=== PATIENT | female | born 1960 | race Caucasian/White ===

== ENCOUNTER 2021-01-04 08:39 | Outpatient (REF) | payer OTHER, SELFPAY ==
--- NOTE | ~2021-01-04 | US_ITS ---
EXAMINATION: US ABDOMEN COMPLETE CLINICAL INFORMATION: Right upper quadrant pain. COMPARISON: 06/20/2014 ultrasound. TECHNIQUE: Real-time imaging of the abdominal viscera. FINDINGS: PANCREAS: The visualized head and body of the pancreas appears unremarkable. Remainder of the pancreas is obscured by bowel gas. ABDOMINAL AORTA: The proximal, mid, and distal segments are normal in caliber. INFERIOR VENA CAVA: Visualized portions are normal. LIVER: Normal. The liver is normal in size. The liver contour is normal. Parenchymal echogenicity is normal. No focal hepatic lesion. There is no intrahepatic biliary duct dilatation seen. GALLBLADDER: Normal. The gallbladder is physiologically distended without evidence of stones, sludge, polyps, wall thickening or pericholecystic fluid. COMMON BILE DUCT: Normal in caliber measuring 0.6 cm in diameter. RIGHT KIDNEY: Normal. No hydronephrosis. No renal calculi or focal parenchymal lesions. The kidney measures 11.3 cm in maximum dimension. LEFT KIDNEY: Normal. No hydronephrosis. No renal calculi or focal parenchymal lesions. The kidney measures 11.2 cm in maximum dimension. SPLEEN: Normal. The spleen measures 9.5 cm in maximum dimension. FREE FLUID: None. US/US abdomen complete IMPRESSION: 1. Unremarkable abdominal ultrasound. 2. No acute findings seen.
== END 2021-01-04 08:40 | disposition home or self-care (01) ==
LOC: HO.HMGCX 08:39
PROVIDERS: Visit Provider Internal Medicine
DX: R10.11 Right upper quadrant pain (principal)
CPT/HCPCS: 76700

== ENCOUNTER 2021-02-02 11:57 | Outpatient (REF) | payer OTHER, SELFPAY | END 2021-02-02 11:58 | disposition home or self-care (01) | LOC: HO.LNP 11:57 | PROVIDERS: Visit Provider Hospitalist | DX: R30.0 Dysuria (principal) | CPT/HCPCS: 87086; 87088; 87186 ==

== ENCOUNTER 2021-03-27 07:44 | Outpatient (REF) | payer OTHER, SELFPAY ==
[2021-03-27 14:10] LABS: MANUAL DIFF FLAG NO
[2021-03-27 14:14] LABS: Basophils Absolute Auto 0.1 X10*3/uL (0.0-0.2); Basophils Percent Auto 1.1 % (0-2); Eosinophils Absolute Auto 0.3 X10*3/uL (0.0-0.4); Eosinophils Percent Auto 4.9 % (0-4); Hematocrit 37.8 % (37-47); Hemoglobin 12.4 g/dl (12.0-16.0); Mean Corpuscular HGB Conc 32.8 g/dl (31.0-35.0); Mean Corpuscular Hemoglobin 30.7 pg (27.0-33.0); Mean Corpuscular Volume 93.6 fL (80-98); Monocytes Absolute Auto 0.5 X10*3/uL (0.1-1.2); Monocytes Percent Auto 8.9 % (2-11); Neutrophils Absolute Auto 2.6 X10*3/uL (2.0-8.3); Neutrophils Percent Auto 48.1 % (45-73); Platelet Count 263 X10*3/uL (160-400); Red Blood Count 4.04 X10*6/uL (4.20-5.50); Red Cell Distribution Width 13.3 % (11.0-16.0); White Blood Count 5.5 X10*3/uL (4.8-10.8)
[2021-03-27 14:24] LABS: Alanine Aminotransferase 16 U/L (0-31); Anion Gap 13 (12-20); Aspartate Amino Transferase 26 U/L (5-31); Blood Urea Nitrogen 28 mg/dL (9-16); Calcium 9.6 mg/dL (8.4-10.2); Carbon Dioxide 25 mmol/L (22-29); Chloride 106 mmol/L (96-108); Cholesterol 221 mg/dL; Estimated Glomerular Filt Rate > 60; Glucose Fasting 86 mg/dL (60-99); HDL Cholesterol 73 mg/dL; LDL Cholesterol Calculated 126 mg/dl; Potassium 4.2 mmol/L (3.3-5.1); Sodium 140 mmol/L (135-145); Triglycerides 111 mg/dL
== END 2021-03-27 07:45 | disposition home or self-care (01) ==
LOC: HO.HMGCLDS 07:44
PROVIDERS: PCP Internal Medicine; Visit Provider Internal Medicine
DX: Z00.01 Encounter for general adult medical examination with abnormal findings (principal); I10 Essential (primary) hypertension; Z78.0 Asymptomatic menopausal state; Z86.000 Personal history of in-situ neoplasm of breast
CPT/HCPCS: 36415; 80048; 80061; 82306; 84450; 84460; 85025

== ENCOUNTER 2021-04-06 11:46 | Outpatient (REF) | payer OTHER, SELFPAY | END 2021-04-06 11:47 | disposition home or self-care (01) | LOC: HO.LAB 11:46 | PROVIDERS: Visit Provider Nurse Practitioner Family | DX: N34.2 Other urethritis (principal) | CPT/HCPCS: 87086; 87088; 87186 ==

== ENCOUNTER 2021-05-20 09:32 | Outpatient (REF) | payer OTHER, SELFPAY ==
[2021-05-21 03:01] LABS: CT PCR NOT DETECTED (Not Detect.); NG PCR NOT DETECTED (Not Detect.)
[2021-05-24 16:37] LABS: HPV mRNA E6/E7 rflx Not Detected (Not Detected)
== END 2021-05-20 09:33 | disposition home or self-care (01) ==
LOC: HO.LAB 09:32
PROVIDERS: PCP Internal Medicine; Visit Provider Advanced Practice Midwife
DX: Z01.419 Encounter for gynecological examination (general) (routine) without abnormal findings (principal); Z11.51 Encounter for screening for human papillomavirus (HPV); Z11.3 Encounter for screening for infections with a predominantly sexual mode of transmission; Z20.2 Contact with and (suspected) exposure to infections with a predominantly sexual mode of transmission
CPT/HCPCS: 87491; 87591; 87624; 88142

== ENCOUNTER 2022-07-11 14:18 | Outpatient (REF) | payer OTHER, SELFPAY ==
[2022-07-11 15:08] LABS: Binax Internal Control QC Valid; Binax Now Covid-19 Ag Positive (Negative)
== END 2022-07-11 14:19 | disposition home or self-care (01) ==
LOC: HO.HMGCLDS 14:18
PROVIDERS: PCP Internal Medicine; Visit Provider Physician Assistant
DX: Z20.822 Contact with and (suspected) exposure to COVID-19 (principal); J98.8 Other specified respiratory disorders; B97.89 Other viral agents as the cause of diseases classified elsewhere
CPT/HCPCS: 87811; C9803

== ENCOUNTER 2022-10-18 07:07 | Day surgery (SDC) | payer OTHER, SELFPAY ==
[2022-10-12 09:54] VITALS: BMI 22.7
--- NOTE | 2022-10-14 12:31 | HO.ANESPROP2 ---
Documented by User: Nevaeh Topete NP 10/14/22 12:32 HPI - Anesthesia Eval Consult details Narrative: 62yo F for Colonoscopy s/p Right mastectomy PMFSH Active Problems Active Problems: All Active Problems (Updated 10/12/22 @ 09:40 by Argelia Lee, JESSIE) Osteopenia of left femoral neck (Acute) History of ductal carcinoma in situ (DCIS) of breast (Acute) Spondylosis of lumbar region without myelopathy or radiculopathy (Acute) Past Medical History Medical History Cigarette smoker motivated to quit Hepatitis C History of COVID-19 History of ductal carcinoma in situ (DCIS) of breast History of varicose veins On Chantix therapy Osteopenia of left femoral neck Spondylosis of lumbar region without myelopathy or radiculopathy Family History Family History Father CAD (coronary artery disease) Mother Medical history non-contributory Brother No problems noted. Sister No problems noted. Daughter No problems noted. Surgical History Surgical History H/O colonoscopy History of endometrial ablation History of right mastectomy History of tubal ligation Social History Social History Housing: House Are you a primary long term care phlebotomist to a significant other at home: No Do you presently have visiting nurse or other home services: No Alcohol intake: current Alcohol intake frequency: holidays/special occasions only Patient Tobacco Use Status: Current everyday Tobacco user Tobacco use type: Cigarette Cigarette Packs Per Day: 0 Cigarettes Per Day: 5 Years Smoked: 30+ e-Cigarette/Vaping Use: Never Used Use of substances other than those prescribed or required for medical reasons: No Have you been hit, kicked, punched, or otherwise hurt by someone within the past year? If so, by whom?: No Are you DNR?: No Advance Directives: No Advance Directives Information Provided: Yes (brochure mailed) Advance Directives on File: No Recently lost weight without trying: No Eating poorly because of decreased appetite: No Nutrition Risks: No Nutritional Risk Poor oral hygiene: No (upper & lower full dentures) service: No Current occupational status: employed Sexual orientation: Straight/Heterosexual Gender identity: Female Cognitive needs: No Hearing needs: No Vision needs: No Meds Allergies Allergy/AdvReac Type Severity Reaction Status Date / Time No Known Allergies Allergy Verified 07/20/22 13:40 [No Known Allergies*] Home Medications Medication Instructions Recorded Confirmed Last Taken Type ascorbate calcium (vitamin C) 500 500 mg PO DAILY 03/24/21 10/12/22 Unknown History mg tablet calcium carbonate 500 mg calcium 500 mg PO DAILY 03/24/21 10/12/22 Unknown History (1,250 mg) tablet (Calcium 500) cholecalciferol (vitamin D3) 25 25 mcg PO DAILY 03/24/21 10/12/22 Unknown History mcg (1,000 unit) capsule multivitamin 1 tab PO DAILY 03/24/21 10/12/22 Unknown History Exam Exam Date and Time: October 14, 2022 1231 Height,Weight and Vital Signs: Height 5 ft 7 in Weight 65.771 kg Assessment and Plan Assessment Anesthesia Assessment: Chart Reviewed Documented by User: Guillermo Lawrence MD 10/18/22 09:02 [facility] Past Medical History Medical History Cigarette smoker motivated to quit Hepatitis C History of COVID-19 History of ductal carcinoma in situ (DCIS) of breast History of varicose veins On Chantix therapy Osteopenia of left femoral neck Spondylosis of lumbar region without myelopathy or radiculopathy Family History Family History Father CAD (coronary artery disease) Mother Medical history non-contributory Brother No problems noted. Sister No problems noted. Daughter No problems noted. Family history of problems with anesthesia: No Surgical History Surgical History H/O colonoscopy History of endometrial ablation History of right mastectomy History of tubal ligation History of Problems with Anesthesia: No Social History Social History Housing: House Are you a primary long term care phlebotomist to a significant other at home: No Do you presently have visiting nurse or other home services: No Alcohol intake: current Alcohol intake frequency: holidays/special occasions only Patient Tobacco Use Status: Current everyday Tobacco user Tobacco use type: Cigarette Cigarette Packs Per Day: 0 Cigarettes Per Day: 5 Years Smoked: 30+ e-Cigarette/Vaping Use: Never Used Use of substances other than those prescribed or required for medical reasons: No Have you been hit, kicked, punched, or otherwise hurt by someone within the past year? If so, by whom?: No Are you DNR?: No Advance Directives: No Advance Directives Information Provided: Yes (brochure mailed) Advance Directives on File: No Recently lost weight without trying: No Eating poorly because of decreased appetite: No Nutrition Risks: No Nutritional Risk Poor oral hygiene: No (upper & lower full dentures) service: No Current occupational status: employed Sexual orientation: Straight/Heterosexual Gender identity: Female Cognitive needs: No Hearing needs: No Vision needs: No Meds Allergies Allergy/AdvReac Type Severity Reaction Status Date / Time No Known Allergies Allergy Verified 07/20/22 13:40 [No Known Allergies*] Home Medications Medication Instructions Recorded Confirmed Last Taken Type ascorbate calcium (vitamin C) 500 500 mg PO DAILY 03/24/21 10/12/22 Unknown History mg tablet calcium carbonate 500 mg calcium 500 mg PO DAILY 03/24/21 10/12/22 Unknown History (1,250 mg) tablet (Calcium 500) cholecalciferol (vitamin D3) 25 25 mcg PO DAILY 03/24/21 10/12/22 Unknown History mcg (1,000 unit) capsule multivitamin 1 tab PO DAILY 03/24/21 10/12/22 Unknown History Exam Airway Mallampati Class: II TM Dist: >3cm Denture: Upper and Lower Loose/Missing/Broken Teeth: No Heart: rrr Lungs: clear Assessment and Plan Final Anesthetic Review Family History of Problems with Anesthesia: No History of Problems with Anesthesia: No NPO: Yes ASA Class: II Final Preanesthetic Review: No Changes in Pt Med Stat, Meds/Allgs Chart Reviewed and Anes Risks/Benef Reviewed Patient Risk: Intermediate Procedure Risk: Low Anesthetic Plan Anesthetic Plan: MAC: Disposition: Standard PACU
[2022-10-18 07:24] VITALS: BP 134/87; PULSE 80; RESP 16; TEMP 36.4; O2SAT 99
[2022-10-18] MEDS: Lactated Ringers 1,000 ML 100 ML IVCONT (07:37)
--- NOTE | 2022-10-18 09:05 | MHC.SHP ---
Pre-Procedural Eval Section A Date of Service: 10/18/22 Section B Chief Complaint: screening Details of Present Illness: 62 y.o F here for screening colo. Last colonoscopy in June of 2012 that showed no polyps. pt also previously had complained of intermittent dysphagia that has now resolved. ? Relevant Social History: Tobacco Use Present Medications: see Short Stay Collaborative assessment Medical History: Significant History (Osteopenia, DCIS ) Allergies: Allergies Allergy/AdvReac Type Severity Reaction Status Date / Time No Known Allergies Allergy Verified 07/20/22 13:40 [No Known Allergies*] Review of Systems Review of Systems Comment: 10 point ROS negative except as noted above Exam Exam Comment: Gen appear: No acute distress, well nourished HEENT: no icterus Chest: No overt resp distress Abd: soft, nontender, nondistended Psych: Stable affect, answering questions appropriately Neuro: A/Ox3 noted to move all extremities spontaneously Ext: no peripheral edema Plan Diagnosis/Plan: Unchanged I have reviewed the history and physical and performed a pertinent physical examination on my patient. No changes have occurred unless specified. Time Spent With Patient Time: Total time managing care of this patient today ____ minutes.
--- NOTE | 2022-10-18 09:08 | P.OP_ITS ---
Operative Note Operative Note Date of Service: 10/18/22 Narrative: Procedure: Colonoscopy Indication: Screening Endoscopist: Aisha Zimmerman MD Anesthesia Provider: Dr Guillermo Lawrence Anesthesia type: MAC Instrument: Olympus [id number]-H190L Consent: Indication, risks vs benefits, and alternatives were discussed with the patient who gave written informed consent to proceed. EKG, pulse, pulse oximetry and blood pressure were monitored throughout the procedure. Please see anesthesia flowsheet. Procedure: The patient was brought to the procedure room and placed in the left lateral decubitus position. IV medications were administered by the anesthesia provider in attendance. A digital rectal exam was performed which was normal. The colonoscope was then inserted through the anus and advanced through the colon to the cecum at 75 cm,and terminal ileum. Ileocecal valve and appendiceal orifice were identified. Mucosa was carefully examined under high definition white light as the instrument was slowly withdrawn in a retrograde panoramic fashion. Retroflexion was performed in rectum. The procedure was somewhat difficult due to sharp angulation in sigmoid colon at 35 cm and patient was turned to supine position to advance and then turned back to left lateral decubitus. There were no immediate obvious complications. The quality of the prep was BBPS: 2+3+2 = adequate Withdrawal time 16 minutes. Limitations: No limitations. Findings: Mucosa: Normal to cecum and terminal ileum. Protruding lesions: * 2 sessile polyp of size 3-8 mm in cecum. Cold snare polypectomy was performed. The polyp was completely removed and retrieved. * 2 flat polyp of size 5-7 mm in ascending colon. Cold snare polypectomy was performed. The polyp was completely removed and retrieved. * 1 sessile polyp of size 5 mm in descending colon. Cold snare polypectomy was performed. The polyp was completely removed and retrieved. * 1 sessile polyp of size 7 mm in sigmoid colon. Cold snare polypectomy was performed. The polyp was completely removed and retrieved. * Medium internal hemorrhoids without stigmata of recent bleeding. Excavated lesions: * Small mouthed diverticula in left sided of the colon. Impression: 1. Normal colon and terminal ileum mucosa 2. Total of 6 polyps removed from cecum, ascending, descending, and sigmoid colon. 3. Left sided diverticulosis 4. Internal hemorrhoids Recommendations: - Follow path results. - Repeat colonoscopy in 3 years if polyps are adenomas or sessile serrated. - Optimize fiber intake.
[2022-10-18 10:02] VITALS: BP 122/82; PULSE 66; RESP 14; TEMP 36.1; O2SAT 99
[2022-10-18 10:16] VITALS: BP 131/88; PULSE 68; RESP 16; TEMP 36.1; O2SAT 98
== END 2022-10-18 10:41 ==
PROVIDERS: PCP Internal Medicine; Visit Provider Internal Medicine
PROC: 0DJD8ZZ Inspection of Lower Intestinal Tract, Via Natural or Artificial Opening Endoscopic (ICD-10-PCS; CPT 45378; principal; 2022-10-18 08:20)
DX: Z12.11 Encounter for screening for malignant neoplasm of colon (principal); R13.10 Dysphagia, unspecified; D12.0 Benign neoplasm of cecum; D12.2 Benign neoplasm of ascending colon; D12.4 Benign neoplasm of descending colon; K63.5 Polyp of colon; K57.30 Diverticulosis of large intestine without perforation or abscess without bleeding; K64.8 Other hemorrhoids; B19.20 Unspecified viral hepatitis C without hepatic coma; M85.88 Other specified disorders of bone density and structure, other site; Z85.3 Personal history of malignant neoplasm of breast; Z90.11 Acquired absence of right breast and nipple; Z79.899 Other long term (current) drug therapy; F17.210 Nicotine dependence, cigarettes, uncomplicated
CPT/HCPCS: 45385; 88305

== ENCOUNTER → 2022-11-01 11:55 | Outpatient (BNVA) | payer OTHER, SELFPAY | PROVIDERS: PCP Internal Medicine; Visit Provider Nurse Practitioner Family | DX: Z13.89 Encounter for screening for other disorder (principal) ==

== ENCOUNTER 2022-11-21 14:01 | Outpatient (REF) | payer OTHER, SELFPAY ==
--- NOTE | ~2022-11-21 | MM_ITS ---
EXAMINATION: MM SCREENING DIGITAL BREAST TOMOSYNTHESIS, LEFT CLINICAL INFORMATION: Screening. Asymptomatic. Status post right mastectomy. COMPARISON: Mammography: November 03, 2021 and studies dating back to June 01, 2016 TECHNIQUE: Digital breast tomosynthesis is performed in both the craniocaudal and mediolateral oblique views along with computer-aided detection (CAD). Synthesized 2D images are generated from the tomosynthesis. FINDINGS: The breasts are extremely dense, which lowers the sensitivity of mammography (ACR BI-RADS breast composition Category d). There are no significant masses, abnormal calcifications, or other abnormalities. MM/MM tomosynthesis screening LT IMPRESSION: No significant changes from prior exam. ASSESSMENT: BI-RADS 1: Negative RECOMMENDATION: Routine annual mammography screening. This patient's information was entered into a reminder system with a target due date for their next mammogram.
== END 2022-11-21 14:02 | disposition home or self-care (01) ==
LOC: HO.MAMMO 14:01
PROVIDERS: PCP Internal Medicine; Visit Provider Internal Medicine
DX: Z12.31 Encounter for screening mammogram for malignant neoplasm of breast (principal)
CPT/HCPCS: 77063; 77067

== ENCOUNTER → 2023-03-07 14:07 | Outpatient (BNVA) | payer OTHER, SELFPAY | PROVIDERS: PCP Internal Medicine; Visit Provider Advanced Practice Midwife ==

== ENCOUNTER 2023-08-18 15:11 | Outpatient (REF) | payer OTHER, SELFPAY | END 2023-08-18 15:12 | disposition home or self-care (01) | LOC: HO.HOSX 15:11 | PROVIDERS: Visit Provider Physician Assistant | DX: Z13.89 Encounter for screening for other disorder (principal) ==

== ENCOUNTER 2023-11-24 15:49 | Outpatient (REF) | payer OTHER, SELFPAY ==
--- NOTE | ~2023-11-24 | MM_ITS ---
EXAMINATION: MM SCREENING DIGITAL BREAST TOMOSYNTHESIS, BILATERAL CLINICAL INFORMATION: Screening. Asymptomatic. The patient is status post right mastectomy. COMPARISON: Mammography: This study is compared with prior exams dating back to 2018. TECHNIQUE: Digital breast tomosynthesis is performed in both the craniocaudal and mediolateral oblique views along with computer-aided detection (CAD). Synthesized 2D images are generated from the tomosynthesis. FINDINGS: The breasts are heterogeneously dense, which may obscure small masses (ACR BI-RADS breast composition Category c). There are no significant masses, abnormal calcifications, or other abnormalities. MM/MM tomosynthesis screening LT IMPRESSION: No mammographic evidence of malignancy. ASSESSMENT: BI-RADS BI-RADS 1 - Negative RECOMMENDATION: Routine annual mammography screening. 1 year F/U This examination should not preclude the clinical evaluation of a suspicious palpable abnormality. This patient's information was entered into a reminder system with a target due date for their next mammogram.
== END 2023-11-24 15:50 | disposition home or self-care (01) ==
LOC: HO.MAMMO 15:49
PROVIDERS: PCP Internal Medicine; Visit Provider Internal Medicine
DX: Z12.31 Encounter for screening mammogram for malignant neoplasm of breast (principal)
CPT/HCPCS: 77063; 77067

== ENCOUNTER → 2023-11-24 16:30 | Outpatient (BNV) | payer OTHER, SELFPAY | PROVIDERS: PCP Internal Medicine; Visit Provider Radiology Diagnostic Radiology | DX: Z12.31 Encounter for screening mammogram for malignant neoplasm of breast (principal) | CPT/HCPCS: 77063; 77067 ==

== ENCOUNTER 2024-02-07 14:01 | Outpatient (AMB) | payer OTHER, SELFPAY ==
--- NOTE | 2024-02-07 14:23 | AM.OFFWIN_ITS ---
Intake Vital Signs 02/07/24 14:24 Height 5 ft 7 in Weight 136 lb 4 oz BMI 21.3 BP 110/62 Blood Pressure Location Lt brachial Position Sitting Pulse 76 Pulse Source Pulse Oximeter Temp 98.7 F Temp Source Oral Pulse Oximetry (%) 98 Oxygen Delivery Method Room Air Intake Visit Reasons: EP RT arm pain (lobby) Intake Note: Patient is here with right arm pain for about a month, last week and half has been worse, waking her up in the middle of the night. Patient Tobacco Use Status: Current everyday Tobacco user Allergies No Known Allergies [No Known Allergies*] Allergy (Verified 02/07/24 14:26) Do you need a note to return to daycare/school/sports/work: No HPI HPI Comments History of Present Illness Details The patient presents to urgent care for evaluation of left arm pain. It has been going on for about a month. 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 She feels that this might be contributing to the discomfort she is experiencing over her biceps. There was no direct trauma. No swelling bruising. She is still able to work. Patient has been using Tylenol for pain. [facility] Medical History Cigarette smoker motivated to quit Hepatitis C History of COVID-19 History of ductal carcinoma in situ (DCIS) of breast History of varicose veins On Chantix therapy Osteopenia of left femoral neck Spondylosis of lumbar region without myelopathy or radiculopathy Tubular adenoma Surgical History H/O colonoscopy History of endometrial ablation History of esophagogastroduodenoscopy (EGD) History of right mastectomy History of tubal ligation Family History Father CAD (coronary artery disease) Mother Medical history non-contributory Brother No problems noted. Sister No problems noted. Daughter No problems noted. Social History (Updated 03/07/23 @ 14:25 by LAWRENCE Proctor) Housing: House Are you a primary health care facilities inspector to a significant other at home: No Do you presently have visiting nurse or other home services: No Alcohol intake: current Alcohol intake frequency: holidays/special occasions only Patient Tobacco Use Status: Current everyday Tobacco user Tobacco use type: Cigarette Cigarette Packs Per Day: 0 Cigarettes Per Day: 5 Years Smoked: 30+ e-Cigarette/Vaping Use: Never Used service: No Current occupational status: employed Sexual orientation: Straight/Heterosexual Gender identity: Female Cognitive needs: No Hearing needs: No Vision needs: No Physical Exam Vital Signs: Last Vital Signs Temp 98.7 F 02/07/24 14:24 Pulse 76 02/07/24 14:24 BP 110/62 02/07/24 14:24 Pulse Ox 98 02/07/24 14:24 Oxygen Delivery Method Room Air 02/07/24 14:24 BMI result Body Mass Index 21.3 Const General: healthy appearing and no acute distress Orientation/consciousness: patient oriented x3 Eyes Corneas: corneas normal Pupils: Equal, round and reactive pupils present Chest Chest palpation & inspection: no tenderness Resp Effort & Inspection: normal respiratory effort and able to speak in complete sentences Neuro General: patient oriented x3 Cranial nerves: Yes Equal, round and reactive pupils present Extrem Other: Right upper extremity: Unremarkable in appearance no soft tissue swelling no bony deformity no bruising no redness. Minimally tender to palpation over the deltoid. No significant bicipital tendonitis appreciated on exam Full range of motion of the right upper extremity full range of motion of the elbow wrist and hand. Psych Appearance: grossly normal Attitude: cooperative Assessment & Plan Assessment & Plan (1) Overuse syndrome: Code(s): X50.3XXA - Overexertion from repetitive movements, initial encounter Plan Right upper extremity pain secondary to overuse. Muscle strain likely. Tendon itis possibly though not exquisitely tender over the bicipital tendon insertion. Recommend ibuprofen and resting the right upper extremity. Coding Level of Care Code Est Pt Level 3 (65198) Diagnoses Overuse syndrome X50.3XXA
[2024-02-07 14:24] VITALS: BP 110/62; PULSE 76; TEMP 37.1; O2SAT 98; BMI 21.3
== END 2024-02-07 15:14 | disposition home or self-care (01) ==
PROVIDERS: PCP Internal Medicine; Visit Provider Emergency Medicine
DX: M79.601 Pain in right arm (principal); X50.3XXA Overexertion from repetitive movements, initial encounter; Z04.2 Encounter for examination and observation following work accident
CPT/HCPCS: 99213

== ENCOUNTER 2024-05-21 13:08 | Outpatient (AMB) | payer OTHER, SELFPAY ==
--- NOTE | 2024-05-21 13:12 | MHC.OFFVIS ---
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 She is doing well with no concerns. Attempting to eat a healthy diet with calcium and vitamin D and stays active with exercise. Currently not sexually active. Denies any vaginal dryness or irritation. STI testing offered; she declined. Last pap smear; 2020. Last mammogram; 2023. Colonoscopy is UTD. Denies any family history of breast, ovarian or colon cancer. She reports she has cut down on smoking. 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 Sister No problems noted. Daughter No problems noted. Social History Housing: House Are you a primary manager urgent care to a significant other at home: No Do you presently have visiting nurse or other home services: No Alcohol intake: current Alcohol intake frequency: holidays/special occasions only Patient Tobacco Use Status: Current everyday Tobacco user Tobacco use type: Cigarette Cigarette Packs Per Day: 0 Cigarettes Per Day: 5 Years Smoked: 30+ e-Cigarette/Vaping Use: Never Used service: No Current occupational status: employed Sexual orientation: Straight/Heterosexual Gender identity: Female Cognitive needs: No Hearing needs: No Vision needs: No Female Reproductive History Menstrual Total pregnancies: 1 Full term: 1 Number of Living Children: 1 Date of last pap smear: 05/20/21 (neg pap and hpv) Date of Mammogram: 11/24/23 (Birad 1) History of abnormal mammogram: Yes Review of Systems Const All systems reviewed & are unremarkable except as noted in HPI and below Reports as per HPI Eyes Reports no additional complaints ENT Reports no additional complaints Card Reports no additional complaints Resp Reports no additional complaints GI Reports as per HPI and Reports no additional complaints Reports as per HPI Musc Reports no additional complaints Skin/Breast Reports as per HPI Neuro Reports no additional complaints Psych Reports no additional complaints Endo Reports no additional complaints Trung/Lymph Reports no additional complaints Aller/Immun Reports no additional complaints Physical Exam Vital Signs: Last Vital Signs BP 120/80 05/21/24 13:14 BMI result Body Mass Index 20.0 Const General: cooperative, healthy appearing, no acute distress, well developed and alert Orientation/consciousness: patient oriented x3 HEENT Head: Yes normal to inspection Eyes General: appearance normal, both eyes and all related structures Neck Neck: Yes normal visual inspection Thyroid: Thyroid normal Chest Other: Right postsurgical scarring in implant Chest palpation & inspection: normal inspection of the chest and other (no puckering, dimpling, peau de orange, retraction, discharge, masses) Breast/axilla inspection: normal inspection of the breasts Breast/axilla palpation: normal palpation of the breasts Resp Effort & Inspection: normal respiratory effort GI Inspection: Yes normal to inspection Palpation (GI): Soft to palpation Rectal Exam - Female: deferred General: Yes bladder normal to palpation External Female Exam: normal external appearance and normal appearance of the urethra Speculum Exam - Vagina: normal appearance of the vagina, normal palpation, normal vaginal discharge and vagina atrophic Speculum Exam - Cervix: normal appearance of the cervix and normal palpation Bimanual exam- vagina & uterus: normal bimanual exam, normal palpation, uterine size normal, bladder normal to palpation, normal palpation and non-tender Bimanual Exam- Adnexa, other: no masses Skin General skin exam: no rashes or lesions noted Rashes: no rashes Neuro General: patient oriented x3 Cognition (Neuro): normal cognition Extrem General: Yes normal to inspection Psych Attitude: cooperative Thought process: Normal thought process present Assessment & Plan Assessment & Plan (1) Encounter for well woman exam with routine gynecological exam: Code(s): Z01.419 - Encounter for gynecological examination (general) (routine) without abnormal findings Category: Medical Plan Discussed: Current recommendations for pap smears per ASCCP guidelines. Breast awareness, periodic self breast exams and yearly mammogram. Maintain a healthy lifestyle, well balanced diet including Calcium 1,200 mg and Vitamin D 600 IU daily, and routine exercise. Contact the office with any postmenopausal bleeding. Patient verbalizes understanding and agrees to the plan of care. She was given opportunity to ask questions and all questions were answered to the best of my ability. 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 This note is constructed using voice recognition software. While every effort has been made to ensure accuracy, clay puddler errors may have been included. Coding Level of Care Code Est Pt Prev Care >65y(35942) Diagnoses Encounter for well woman exam with routine gynecological exam Z01.419
[2024-05-21 13:14] VITALS: BP 120/80
== END 2024-05-21 13:42 | disposition home or self-care (01) ==
PROVIDERS: PCP Internal Medicine; Visit Provider Advanced Practice Midwife
DX: Z01.419 Encounter for gynecological examination (general) (routine) without abnormal findings (principal)
CPT/HCPCS: 99397

== ENCOUNTER → 2024-05-21 13:08 | Outpatient (BNVA) | payer OTHER, SELFPAY | PROVIDERS: PCP Internal Medicine; Visit Provider Advanced Practice Midwife ==

== ENCOUNTER 2024-05-31 08:32 | Outpatient (AMB) | payer OTHER, SELFPAY ==
--- NOTE | 2024-05-31 08:42 | MHC.PC.OV ---
Intake Visit Reasons: depression Andriod [phone] Allergies No Known Allergies [No Known Allergies*] Allergy (Verified 05/31/24 17:05) Medication List - Last Reconciled 05/31/24 by Shoshana Hunter MD ascorbate calcium (vitamin C) 500 mg PO DAILY calcium carbonate (Calcium 500) 500 mg PO DAILY cholecalciferol (vitamin D3) 25 mcg PO DAILY diclofenac sodium 1% (Arthritis Pain (diclofenac)) 2 grams topical QID multivitamin 1 tab PO DAILY Tobacco use date assessed: 05/31/24 Fall risk assessment: No Falls in past year Last assessed Fall Risk: 05/31/24 Dental Screening Dental Screen Date: 05/31/24 Did you have a dental visit in the last 12 months?: No Did you have a dental problem in the last 6 months where you did not have access to dental care?: No Was dental information given to patient?: Patient declined HPI depression Andriod [phone] HPI Details Done as here complaining of feeling anxious all the time, patient states that she has been under lot of stress at home with her personal life. Complains of having no energy, has anhedonia , does not want to do anything. . 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 Sister No problems noted. Daughter No problems noted. Social History Housing: House Are you a primary direct care specialist to a significant other at home: No Do you presently have visiting nurse or other home services: No Alcohol intake: current Alcohol intake frequency: holidays/special occasions only Patient Tobacco Use Status: Current everyday Tobacco user Tobacco use type: Cigarette Cigarette Packs Per Day: 0 Cigarettes Per Day: 5 Years Smoked: 30+ e-Cigarette/Vaping Use: Never Used service: No Current occupational status: employed Sexual orientation: Straight/Heterosexual Gender identity: Female Cognitive needs: No Hearing needs: No Vision needs: No Questionnaire PHQ-9 Over the last 2 weeks, how often have you been bothered by any of the following problems? 1. Little interest or pleasure in doing things: more than half the days 2. Feeling down, depressed, or hopeless: more than half the days 3. Trouble falling or staying asleep, or sleeping too much: nearly every day 4. Feeling tired or having little energy: nearly every day 5. Poor appetite or overeating: more than half the days 6. Feeling bad about yourself - or that you are a failure or have let yourself or your family down: more than half the days 7. Trouble concentrating on things, such as reading the newspaper or watching television: several days 8. Moving or speaking so slowly that other people could have noticed. Or the opposite - being so fidgety or restless that you have been moving around a lot more than usual: more than half the days 9. Thoughts that you would be better off or of hurting yourself in some way: not at all Total score: 17 Depression Screening Interpretation: Positive Depression Screening Follow-up: New Medication prescribed and Community Mental Health Worker F/U Depression Screening Done: Yes 53635 - PHQ-9 Billing: Yes Source: Developed by Drs. Piyush Crandall, Melania Cunningham, Aleksander Lira and colleagues, with an educational claudio from [employer]. Thrive Questionnaire Date Thrive assessed: 05/31/24 I am a: Patient What is your living situation today?: I have a steady place to live Within the past 12 months, did the food you bought not last and you didn't have the money to get more?: Sometimes True Within the past 12 months, did you worry whether your food would run out before you got money to buy more?: Sometimes True Do you have trouble paying for medicines?: No Do you have trouble getting transportation to medical appointments?: No Do you have trouble paying your heating and electricity bill?: No Do you have trouble taking care of your child, family member or friend?: No Do you have trouble with day-to-day activities such as bathing, preparing meals, shopping, managing finances, etc.?: No Are you currently unemployed and looking for a job?: No Are you interested in more education?: No Please select the resources that you would like help with: None Currently or been in a relationship where the following occur: No concerns reported THRIVE Score: 2 AUDIT C Alcohol Use Questionnaire (AUDIT-C) 1. How often do you have a drink containing alcohol?: 2-4 times a month 2. How many drinks containing alcohol do you have on a typical day when you are drinking?: 1 or 2 3. How often do you have six or more drinks on one occasion?: Never Total Score: 2 Score Reviewed/Action Taken: Yes CITLALLI-7 AMB Questionnaire CITLALLI-7 Date CITLALLI - 7 assessed: 05/31/24 Feeling nervous, anxious, or on edge: 1 = Several days Not being able to stop or control worryin = Several days Worrying too much about different things: 2 = More than half the days Trouble relaxin = More than half the days Being so restless that it is hard to sit still: 1 = Several days Becoming easily annoyed or irritable: 2 = More than half the days Feeling afraid as if something awful might happen: 1 = Several days Total CITLALLI-7 score (0-4 normal; 5-9 mild; 10-14 moderate; 15-21 severe): 10 Source: Developed by Drs. Piyush Crandall, Melania Cunningham, Aleksander Lira and colleagues, with an educational caludio from [employer]. CITLALLI-7 Assessment Billing CITLALLI-7 Assessment Tool: CITLALLI-7 Assessment 79407 Review of Systems Const Reports as per HPI, Denies body aches, Reports difficulty sleeping and Reports poor appetite Eyes Reports no additional complaints ENT Reports no additional complaints Card Reports no additional complaints Resp Reports no additional complaints GI Denies abdominal pain, Denies change in bowel habits and Denies heartburn Reports as per HPI Musc Reports no additional complaints Skin/Breast Reports as per HPI Neuro Reports no additional complaints Psych Reports as per HPI Endo Reports no additional complaints Trung/Lymph Reports no additional complaints Aller/Immun Reports no additional complaints Physical exam (Primary Care) Tobacco/Smoking Status: Tobacco use Status Tobacco use date assessed 05/31/24 05/31/24 08:47 Patient Tobacco Use Status Current everyday Tobacco 05/31/24 08:47 Tobacco use type Cigarette 05/31/24 08:47 e-Cigarette/Vaping Use Never Used 05/31/24 08:47 PHQ-9: PHQ-9 Score PHQ-9: Total score 17 05/31/24 10:17 Depression Screening Interpretation: Positive Depression Screening Follow-up: New Medication prescribed and Community Mental Health Worker F/U Thrive Assessment: Date of Thrive Assessment Date Thrive assessed 05/31/24 05/31/24 08:47 Currently or been in a relationship where the following occur: No concerns reported Telehealth Telehealth Telehealth Platform: POKKT Location of provider rendering services: practice address Location of patient: address on file Patient Identification confirmed using: Name, : Yes Telehealth method: video Patient verbally consented to treatment: Yes Patient verbally consented to billing insurance company: Yes Patient informed of any privacy concerns related to visit: Yes Minutes spent on Phone/Video with Pt.: 15 Assessment and Plan Assessment & Plan (1) Generalized anxiety disorder: Code(s): F41.1 - Generalized anxiety disorder Plan: Will start on sertraline 50 mg per tablet, advised to try initially take half a tablet for 1 week, and see how she is doing on it if stable on that dose continue with the same dose otherwise may increase to 50 mg once a day on the 2nd week. Referred to our mental health coordinator for assistance in getting in for psychotherapy. Will see her back for follow-up via telehealth in 4 weeks after starting medication Medications: New sertraline 50 mg PO DAILY 30 tabs 0RF Coding Level of Care Code Tele Est Pt Level 3 (68424) Diagnoses Generalized anxiety disorder F41.1 Additional Codes CITLALLI-7 Assessment Billing - CITLALLI-7 Assessment Tool: CITLALLI-7 Assessment 92178 ([id number])
== END 2024-05-31 13:33 | disposition home or self-care (01) ==
LOC: HO.HMGC 08:32
PROVIDERS: PCP Internal Medicine; Visit Provider Internal Medicine
DX: F41.1 Generalized anxiety disorder (principal)
CPT/HCPCS: 96127; 99213

== ENCOUNTER 2024-07-19 10:23 | Outpatient (AMB) | payer OTHER, SELFPAY ==
--- NOTE | 2024-07-19 10:57 | A.OFFPC_ITS ---
Intake Visit Reasons: 4 Week follow up depression Andriod [phone] Allergies No Known Allergies [No Known Allergies*] Allergy (Verified 07/19/24 11:22) Medication List - Last Reconciled 07/19/24 by Shoshana Hunter MD ascorbate calcium (vitamin C) 500 mg PO DAILY calcium carbonate (Calcium 500) 500 mg PO DAILY cholecalciferol (vitamin D3) 25 mcg PO DAILY diclofenac sodium 1% (Arthritis Pain (diclofenac)) 2 grams topical QID multivitamin 1 tab PO DAILY Tobacco use date assessed: 07/19/24 Fall risk assessment: No Falls in past year Last assessed Fall Risk: 07/19/24 Dental Screening Dental Screen Date: 07/19/24 Did you have a dental visit in the last 12 months?: No Did you have a dental problem in the last 6 months where you did not have access to dental care?: No Was dental information given to patient?: Patient declined HPI 4 Week follow up depression Andriod [phone] HPI Details 64-year-old lady here today for follow-u p on her depression with anxiety. She was started on sertraline 50 mg once a day, but had patient has stopped taking the medication as it was causing her to have insomnia. Patient also states that she has been more depressed lately, mom recently . She has been referred to [facility] in counseling, but was unable to keep her appointment by telehealth as she was unable to connect online with them. Patient would like to have in person therapy.. 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 Sister No problems noted. Daughter No problems noted. Social History Housing: House Are you a primary manager medicare to a significant other at home: No Do you presently have visiting nurse or other home services: No Alcohol intake: current Alcohol intake frequency: holidays/special occasions only Patient Tobacco Use Status: Current everyday Tobacco user Tobacco use type: Cigarette Cigarette Packs Per Day: 0 Cigarettes Per Day: 5 Years Smoked: 30+ e-Cigarette/Vaping Use: Never Used service: No Current occupational status: employed Sexual orientation: Straight/Heterosexual Gender identity: Female Cognitive needs: No Hearing needs: No Vision needs: No Questionnaire PHQ-9 Over the last 2 weeks, how often have you been bothered by any of the following problems? 1. Little interest or pleasure in doing things: several days 2. Feeling down, depressed, or hopeless: several days 3. Trouble falling or staying asleep, or sleeping too much: more than half the days 4. Feeling tired or having little energy: more than half the days 5. Poor appetite or overeating: more than half the days 6. Feeling bad about yourself - or that you are a failure or have let yourself or your family down: not at all 7. Trouble concentrating on things, such as reading the newspaper or watching television: more than half the days 8. Moving or speaking so slowly that other people could have noticed. Or the opposite - being so fidgety or restless that you have been moving around a lot more than usual: not at all 9. Thoughts that you would be better off or of hurting yourself in some way: not at all Total score: 10 Depression Screening Interpretation: Positive Depression Screening Follow-up: Existing condition, In treatment, New Medication prescribed and Community Mental Health Worker F/U Depression Screening Done: Yes Source: Developed by Drs. Piyush Crandall, Melania Cunningham, Aleksander Lira and colleagues, with an educational claudio from [employer] system. Thrive Questionnaire Date Thrive assessed: 05/31/24 AUDIT C Alcohol Use Questionnaire (AUDIT-C) 2. How many drinks containing alcohol do you have on a typical day when you are drinking?: 1 or 2 3. How often do you have six or more drinks on one occasion?: Never Total Score: 0 CITLALLI-7 AMB Questionnaire CITLALLI-7 Date CITLALLI - 7 assessed: 07/19/24 Feeling nervous, anxious, or on edge: 2 = More than half the days Not being able to stop or control worryin = Several days Worrying too much about different things: 1 = Several days Trouble relaxin = Several days Being so restless that it is hard to sit still: 0 = Not at all Becoming easily annoyed or irritable: 1 = Several days Feeling afraid as if something awful might happen: 0 = Not at all Total CITLALLI-7 score (0-4 normal; 5-9 mild; 10-14 moderate; 15-21 severe): 6 Source: Developed by Drs. Piyush Crandall, Melania Cunningham, Aleksander Lira and colleagues, with an educational claudio from [employer] system. CITLALLI-7 Assessment Billing CITLALLI-7 Assessment Tool: CITLALLI-7 Assessment 08087 Review of Systems Const All systems reviewed & are unremarkable except as noted in HPI and below ENT Reports no additional complaints Card Denies chest pain, Denies irregular heart rhythm and Denies lightheadedness Resp Reports no additional complaints GI Reports no additional complaints Neuro Reports no additional complaints Psych Reports as per HPI Physical exam (Primary Care) Tobacco/Smoking Status: Tobacco use Status Tobacco use date assessed 07/19/24 07/19/24 11:01 Patient Tobacco Use Status Current everyday Tobacco 07/19/24 11:01 Tobacco use type Cigarette 07/19/24 11:01 e-Cigarette/Vaping Use Never Used 07/19/24 11:01 PHQ-9: PHQ-9 Score PHQ-9: Total score 10 07/19/24 11:01 Depression Screening Interpretation: Positive Depression Screening Follow-up: Existing condition, In treatment, New Medication prescribed and Community Mental Health Worker F/U Thrive Assessment: Date of Thrive Assessment Date Thrive assessed 05/31/24 07/19/24 11:01 Telehealth Telehealth Telehealth [facility]: [facility] Location of provider rendering services: practice address Location of patient: address on file Patient Identification confirmed using: Name, : Yes Telehealth method: video Patient verbally consented to treatment: Yes Patient verbally consented to billing insurance company: Yes Patient informed of any privacy concerns related to visit: Yes Minutes spent on Phone/Video with Pt.: 15 Assessment and Plan Assessment & Plan (1) Depression with anxiety: Code(s): F41.8 - Other specified anxiety disorders Plan: Unable to tolerate sertraline, to get for 3 days but was unable to sleep when taking it. Will start on bupropion HCL SR 100 mg per tablet to take 1 tablet once a day in a.m.. Advised to call [facility] in counseling to reschedule her appointment for intake. Will see her back for follow-up in 4 weeks after starting the medication. Discussed possible side effects of the medication which may include insomnia if taken late during the day. Medications: New bupropion HCl SR 100 mg PO QAM 30 tabs 1RF Coding Level of Care Code Tele Est Pt Level 3 (15381) Diagnoses Depression with anxiety F41.8 Additional Codes CITLALLI-7 Assessment Billing - CITLALLI-7 Assessment Tool: CITLALLI-7 Assessment 78691 ([id number])
== END 2024-07-19 13:35 | disposition home or self-care (01) ==
PROVIDERS: PCP Internal Medicine; Visit Provider Internal Medicine
DX: F41.8 Other specified anxiety disorders (principal)

== ENCOUNTER → 2024-07-19 10:23 | Outpatient (BNVA) | payer OTHER, SELFPAY | PROVIDERS: PCP Internal Medicine; Visit Provider Internal Medicine | DX: F41.8 Other specified anxiety disorders (principal) | CPT/HCPCS: 96127 ==

== ENCOUNTER 2024-09-04 11:59 | Outpatient (AMB) | payer OTHER, SELFPAY ==
[2024-09-04 12:12] VITALS: BP 108/80; PULSE 72; O2SAT 99
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
== END 2024-09-04 15:59 | disposition home or self-care (01) ==
PROVIDERS: PCP Internal Medicine; Visit Provider Internal Medicine
DX: Z00.01 Encounter for general adult medical examination with abnormal findings (principal); F17.210 Nicotine dependence, cigarettes, uncomplicated; Z71.89 Other specified counseling; F41.8 Other specified anxiety disorders; Z86.0101 Personal history of adenomatous and serrated colon polyps; M85.852 Other specified disorders of bone density and structure, left thigh

== ENCOUNTER → 2024-09-04 11:59 | Outpatient (BNVA) | payer OTHER, SELFPAY | PROVIDERS: PCP Internal Medicine; Visit Provider Internal Medicine | DX: Z00.01 Encounter for general adult medical examination with abnormal findings (principal); F41.8 Other specified anxiety disorders; M85.852 Other specified disorders of bone density and structure, left thigh; F17.210 Nicotine dependence, cigarettes, uncomplicated; Z86.0101 Personal history of adenomatous and serrated colon polyps; Z79.899 Other long term (current) drug therapy; Z71.89 Other specified counseling | CPT/HCPCS: 96127 ==

== ENCOUNTER 2024-09-23 08:41 | Outpatient (REF) | payer OTHER, SELFPAY ==
[2024-09-23 10:07] LABS: MANUAL DIFF FLAG NO
[2024-09-23 10:09] LABS: Basophils Absolute Auto 0.1 X10*3/uL (0.0-0.2); Basophils Percent Auto 1.1 % (0-2); Eosinophils Absolute Auto 0.3 X10*3/uL (0.0-0.4); Eosinophils Percent Auto 6.1 % (0-4); Hematocrit 38.2 % (37.0-47.0); Hemoglobin 12.9 g/dl (12.0-16.0); Imm Gran Abs Auto 0.01 X10*3/uL (0.00-0.03); Imm Gran Pct Auto 0.2 % (0.0-0.4); Lymphocytes Absolute Auto 1.5 X10*3/uL (1.2-4.9); Lymphocytes Percent Auto 28.4 % (20-40); Mean Corpuscular HGB Conc 33.8 g/dl (31.0-35.0); Mean Corpuscular Hemoglobin 30.9 pg (27.0-33.0); Mean Corpuscular Volume 91.6 fL (80.0-98.0); Mean Platelet Volume 9.3 fL (9.4-12.3); Monocytes Absolute Auto 0.4 X10*3/uL (0.1-1.2); Monocytes Percent Auto 7.2 % (2-11); Neutrophils Absolute Auto 3.1 x10*3/uL (2.0-8.3); Platelet Count 198 X10*3/uL (160-400); Red Blood Count 4.17 X10*6/uL (4.20-5.50); Red Cell Distribution Width 13.5 % (11.0-16.0); White Blood Count 5.4 X10*3/uL (4.8-10.8)
[2024-09-23 10:57] LABS: Alanine Aminotransferase 17 U/L (0-31); Albumin Level 4.3 g/dL (3.5-5.0); Alkaline Phosphatase 91 U/L (39-117); Anion Gap 10 (12-20); Aspartate Amino Transferase 26 U/L (5-31); Bilirubin Total 0.7 mg/dL (0.0-1.0); Blood Urea Nitrogen 8 mg/dL (9-16); Calcium 9.9 mg/dL (8.4-10.2); Carbon Dioxide 30 mmol/L (22-29); Chloride 104 mmol/L (96-108); Cholesterol 225 mg/dL (<200); Estimated Glomerular Filt Rate > 60; Glucose Fasting 93 mg/dL (60-99); HDL Cholesterol 105 mg/dL (>40); LDL Cholesterol Calculated 105 mg/dL (<100); Potassium 3.9 mmol/L (3.3-5.1); Sodium 140 mmol/L (135-145); Total Protein 7.5 g/dL (6.5-8.0); Triglycerides 77 mg/dL (<150)
[2024-09-23 11:17] LABS: TSH reflex Free T4 2.22 uIU/mL (0.32-4.0); Vitamin D 25-OH Total 55.2 ng/mL (>30)
[2024-09-23 11:22] LABS: Folate 15.8 ng/mL (> or = 4.0); Vitamin B12 610 pg/mL (200-900)
== END 2024-09-23 08:42 | disposition home or self-care (01) ==
LOC: HO.HMGCLDS 08:41
PROVIDERS: PCP Internal Medicine; Visit Provider Internal Medicine
DX: R10.11 Right upper quadrant pain (principal); F41.8 Other specified anxiety disorders; D36.9 Benign neoplasm, unspecified site; M85.852 Other specified disorders of bone density and structure, left thigh; R53.83 Other fatigue; Z13.220 Encounter for screening for lipoid disorders; Z13.1 Encounter for screening for diabetes mellitus
CPT/HCPCS: 36415; 80053; 80061; 82306; 82607; 82746; 84443; 85025

== ENCOUNTER 2024-09-23 09:07 | Outpatient (AMB) | payer OTHER, SELFPAY ==
[2024-09-23 10:20] VITALS: BP 120/78; PULSE 80; O2SAT 97
--- NOTE | 2024-09-23 10:20 | MHC.OFFWIV ---
Intake Vital Signs 09/23/24 10:20 Weight 132 lb BP 120/78 Blood Pressure Location Lt brachial Position Sitting Pulse 80 Pulse Source Pulse Oximeter Pulse Oximetry (%) 97 Oxygen Delivery Method Room Air Intake Visit Reasons: EP Gallbladder pain Intake Note: Patient here for upper abdominal right quad that started about monday night. Patient Tobacco Use Status: Current everyday Tobacco user Allergies No Known Allergies [No Known Allergies*] Allergy (Verified 09/23/24 10:21) HPI HPI Comments History of Present Illness Details History of Present Illness The patient is a 64-year-old female presenting with abdominal pain. The symptoms commenced on 5 days ago with chest pain, prompting her to visit an urgent care facility. Due to concern of potential serious conditions, she was referred to the hospital where chest X-rays and blood work were conducted, resulting in normal findings. Subsequently, she developed abdominal pain 4 days ago, which has progressively worsened since then. The pain transitioned from her upper stomach to her right side. She has a history of a small hernia above her belly button repaired approximately 15 years ago. No further chest pain, nausea, vomiting, diarrhea, or fever has been reported. The patient mentioned dietary factors potentially aggravating the pain, particularly after consuming meals high in fat. The pain intensity has increased daily, affecting her significantly. She went back to that same urgent care facility yesterday, and they instructed her to ask her primary care doctor to order an ultrasound outpatient to assess hurt her gallbladder. Due to the current severity, she returned for further assessment. 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 Sister No problems noted. Daughter No problems noted. Social History Housing: House Are you a primary health care law specialist to a significant other at home: No Do you presently have visiting nurse or other home services: No Alcohol intake: current Alcohol intake frequency: holidays/special occasions only Patient Tobacco Use Status: Current everyday Tobacco user Tobacco use type: Cigarette Cigarette Packs Per Day: 0 Cigarettes Per Day: 5 Years Smoked: 30+ e-Cigarette/Vaping Use: Never Used service: No Current occupational status: employed Sexual orientation: Straight/Heterosexual Gender identity: Female Cognitive needs: No Hearing needs: No Vision needs: No Review of Systems Const All systems reviewed & are unremarkable except as noted in HPI and below Physical Exam Vital Signs: Last Vital Signs Pulse 80 09/23/24 10:20 BP 120/78 09/23/24 10:20 Pulse Ox 97 09/23/24 10:20 Oxygen Delivery Method Room Air 09/23/24 10:20 Const General: cooperative, healthy appearing, comfortable, no acute distress and well developed Orientation/consciousness: patient oriented x3 Limitations: no limitations HEENT Head: Yes normal to inspection Ears: hearing grossly normal bilaterally General nose exam: Normal external nose present Face and sinus: Yes normal facial exam Eyes General: appearance normal, both eyes and all related structures Neck Neck: Yes normal visual inspection and Yes full ROM Resp Effort & Inspection: normal respiratory effort and able to speak in complete sentences Auscultation: clear to auscultation bilaterally Cardio Rate: regular rate Rhythm: regular rhythm Heart sounds: normal S1 and S2 GI Inspection: Yes normal to inspection Palpation (GI): Soft to palpation and Tenderness to palpation present (GI) in the epigastrum, in the RUQ and Ashton's sign positive Auscultation: normal bowel sounds Skin General skin exam: no rashes or lesions noted Neuro General: patient oriented x3 Extrem General: Yes normal to inspection Assessment & Plan Assessment & Plan (1) RUQ abdominal pain: Code(s): R10.11 - Right upper quadrant pain Plan: Abdominal Pain and Possible Gallbladder Disease: - Patient refusing to go to the ED and is asking for her PCP to order an abdominal ultrasound to assess for gallstones or gallbladder disease. I have messaged her PCP, Dr. Hunter, for expedited diagnostic imaging and further management coordination, if possible, but reviewed ED would be fastest, most efficient way to manage this issue - Advise a low-fat diet to potentially minimize pain exacerbation. - Instruct the patient to seek emergency department evaluation if pain becomes worse or if symptoms such as fever develop. - Discuss potential outcomes such as the need for antibiotics vs surgical intervention depending on ultrasound findings, that she will need a surgical consult, again easier to faciliate in the ED. Patient was informed and verbally consented to the use of an ambient scribe for clinic note documentation during this visit. Coding Level of Care Code Est Pt Level 4 (34930) Diagnoses RUQ abdominal pain R10.11
== END 2024-09-23 10:53 | disposition home or self-care (01) ==
PROVIDERS: PCP Internal Medicine; Visit Provider Physician Assistant
DX: R10.11 Right upper quadrant pain (principal)

== ENCOUNTER 2024-09-27 09:49 | Outpatient (REF) | payer OTHER, SELFPAY ==
--- NOTE | ~2024-09-27 | US_ITS ---
EXAMINATION: US ABDOMEN COMPLETE CLINICAL INFORMATION: Right upper quadrant abdominal pain. Positive Ashton's sign.. COMPARISON: Abdominal ultrasound of 01/04/2021 TECHNIQUE: Real-time imaging of the abdominal viscera. FINDINGS: PANCREAS: The pancreatic duct in upper limits of normal for size measuring 0.3 cm in diameter. Small portions of the pancreatic head and distal pancreatic tail is obscured from visualization by overlying bowel gas, remainder of the pancreas is otherwise unremarkable. ABDOMINAL AORTA: The proximal, mid, and visualized distal segments are normal in caliber. Changes of atherosclerosis are noted in the wall of the aorta. INFERIOR VENA CAVA: Visualized portions are normal. LIVER: The liver is normal in size, contour and echogenicity. There is likely mild coarsening of the underlying parenchymal echotexture, recommend correlation with clinical history for underlying hepatocellular disease. No focal liver lesion is seen. No intrahepatic biliary ductal dilatation GALLBLADDER: The gallbladder is physiologically distended without evidence of stones, sludge, polyps, wall thickening or pericholecystic fluid. The patient was tender while scanning over the gallbladder. COMMON BILE DUCT: Upper limits of normal in caliber measuring 0.8 cm. No filling defect is noted in the visualized common bile duct. RIGHT KIDNEY: No hydronephrosis. No renal calculi or focal parenchymal lesions. The kidney measures 10.6 cm in maximum dimension. LEFT KIDNEY: No hydronephrosis. No renal calculi or focal parenchymal lesions. The kidney measures 11.2 cm in maximum dimension. SPLEEN: The spleen measures 8.6 cm in maximum dimension. FREE FLUID: None. US/US abdomen complete IMPRESSION: 1. No evidence of cholelithiasis or sonographic evidence of acute cholecystitis. The patient was tender while scanning over the gallbladder. Recommend clinical correlation and clinical follow-up as appropriate. 2. Common bile duct is upper limits of normal in caliber measuring 0.8 cm. No filling defect is noted in the visualized common bile duct. Previously 0.6 cm. 3. Pancreatic duct is upper limits of normal for size measuring 0.3 cm; the finding is not well seen on the previous study. 4. Mild coarsening of the hepatic parenchymal echotexture, recommend correlation with clinical history for underlying hepatocellular disease. RECOMMENDATIONS: Recommend clinical correlation and correlation with lab values. If clinically deemed necessary, correlation with MRI (without and with contrast) and MRCP will be helpful for further evaluation. Electronically signed by: Pita Pastor MD 09/28/2024 07:00 PM [facility] RP
--- OUTSIDE RECORDS SUMMARY | 2024-10-02 07:11 | XMS_ITS | Data Portability ---
Author Organization [facility], [address] Address [address] [place] [address] Care Team Providers Care Digital Media Sales Consultant Name Role Phone JONY MICHAEL Primary Care Provider Assessment No assessment recorded. Plan of Treatment Reminders Order Date Submit Date Provider Last Modified By Organization Details Last Modified Time Details Appointments None recorded. Lab None recorded. [facility]erral [facility] [address] [place], [address], 10:59:07 Procedures None recorded. Surgeries application of naif tape/splint , phalanx (toe) (SURG) 2022 023 [email or web address] Not available 3 08:47:35 Imaging XR, toe(s), 2 or more view - right 2022 023 [facility], [address] [place] [address], [place], [address], 3 09:43:39 Medication Orders None recorded. Patient TargetsNo targets recorded. Patient Instructions Encounter Date Encounter Id Patient Instructions Last Modified By Organization Details Last Modified Time 05/20/2023 [id number] broken toe: care instructions [email or web address] Not available 05/20/2023 09:27:42 Keep toe naif taped as instructed. Wear the cast shoe while walking. Elevate your foot as much as possible. Follow-up with your doctor in one week. Over the counter tylenol or ibuprofen may be taken for pain per package instructions as needed. See printed instructions. Seek Emergency Medical evaluation for any worsening symptoms. [email or web address] Not available 05/20/2023 09:27:41 Patient contacte d after official radiology report returned and orthopedic referral made to [facility] for her. [email or web address] Not available 05/20/2023 10:49:19 Reason for Referral Orthopedic Surgeon Referral for Closed fracture of proximal phalanx of great toe Displaced intra-articular fracture proximal phalanx right great toe Referring Physician: Carly Krueger, Urgent Care, Encounter Date: 05/20/2023 Results Created Date Observation Date Name Description Value Unit Range Abnormal Flag Note LastModifiedBy Organization Detail LastModifiedTime 05/20/20 23 05/20/2023 XR, toe(s ), 2 or more view No observ ation record ed. [email or web address] [facility] [address] [place], [address], 05/20/2023 10:49:56 Result Notes None recorded. Problems No Known Problems Procedures Surgical History Date Name Laterality Status Provider Name and Address Organization Details Recorded Time NAIF TAPE completed Carly Krueger MD [address] [place], [address], [place] - [facility] 05/20/2023 09:34:42 excision of breast completed Radha Britt PA - [facility] 05/20/2023 08:36:36 Imaging Results Imaging Date Name Status LastModified by Organiz ation Details LastModified Time 05/20/2023 XR, toe(s), 2 or more view completed [email or web address] [facility] [address] [place], [address], 05/20/2023 10:49:56 Procedure Notes None recorded. Medical Equipment None Reported. Allergies No known drug allergies Medications Name Sig Start Date Stop Date Status Note LastModified by Organization Details LastModified Time amoxicillin 500 mg capsule TAKE 1 CAPSULE BY MOUTH EVERY 8 HOURS FOR 7 DAYS 05/20 completed Not Available Not Available Not Available azithromyci n 250 mg tablet 05/20 completed Not Available Not Available Not Available bisacodyl 5 mg tablet,amna yed release TAKE 2 TABLET BY MOUTH ONCE DIRECTED PRIOR TO COLONOSCO PY 05/20 completed Not Available Not Available Not Available polyethylen e glycol 3350 17 gram/dose oral powder DRINK 238 GRAM ONCE BY MOUTH DIRECTED PRIOR TO COLONOSCO PY 05/20 completed Not Available Not Available Not Available chlorhexidi ne gluconate 0.12 % mouthwash RINSE AND SPIT 15ML BY MOUTH TWICE DAILY 05/20 completed Not Available Not Available Not Available diclofenac 1 % topical gel 05/20 completed Not Available Not Available Not Available Vitals Date Recorded Body height Body mass index (BMI) Body weight Oxygen saturation Oxygen saturation in Arterial blood by Pulse oximetry Heart rate Respiratory rate Body temperature Systolic blood pressure Diastolic blood pressure Provider Name and Address Organization Details Last Updated DateTime 170.18 cm 23.5 kg/m2 28047.8 6 g 98 % 98 % 81 /min 18 /min 96.3 [degF] 129 mm[Hg] 82 mm[Hg] Radha [employer] 08:35:25 Social History Question Answer Notes LastModified by Cortilia Details LastModified Time Tobacco Smoking Status Current Every Day Smoker [facility] [employer] 05/20/2023 08:35:07 What Is Your Level Of Alcohol Consumption? Occasional Socially Information not available 05/20/2023 Have You Had Direct Contact, Or Contact During Intimacy, With Monkeypox Rash, Scabs, Or Body Fluids From A Person With Monkeypox? No Information not available 05/20/2023 How Much Tobacco Do You Smoke? 1 PPW Information not available 05/20/2023 Do You Use Any Illicit Or Recreational Drugs? No Information not available 05/20/2023 Have You Recently Traveled Abroad? No Information not available 05/20/2023 Do You Or Have You Ever Used Any Other Forms Of Tobacco Or Nicotine? No Information not available 05/20/2023 Sex: Unknown Functional Status None recorded. Mental Status None recorded. Family History Relationship Description Onset Age of this Age Resolved Age Notes LastModified by Organization Details LastModified Time Father No current problems or disability Not available 05/20 08:34:51 Mother No current problems or disability Not available 05/20 08:34:51 Medical History No medical history recorded. Gynecological History Statement/Question Response Is there any chance of ? No LMP N/A Obstetrics History GPAL:G 0 P 0 0 0 0 Immunizations Vaccine Type Date Status Note Provider Nam e and Address Organization Details Recorded Time Influenza, split virus, quadrivalent, preservative 8 completed Radha Brussels null, [place] - [facility] 05/20/2023 08:34:25 Influenza, split virus, quadrivalent, preservative 6 completed Radha Brussels null, PA - [facility] 05/20/2023 08:34:25 Influenza, split virus, quadrivalent, preservative 9 completed Radha Balwinder null, PA - [facility] 05/20/2023 08:34:25 Influenza, MDCK, quadrivalent, PF 7 completed Radha Brussels null, PA - [facility] 05/20/2023 08:34:25 Tdap 8 completed Radha Brussels null, PA - [facility] 05/20/2023 08:34:25 Td (adult), 2 Lf tetanus toxoid, preservative free, adsorbed 6 completed Radha Balwinder null, PA - [facility] 05/20/2023 08:34:25 Td (adult), 2 Lf tetanus toxoid, preservative free, adsorbed 9 completed Radha Balwinder null, PA - [facility] 05/20/2023 08:34:25 Past Encounters Encounter ID Performer Location Encounter Start Date Encounter Closed Date Diagnosis/Indication Diagnosis SNOMED-CT Code Diagnosis ICD10 Code [id number] [address] [address] 06/10/2017 13:44:38 06/10/2017 15:04:[id number] [address] 10/15/2019 14:46:06 10/15/2019 15:21:06 [id number] [address] [facility] [place] [address] 12/23/2015 15:01:16 12/23/2015 15:33:51 [id number] [address] [facility] [place] [address] 09/26/2018 15:26:55 09/26/2018 16:30:37 [id number] [address] [facility] [place] [address] 12/10/2015 15:37:10 12/10/2015 16:04:06 [id number] Carly Krueger MD [address] [facility] [place] [address] 05/20/2023 08:29:54 05/20/2023 09:36:13 Contusion of right great toe 3422556728 1792066 S90.111A Closed fra cture of proximal phalanx of great toe 207176050 S92.414A Health Concerns Section Related Observation LastModified by Organization Detai ls LastModified Time None Recorded Concern Status LastModified by Organization Details LastModified Time None Recorded Advance Directives Directive None Recorded Payers Encounter Date Sequence Insurance Name Policy Number Policy Howard Covered Member ID Howard Member ID Guarantor Name 12/23/2015 1 [employer] [id number] Pratibha Burdick [id number] 1 Pratibha Burdick 06/10/2017 1 [employer] [id number] Pratibha Burdick [id number] 1 Pratibha Burdick 09/26/2018 1 [employer] [id number] Pratibha Burdick [id number] 1 Pratibha Burdick 10/15/2019 1 [employer] [id number] Pratibha Burdick [id number] 1 Pratibha Burdick 05/20/2023 1 [employer] [id number] Pratibha Burdick [id number] 1 Pratibha Burdick Notes Date Note Type Note Provider Name and Address Organization Details Recorded Time 3 text/html ToesReported bypatient.source of patient informationInformation obtained from patient; Patient arrived at Urgent Care ambulatory Location:right; Great toe, IP joint, proximal phalanx and MTP joint. Quality:aching; throbbing; constant Severity:moderate Duration:3 days Timing:acute Context:Kicked rubber edging with foot. Alleviating Factors:rest; elevation Aggravating Factors:standing; ROM; weightbearing Associated Symptoms:no weakness; no numbness; no tingling; no redness; no warmth; no ecchymosis; no catching/locking; no popping/clicking; no buckling; no grinding; no instability; no drainage; no fever; no chills;swelling; Limited flexion due to pain. Previous Surgery:none Previous Injections:none Previous PT:noneNotes:63 year old female presenting for evaluation of right great toe pain and swelling after kicking a piece of rubber lawn edging 3 days ago. No numbness or weakness of the extremities but has limited movement due to pain. The pain is worse with palpation and weight bearing as well. Carly Krueger MD [address] [place], [place] [address], [address], [place] - [facility] 05/20/2023 12:34:15 OBGyn Episode No OBEpisode recorded.
--- OUTSIDE RECORDS SUMMARY | 2024-10-02 07:11 | XMS_ITS | Continuity of Care Document ---
Author Organization [facility] Address [address] [place] [address] [address] [place] [address] Phone Care Team Providers Care Administrative Library Assistant Name Role Phone Geronimo Avalos MD, FACS, RVT Unavailable Unavailable Allergies, Adverse Reactions, Alerts Substance Reaction Status Criticality No Known Allergies Active No Inform ation Procedures Procedure Date Office/Outpt E&M Established 15 Mins Mar Office/Outpt E&M Established 15 Mins Nov Duplex Scan-extrem Veins; [facility]/ Advance Directives Directive Yes / No Effective Date File Name No Information Encounters Encounter Description Practice Location Reason(s) For Visit Diagnoses Date Provider Providers Copied on Encounter [facility], [address] [place] [address] [address], [id number], [place] tel:[phone] [facility] No Information [address] [facility] FACS DENISE Donaldson. [address] [facility] [address], [place], [address], [place]. tel:[phone] Referring Provider: Shoshana Hunter MD [facility], [address] [facility] [address] [facility], [place], [address]. tel:[phone] Office/Outpt E&M Established 15 Mins [facility], [address] [place] [address] [address], [id number], [place] tel:[phone] [facility] Pain in right lower leg [address] [facility]. [address] [address], [place], [address], [place]. tel:[phone] Referring Provider: Shoshana Hunter MD [facility], [address] [place] [address], [place], [address]. tel:[phone] Office/Outpt E&M Established 15 Mins [facility], [address] [place] [address] [address], [place], [id number], [place] tel:[phone] [facility] Body mass index (BMI) 23.0-23.9, adultVenous insufficiency (chronic) (peripheral) [address] [facility] [address], [place], [address], [place]. tel:[phone] Referring Provider: Shoshana Hunter MD [facility], [address] [place] [address], [place], [address]. tel:[phone] [facility], [address] [place] [address] [address], [place], [id number], [place] tel:[phone] [facility] Encntr for f/u exam aft trtmt for cond oth than malig neoplmVaricose veins of left lower extremities with pain [address] [facility] T [employer]. [address] [facility], [address] [facility], [place], [address], [place]. tel:[phone] Referring Provider: Amy Oconnor MD, [address] [place] [address], [address]. tel:[phone] Family History Family Member Type Diagnosis Age At Onset No Information Payers Payer name Insurance type Covered democrat ID Authoriza tiloretta(s) Pasha CI [id number] Social History Type Description Quantity Date Captured Comments Sex Female Smoking Status No Information Chief Complaint And Reason For Visit No Information Reason For Referral Reason For Referral No Information Plan Of Treatment Date Type Action Status Goal Tobacco cessation counseling completed Goal Diet education completed Goal Tobacco cessation counseling completed History Of Present Illness Encounter Date Complaint History Of Prese nt Illness No Information Functional Status Date Functional Assessmen t No Information Instructions Date Instruction Additional Infor martín Patient education booklet given Related to Pain In LOWER LEG; RIGHT (Below Knee) Giving Encouragement to Exercise Related to Body mass index [BMI] 23.0-23.9, adult Diet education Related to Body mass index [BMI] 23.0-23.9, adult Patient education booklet given Related to Venous Insufficiency (Chronic / Peripheral) Assessments Type Assessment Date No Information Patient Care Teams Name Effective Dates (start - stop) Status Members No Information
== END 2024-09-27 09:50 | disposition home or self-care (01) ==
LOC: HO.HMGCX 09:49
PROVIDERS: PCP Internal Medicine; Visit Provider Internal Medicine
DX: R19.8 Other specified symptoms and signs involving the digestive system and abdomen (principal)
CPT/HCPCS: 76700

== ENCOUNTER 2024-10-17 12:47 | Outpatient (AMB) | payer OTHER, SELFPAY ==
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
[2024-10-17 13:13] VITALS: BP 124/64; PULSE 82; O2SAT 100
== END 2024-10-17 15:58 | disposition home or self-care (01) ==
PROVIDERS: PCP Internal Medicine; Visit Provider Internal Medicine
DX: F41.8 Other specified anxiety disorders (principal); F17.210 Nicotine dependence, cigarettes, uncomplicated; Z28.21 Immunization not carried out because of patient refusal

== ENCOUNTER → 2024-10-17 12:47 | Outpatient (BNVA) | payer OTHER, SELFPAY | PROVIDERS: PCP Internal Medicine; Visit Provider Internal Medicine | DX: F41.8 Other specified anxiety disorders (principal); F17.210 Nicotine dependence, cigarettes, uncomplicated; Z79.899 Other long term (current) drug therapy; Z28.21 Immunization not carried out because of patient refusal | CPT/HCPCS: 96127 ==

== ENCOUNTER 2024-10-18 10:59 | Outpatient (REF) | payer OTHER, SELFPAY ==
--- NOTE | ~2024-10-18 | MM_ITS ---
EXAMINATION: BONE DENSITOMETRY CLINICAL INDICATION: Other specified disorders of bone, left thigh. COMPARISON: Previous BD dated 11/06/2019 and baseline BD dated 11/25/2011. TECHNIQUE: Using a Signifyd DXA System (software version: 13.1) manufactured by [employer], dual-energy x-ray absorptiometry was performed of the lumbar spine and left hip. The images are of good technical quality. Summary results are attached. FINDINGS: LEFT FEMUR, NECK: Current: BMD 0.928 g/cm2, Z-score 0.7, T-score -0.8, normal. Prior: BMD 0.830 g/cm2. Baseline: BMD 1.028 g/cm2. LEFT FEMUR, TOTAL: Current: BMD 0.783 g/cm2, Z-score -0.6, T-score -1.8, osteopenia, 3.0% increase from previous, 11.4% decrease from baseline (<5% change is not significant). Prior: BMD 0.760 g/cm2. Baseline: BMD 0.884 g/cm2. AP SPINE L1-L4: Current: BMD 1.335 g/cm2, Z-score 2.9, T-score 1.3, normal, 9.5% increase from previous, 6.8% decrease from baseline (<5% change is not significant). Prior: BMD 1.219 g/cm2. Baseline: BMD 1.433 g/cm2. IDENTIFIED RISK FACTORS: Family history (parent hip fracture), history of fracture (adult), menopause, osteoporosis, tobacco user (current smoker). HISTORY OF FRACTURE: Other. MEDICATIONS: Calcium, multivitamin, vitamin D. MM/XR DEXA axial skeleton IMPRESSION: 1. DIAGNOSIS: Osteopenia based on the lowest T-score value of -1.8 in the total femur applying World Health Organization criteria. 2. 10-YEAR FRACTURE RISK PREDICTION, FRAX: Major osteoporotic fracture (clinical spine, forearm, hip or shoulder) 22.4%. Hip fracture 1.5%. 3. Treatment Recommendations: NOF guidelines recommend consideration for treatment in postmenopausal women and men age 50 and older presenting with the following: -A hip or vertebral (clinical or morphometric) fracture. -T-score less than or equal to -2.5 at the femoral neck or spine after appropriate evaluation to exclude secondary causes. -Low bone mass at the hip or spine and a 10-year fracture probability by FRAX of greater than or equal to 3% for hip fracture or greater than or equal to 20% for major osteoporotic fracture based on the [place] adapted WHO algorithm. 4. Other Recommendations: All treatment decisions require clinical judgment and consideration of individual patient factors, including patient preferences, comorbidities, previous drug use, risk factors not captured in the FRAX model (e.g. frailty, falls, vitamin D deficiency, increased bone turnover, interval significant decline in bone density) and possible under or overestimation of fracture risk by FRAX. Additional medical evaluation for secondary cause of low bone mineral density may be appropriate. FUTURE SCAN RECOMMENDATION: People with diagnosed cases of osteoporosis or at high risk for fracture should have regular bone mineral density tests. For patients eligible for Medicare, routine testing is allowed once every 2 years. The testing frequency can be increased to one year for patients who have rapidly progressing disease, those who are receiving or discontinuing medical therapy to restore bone mass, or have additional risk factors. Electronically signed by: Narcisa Pa MD 10/18/2024 02:37 PM [facility]
== END 2024-10-18 11:00 | disposition home or self-care (01) ==
LOC: HO.MAMMO 10:59
PROVIDERS: PCP Internal Medicine; Visit Provider Internal Medicine
DX: Z13.820 Encounter for screening for osteoporosis (principal); M85.852 Other specified disorders of bone density and structure, left thigh
CPT/HCPCS: 77080

== ENCOUNTER 2024-11-08 09:45 | Outpatient (AMB) | payer OTHER, SELFPAY ==
--- NOTE | 2024-11-08 07:59 | A.OFFVIS_ITS ---
Intake Visit Reasons: Current Smoker Allergies No Known Allergies [No Known Allergies*] Allergy (Verified 10/17/24 13:31) HPI HPI Current Smoker: Details: Initial visit for this 64yo smoker with a 25PYH. Patient started smoking at age 13 for 51 years at 1/2ppd. Currently down to 2cig/day on buproprion. Using Vape. . Denies marijuana use. Denies second hand smoke exposure. Denies exposure to chemicals or substances like asbestos. . Denies known family history of lung cancer. Reports personal history of Right Breast cancer - s/p mastectomy No chemo or radiation. Denies chest CT in last year. . Denies recent travel outside the [place]. Denies recent respiratory illness or recent hospitalization for respiratory issues. Reports hx testing positive for COVID. Denies receiving COVID Vaccine. . Denies fever, chills, new/worsening cough, hemoptysis, hoarseness or dysphagia. Denies significant chest pain, significant dyspnea or unintentional weight loss. Patient Lung Cancer Screening Questionnaire reviewed with patient by provider. . Shared Decision Making Completed. Patient meets criteria. Discussed in detail with patient, the risk vs benefit of LDCT screening. Patient consents to proceed with scan. Discussed smoking cessation. [facility] Medical History (Updated 11/08/24 @ 10:10 by Elvia Son PA-C) History of ductal carcinoma in situ (DCIS) of breast (~2015) Hepatitis C Tubular adenoma of colon (~2021) Osteopenia of left femoral neck (~2015) Nicotine dependence, cigarettes, uncomplicated Depression with anxiety History of varicose veins Spondylosis of lumbar region without myelopathy or radiculopathy History of COVID-19 Vaccination refused by patient Surgical History (Updated 11/08/24 @ 10:03 by Elvia Son PA-C) History of colonoscopy History of esophagogastroduodenoscopy (EGD) History of right mastectomy History of right breast biopsy History of endometrial ablation History of tubal ligation Family History (Updated 11/08/24 @ 10:05 by Elvia Son PA-C) Father CAD (coronary artery disease) Mother Medical history non-contributory Brother No problems noted. Sister No problems noted. Daughter No problems noted. Social History (Updated 11/08/24 @ 10:06 by Elvia Son PA-C) Housing: House Are you a primary critical care educator to a significant other at home: No Do you presently have visiting nurse or other home services: No Alcohol intake: current Alcohol intake frequency: holidays/special occasions only Patient Tobacco Use Status: Current everyday Tobacco user Tobacco use type: Cigarette Cigarette Packs Per Day: 0 Cigarettes Per Day: 2 Years Smoked: (onset 13yo, 1/2ppd x 51yrs, now 2cig/day - 25pyh) e-Cigarette/Vaping Use: Never Used service: No Current occupational status: employed Sexual orientation: Straight/Heterosexual Gender identity: Female Cognitive needs: No Hearing needs: No Vision needs: No Assessment & Plan Assessment & Plan (1) Nicotine dependence, cigarettes, uncomplicated: Comment: (onset 13yo, 1/2ppd x 51yrs, now 2cig/day - 25pyh) Code(s): F17.210 - Nicotine dependence, cigarettes, uncomplicated Category: Medical Plan: - SDM visit completed today in office. - Patient meets criteria for LDCT for lung cancer screening purposes and is asymptomatic. - Smoking cessation counseling offered. Patients can always call [phone]. - Will arrange for a LDCT scan of the chest for screening purposes at [facility]. - Risks, benefits, and alternatives were discussed in detail and the patient agrees to proceed. - Risks discussed include but are not limited to: radiation exposure, anxiety during testing and while awaiting results, false negatives, false positives and possibility of additional intervention such as further imaging or surgical procedures for benign disease. - Benefits are obviously detection of lung cancer at an early stage which can lead to improved outcomes. - Discussed the importance of screening program compliance with adherence to yearly LDCT scan as scheduled - or sooner interval scans for personalized screening regimen. - Discussed follow up plan. Our office will send a letter discussing results and if needed set up phone call and office visit based on CT findings. - Patient educated on results categorization and the management decisions for suspicious findings potentially found on the screening LDCT scan. Any patient with a Lung RADS score of 3 or 4 will be reviewed by a multidisciplinary team at [facility] to form a plan of action in regards to scan findings. - If further work up is warranted for a suspicious lung finding this will be followed by the Lung Cancer Screening program in conjunction with the Thoracic Surgery Department at [facility]. - A copy of the office note and LDCT will be sent to the patient's PCP - as well as documentation on any associated further plans of care. - Incidental findings on LDCT are the PCP's responsibility. These findings are indicated with an S finding on the LDCT Assessment. A note discussing the findings will be sent to the PCP who is then responsible for further management. - All questions answered.? Coding Level of Care Code Lung Cancer Screening G0296 Diagnoses Nicotine dependence, cigarettes, uncomplicated F17.210
--- OUTSIDE RECORDS SUMMARY | 2024-11-08 10:59 | XMS_ITS | Continuity of Care Document ---
Author Organization [facility] Address [address] [place] [address] [address] [place] [id number] Phone Care Team Providers Care Reinsurance Analyst Name Role Phone Geronimo Avalos MD, FACS, RVT Unavailable Unavailable Allergies, Adverse Reactions, Alerts Substance Reaction Status Criticality No Known Allergies Active No Inform ation Procedures Procedure Date Office/Outpt E&M Established 15 Mins Mar Office/Outpt E&M Established 15 Mins Nov Duplex Scan-extrem Veins; [facility]/ Advance Directives Directive Yes / No Effective Date File Name No Information Encounters Encounter Description Practice Location Reason(s) For Visit Diagnoses Date Provider Providers Copied on Encounter [facility], [address] [place] [address] [address], [id number], [place] tel:[phone] [facility] No Information [address] MESA FACS DENISE Donaldson. [address] [facility] [address], [place], [address], [place]. tel:[phone] Referring Provider: Shoshana Hunter MD [facility], [address] [facility] [address] [facility], [place], [address]. tel:[phone] Office/Outpt E&M Established 15 Mins [facility], [address] [place] [address] [address], [id number], [place] tel:[phone] [facility] Pain in right lower leg [address] [facility] adjust. [address] [address], [place], [address], [place]. tel:[phone] Referring Provider: Shoshana Hunter MD [facility], [address] [place] [address], [place], [address]. tel:[phone] Office/Outpt E&M Established 15 Mins [facility], [address] [place] [address] [address], [place], [id number], [place] tel:[phone] [facility] Body mass index (BMI) 23.0-23.9, adultVenous insufficiency (chronic) (peripheral) [address] [facility] [address], [place], [address], [place]. tel:[phone] Referring Provider: Shoshana Hunter MD [facility], [address] [place] [address], [place], [address]. tel:[phone] [facility], [address] [place] [address] [address], [place], [id number], [place] tel:[phone] [facility] Encntr for f/u exam aft trtmt for cond oth than malig neoplmVaricose veins of left lower extremities with pain [address] MESA FACS T [employer]. [address] [facility], [address] [facility], [place], [address], [place]. tel:[phone] Referring Provider: Amy Oconnor MD, [address] [place] [address], [address]. tel:[phone] Family History Family Member Type Diagnosis Age At Onset No Information Payers Payer name Insurance type Covered libertarian ID Authoriza tiloretta(s) Pasha CI [id number] Social History Type Description Quantity Date Captured [...]
== END 2024-11-08 11:06 | disposition home or self-care (01) ==
PROVIDERS: PCP Internal Medicine; Visit Provider Physician Assistant Medical
DX: F17.210 Nicotine dependence, cigarettes, uncomplicated (principal)
CPT/HCPCS: G0296

== ENCOUNTER 2024-11-08 09:59 | Outpatient (REF) | payer OTHER, SELFPAY ==
--- OUTSIDE RECORDS SUMMARY | 2024-11-08 11:29 | XMS_ITS | Continuity of Care Document ---
Author Organization [facility] Address [address] [place] [address] Dr [address] [place] [phone] Phone Care Team Providers Care Cable Spooler Name Role Phone Geronimo Avalos MD, FACS, RVT Unavailable Unavailable Allergies, Adverse Reactions, Alerts Substance Reaction Status Criticality No Known Allergies Active No Inform ation Procedures Procedure Date Office/Outpt E&M Established 15 Mins Mar Office/Outpt E&M Established 15 Mins Nov Duplex Scan-extrem Veins; [facility]/ Advance Directives Directive Yes / No Effective Date File Name No Information Encounters Encounter Description Practice Location Reason(s) For Visit Diagnoses Date Provider Providers Copied on Encounter [facility], [address] [place] [address] [address]Jairon [place], [id number], [place] tel:[phone] [facility] No Information 3 Rock MESA FACS DENISE Donaldson. [address] [facility] [address], [place], [address], [place]. tel:[phone] Referring Provider: Shoshana Hunter MD Rock, [address] [facility] [address] [facility], [place], [address]. tel:[phone] Office/Outpt E&M Established 15 Mins [facility], [address] [place] [address] Dr Olinda [address]Jairon [place], [id number], [place] tel:[phone] [facility] Pain in right lower leg 3 [address] [facility] [employer]. [address] [address], [place], [address], [place]. tel:[phone] Referring Provider: Shoshana Hunter MD Rock, [address] [place] [address], [place], [address]. tel:[phone] Office/Outpt E&M Established 15 Mins [facility], [address] [place] [address] [address], [place], [id number], [place] tel:[phone] [facility] Body mass index (BMI) 23.0-23.9, adultVenous insufficiency (chronic) (peripheral) 3 [address] [facility] [address], [place], [address], [place]. tel:[phone] Referring Provider: Shoshana Hunter MD Rock, [address] [place] [address], [place], [address]. tel:[phone] [facility], [address] [place] [address] [address], [place], [id number], [place] tel:[phone] [facility] Encntr for f/u exam aft trtmt for cond oth than malig neoplmVaricose veins of left lower extremities with pain 2 Rock MESA FACS T [employer]. [address] [facility], Suite [facility], [place], [address], [place]. tel:[phone] Referring Provider: Amy Oconnor MD, [address] [place] [address], [address]. tel:[phone] Family History Family Member Type Diagnosis Age At Onset No Information Payers Payer name Insurance type Covered green party ID Authoriza tiloretta(s) Pasha CI [id number] Social History Type Description Quantity Date Captured [...]
== END 2024-11-08 10:00 | disposition home or self-care (01) ==
LOC: HO.CT 09:59
PROVIDERS: PCP Internal Medicine; Visit Provider Physician Assistant Medical
DX: F17.210 Nicotine dependence, cigarettes, uncomplicated (principal)
CPT/HCPCS: G0296

== ENCOUNTER 2024-11-15 11:08 | Outpatient (AMB) | payer OTHER, SELFPAY ==
--- NOTE | 2024-11-15 11:05 | A.OFFPC_ITS ---
Intake Visit Reasons: discuss paperwork Allergies No Known Allergies [No Known Allergies*] Allergy (Verified 11/16/24 04:00) Medication List - Last Reconciled 11/15/24 by Shoshana Hunter MD ascorbate calcium (vitamin C) 500 mg PO DAILY bupropion HCl SR 100 mg PO QAM bupropion HCl SR mg PO DAILY calcium carbonate (Calcium 500) 500 mg PO DAILY cholecalciferol (vitamin D3) 25 mcg PO DAILY diclofenac sodium 1% (Arthritis Pain (diclofenac)) 2 grams topical QID multivitamin 1 tab PO DAILY Tobacco use date assessed: 11/15/24 Fall risk assessment: No Falls in past year Last assessed Fall Risk: 11/15/24 Dental Screening Dental Screen Date: 11/15/24 Did you have a dental visit in the last 12 months?: No Did you have a dental problem in the last 6 months where you did not have access to dental care?: No Was dental information given to patient?: No HPI discuss paperwork HPI Details 64-year-old lady with known history of d epression with anxiety, currently on bupropion, followed by Psychiatry and therapist, here today requesting a request for work accommodation to be completed. Patient has severe claustrophobia, unable to working tight spaces. She was recently assigned to work at [employer] , but patient unable to concentrate and developed severe anxiety/panic attacks due to being in a tight and enclosed workspace. Other than that, she is able to do her work without any limitations [facility] Medical History (Updated 11/15/24 @ 11:26 by Shoshana Hunter MD) Claustrophobia History of ductal carcinoma in situ (DCIS) of breast (~2015) Hepatitis C Tubular adenoma of colon (~2021) Osteopenia of left femoral neck (~2015) Nicotine dependence, cigarettes, uncomplicated Depression with anxiety History of varicose veins Spondylosis of lumbar region without myelopathy or radiculopathy History of COVID-19 Vaccination refused by patient Surgical History History of colonoscopy History of esophagogastroduodenoscopy (EGD) History of right mastectomy History of right breast biopsy History of endometrial ablation History of tubal ligation Family History Father CAD (coronary artery disease) Mother Medical history non-contributory Brother No problems noted. Sister No problems noted. Daughter No problems noted. Social History Housing: House Are you a primary care transport nurse to a significant other at home: No Do you presently have visiting nurse or other home services: No Alcohol intake: current Alcohol intake frequency: holidays/special occasions only Patient Tobacco Use Status: Current someday Tobacco user Tobacco use type: Cigarette Cigarette Packs Per Day: 0 Cigarettes Per Day: 2 Years Smoked: (onset 13yo, 1/2ppd x 51yrs, now 2cig/day - 25pyh) Packs Per Year: 0 Packs per year/per ci.00 e-Cigarette/Vaping Use: Never Used service: No Current occupational status: employed Sexual orientation: Straight/Heterosexual Gender identity: Female Cognitive needs: No Hearing needs: No Vision needs: No Questionnaire PHQ-9 Over the last 2 weeks, how often have you been bothered by any of the following problems? 1. Little interest or pleasure in doing things: not at all 2. Feeling down, depressed, or hopeless: not at all 3. Trouble falling or staying asleep, or sleeping too much: not at all 4. Feeling tired or having little energy: not at all 5. Poor appetite or overeating: not at all 6. Feeling bad about yourself - or that you are a failure or have let yourself or your family down: not at all 7. Trouble concentrating on things, such as reading the newspaper or watching television: not at all 8. Moving or speaking so slowly that other people could have noticed. Or the opposite - being so fidgety or restless that you have been moving around a lot more than usual: not at all 9. Thoughts that you would be better off or of hurting yourself in some way: not at all Total score: 0 Depression Screening Interpretation: Negative Depression Screening Done: Yes 29748 - PHQ-9 Billing: Yes Source: Developed by Drs. Piyush Crandall, Melania Cunningham, Aleksander Lira and colleagues, with an educational claudio from [employer]. Thrive Questionnaire Date Thrive assessed: 11/15/24 I am a: Patient What is your living situation today?: I have a steady place to live Within the past 12 months, did the food you bought not last and you didn't have the money to get more?: Never true Within the past 12 months, did you worry whether your food would run out before you got money to buy more?: Never true Do you have trouble paying for medicines?: No Do you have trouble getting transportation to medical appointments?: No Do you have trouble paying your heating and electricity bill?: No Do you have trouble taking care of your child, family member or friend?: No Do you have trouble with day-to-day activities such as bathing, preparing meals, shopping, managing finances, etc.?: No Are you currently unemployed and looking for a job?: No Are you interested in more education?: No THRIVE Score: 0 AUDIT C Alcohol Use Questionnaire (AUDIT-C) 1. How often do you have a drink containing alcohol?: Never Total Score: 0 CITLALLI-7 AMB Questionnaire CITLALLI-7 Date CITLALLI - 7 assessed: 11/15/24 Feeling nervous, anxious, or on edge: 1 = Several days Not being able to stop or control worryin = Several days Worrying too much about different things: 1 = Several days (Depending on the circumstance) Trouble relaxin = Not at all Being so restless that it is hard to sit still: 0 = Not at all Becoming easily annoyed or irritable: 0 = Not at all Feeling afraid as if something awful might happen: 0 = Not at all Total CITLALLI-7 score (0-4 normal; 5-9 mild; 10-14 moderate; 15-21 severe): 3 Source: Developed by Drs. Piyush Crandall, Melania Cnuningham, Aleksander Lira and colleagues, with an educational claudio from [employer]. CITLALLI-7 Assessment Billing CITLALLI-7 Assessment Tool: CITLALLI-7 Assessment 95023 Review of Systems Const All systems reviewed & are unremarkable except as noted in HPI and below ENT Reports no additional complaints Card Denies chest pain, Denies rapid heart rate and Denies irregular heart rhythm Resp Reports no additional complaints GI Reports no additional complaints Psych Reports as per HPI Physical exam (Primary Care) Tobacco/Smoking Status: Tobacco use Status Tobacco use date assessed 11/15/24 11/15/24 11:07 Patient Tobacco Use Status Current someday Tobacco 11/15/24 11:07 Tobacco use type Cigarette 11/15/24 11:07 e-Cigarette/Vaping Use Never Used 11/15/24 11:07 PHQ-9: PHQ-9 Score PHQ-9: Total score 0 11/15/24 11:26 Depression Screening Interpretation: Negative Thrive Assessment: Date of Thrive Assessment Date Thrive assessed 11/15/24 11/15/24 11:07 Telehealth Telehealth Telehealth Platform: [facility] Location of provider rendering services: practice address Location of patient: address on file Patient Identification confirmed using: Name, : Yes Telehealth method: video Patient verbally consented to treatment: Yes Patient verbally consented to billing insurance company: Yes Minutes spent on Phone/Video with Pt.: 15 Coding Level of Care Code Tele Est Pt Level 3 (60483) Diagnoses Depression with anxiety F41.8 Claustrophobia F40.240 Additional Codes PHQ-9 - 89856 - PHQ-9 Billing: Yes ([id number]) CITLALLI-7 Assessment Billing - CITLALLI-7 Assessment Tool: CITLALLI-7 Assessment 22097 ([id number]) Assessment & Plan Assessment & Plan (1) Depression with anxiety: Code(s): F41.8 - Other specified anxiety disorders Category: Medical (2) Claustrophobia: Code(s): F40.240 - Claustrophobia Category: Medical Plan Patient with depression anxiety currently on bupropion, with severe claustrophobia. She is currently under the care of a psychiatrist. She is unable to keep her focus and developed severe panic attacks when in close in tight confined spaces. Recommendation to avoid placing patient in a tight in closed/confined the workspace. Completed a request for work accommodation, advise patient to pick the completed application .
--- OUTSIDE RECORDS SUMMARY | 2024-11-15 13:16 | XMS_ITS | Clinical Summary ---
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 04/19/2007 DX:Tube rculin test reaction Neck pain 09/16/2009 DX:Neck pain Other syndromes affecting ce rvical region 02/18/2010 DX:Other syndromes affecting cervical region Family History Medical History Relation Name Comments Other: alive and well Father Other: cerebral aneurysm Maternal Grandmother Other: alive and well Mother Relation Name Status Comments Father Maternal Grandmother Mother Social History Tobacco Use Types Packs/Day Years Used Date Smoking Tobacco: Every Day Cigarettes Alcohol Use Standard Drinks/Week Comments Yes 0 (1 standard drink = 0.6 oz pur e alcohol) Sex and Gender Information Value Date Recorded Sex Assigned at Not on file Gender Identity Not on file Sexual Orientation Not on file Obstetrics History Plan of Treatment Health Maintenance Due Date Last Done Comments Breast Cancer Screening 1959 DTaP,Tdap,and Td Vaccines (1 - Tdap) 1978 Cervical Cancer Screening: P ap Smear 1980 Zoster Vaccines (1 of 2) 2009 Pneumococcal Vaccine: 65+ Ye ars (1 of 1 - PCV) 2024 COVID-19 Vaccine ( - 2023-2 5 season) 2024 Influenza Vaccine (#1) 2024 RSV Immunization Patients 60 + Years Old (1 - 1-dose 75+ series) 2034 HIB Vaccines Aged Out No longer eligi ble based on patient's age to complete this topic HPV Vaccines Aged Out No longer eligi ble based on patient's age to complete this topic Hepatitis A Vaccines Aged Out No long er eligible based on patient's age to complete this topic Hepatitis B Vaccines Aged Out No long er eligible based on patient's age to complete this topic IPV Vaccines Aged Out No longer eligi ble based on patient's age to complete this topic MMR Vaccines Aged Out No longer eligi ble based on patient's age to complete this topic Meningococcal ACWY Vaccine Aged Out N o longer eligible based on patient's age to complete this topic Pneumococcal Vaccine: Pediat rics (0 to 5 Years) and At-Risk Patients (6 to 64 Years) Aged Out No longer eligible b ased on patient's age to complete this topic RSV Immunization Patients Un cecy 20 months Aged Out No longer eligible b ased on patient's age to complete this topic Varicella Vaccines Aged Out No longer eligible based on patient's age to complete this topic Care Teams Mobile Manager Relationship Specialty Start Date End Date Shoshana Hunter MD [address] [place] [address] PCP - General Internal Medicine 01/14/21
--- OUTSIDE RECORDS SUMMARY | 2024-11-15 13:16 | XMS_ITS | Data Portability ---
Author Organization [facility], [address] Address [address] [place] [address] Care Team Providers Care Project Developer Name Role Phone JONY MICHAEL Primary Care Provider [phone] Assessment No assessment recorded. Plan of Treatment Reminders Order Date Submit Date Provider Last Modified By Organization Details Last Modified Time Details Appointments None recorded . Lab None recorded . Referral orthoped ic surgeon [email or web address] [address] [facility] [place], [address], 3 10:59:07 Procedures None recorded . Surgeries applicat ion of naif tape/spl int, phalanx (toe) (SURG) 2022 023 [email or web address] Not available 3 08:47:35 Imaging XR, toe(s), 2 or more view - right 2022 023 [facility], [address] [place] [address], [address], 3 09:43:39 Medication Orders None recorded . Patient TargetsNo targets recorded. Patient Instructions Encounter Date Encounter Id Patient Instructions Last Modified By Organization Details Last Modified Time 05/20/2023 [id number] broken toe: care instructions [email or web address] Not available 05/20/2023 09:27:42 Keep toe naif taped as instructed. Wear the cast shoe while walking. Elevate your foot as much as possible. Follow-up with your doctor in one week. Over the counter tylenol or ibuprofen may be taken for pain per package instructions as needed. See printed instructions. Seek Emergency Medical evaluation for any worsening symptoms. [email or web address] Not available 05/20/2023 09:27:41 Patient contacte d after official radiology report returned and orthopedic referral made to [facility] for her. [email or web address] Not available 05/20/2023 10:49:19 Reason for Referral Orthopedic Surgeon Referral for Closed fracture of proximal phalanx of great toe Displaced intra-articular fracture proximal phalanx right great toe Referring Physician: Carly Krueger, Urgent Care, Encounter Date: 05/20/2023 Results Created Date Observation Date Name Description Value Unit Range Abnormal Flag Note LastModifiedBy Organization Detail LastModifiedTime 05/20/2005/20/2023 XR, toe(s ), 2 or more view No observ ation record ed. [facility] [address] [place], [address], 05/20/2023 10:49:56 Result Notes None recorded. Problems No Known Problems Procedures Surgical History Date Name Laterality Status Provider Name and Address Organization Details Recorded Time NAIF TAPE completed Carly Krueger MD [address] [place], [address], [place] - [facility] 05/20/2023 09:34:42 excision of breast completed Radha Britt PA - [facility] 05/20/2023 08:36:36 Imaging Results Imaging Date Name Status LastModified by Organiz ation Details LastModified Time 05/20/2023 XR, toe(s), 2 or more view completed [email or web address] [facility] [address] [place], [address], 05/20/2023 10:49:56 Procedure Notes None recorded. Medical [...] Not Available Vitals Date Recorded Body height Provider Name an d Address Organization Details Last Updated DateTime 05/20/2023 170.18 cm Radha Balwinder PA - [facility] 0 05/20/2023 08:34:20 Date Recorded Body mass index (BMI) Provider Name and Address Organization Details Last Updated DateTime 05/20/2023 23.5 kg/m2 Radha Balwinder PA - [facility] 0 05/20/2023 08:34:21 Date Recorded Body weight Provider Name an d Address Organization Details Last Updated DateTime 05/20/2023 93053.86 g Radha Hunker PA - [facility] 0 05/20/2023 08:34:22 Date Recorded Oxygen saturation Oxygen saturation in Arterial blood by Pulse oximetry Provider Name and Address Organization Details Last Updated DateTime 05/20/2023 98 % 98 % Radha Hunker PA - [facility] 05/20/2023 08:35:42 Date Recorded Heart rate Provider Name an d Address Organization Details Last Updated DateTime 05/20/2023 81 /min Radha Balwinder PA - [facility] 0 05/20/2023 08:35:45 Date Recorded Respiratory rate Provider Name a nd Address Organization Details Last Updated DateTime 05/20/2023 18 /min Radha Hunker PA - [facility] 0 05/20/2023 08:35:46 Date Recorded Pain severity - 0-10 verbal numeric rating [Score] - Reported Provider Name and Address Organization Details Last Updated DateTime 05/20/2023 5 Radha Balwinder PA - [facility] 0 05/20/2023 08:35:49 Date Recorded Body temperature Provider Name a nd Address Organization Details Last Updated DateTime 05/20/2023 96.3 [degF] Radha Britt PA - [facility] 05/20/2023 08:36:01 Date Recorded Systolic blood pressure Diastolic blood pressure Provider Name and Address Organization Details Last Updated DateTime 05/20/2023 129 mm[Hg] 82 mm[Hg] Radha Britt PA - [facility] 05/20/2023 08:35:25 Social History Question Answer Notes LastModified by Organizat ion Details LastModified Time Tobacco Smoking Status Current Every Day Smoker Radha corrigan PA - [facility] 05/20/2023 08:35:07 What Is Your Level Of [...] split virus, quadrivalent, preservative 8 completed Radha corrigan PA - [facility] 05/20/2023 08:34:25 Influenza, split virus, quadrivalent, preservative 6 completed Radha Hunker null, PA - [facility] 05/20/2023 08:34:25 Influenza, split virus, quadrivalent, preservative 9 completed Radha Hunker null, PA - [facility] 05/20/2023 08:34:25 Influenza, MDCK, quadrivalent, PF 7 completed Radha Balwinder null, PA - [facility] 05/20/2023 08:34:25 Tdap 8 completed Radha Balwinder null, PA - [facility] 05/20/2023 08:34:25 Td (adult), 2 Lf tetanus toxoid, preservative free, adsorbed 6 completed Radha Balwinder null, PA - [facility] 05/20/2023 08:34:25 Td (adult), 2 Lf tetanus toxoid, preservative free, adsorbed 9 completed Radha Hunker null, PA - [facility] 05/20/2023 08:34:25 Past Encounters Encounter ID Performer Location Encounter Start Date Encounter Closed Date Diagnosis/Indication Diagnosis SNOMED-CT Code Diagnosis ICD10 Code Diagnosis Note [id number] [address] [place] [address] 06/10/2017 13:44:38 06/10/2017 15:04:45 [id number] [address] [place] [address] 10/15/2019 14:46:06 10/15/2019 15:21:06 [id number] [address] [place] [address] 12/23/2015 15:01:16 12/23/2015 15:33:51 [id number] [address] [place] [address] 09/26/2018 15:26:55 09/26/2018 16:30:37 [id number] [address] [facility] [address] [place] [address] 12/10/2015 15:37:10 12/10/2015 16:04:06 [id number] Carly Krueger MD [address] [place] [address] 05/20/2023 08:29:54 05/20/2023 09:36:13 Contusion of right great toe [id number] 8609185 S90.111A Closed fra cture of proximal phalanx of great toe 948325118 S92.414A Health Concerns Section Related Observation LastModified by Organization Detai ls LastModified Time None Recorded Concern Status LastModified by Organization Details LastModified Time None Recorded Advance Directives Directive None Recorded Payers Encounter Date Sequence Insurance Name Policy Number Policy Howard Covered Member ID Howard Member ID Guarantor Name 12/23/2015 1 [employer] [id number] Pratibha Burdick [id number] 1 Pratibha Burdick 06/10/2017 1 [place] [id number] Pratibha Brudick [id number] 1 Pratibha Burdick 09/26/2018 1 [place] [id number] Pratibha Gennaro [id number] 1 Pratibha Gennaro 10/15/2019 1 [place] [id number] Pratibha Gennaro [id number] 1 Pratibha Burdick 05/20/2023 1 [place] [id number] Pratibha Gennaro [id number] 1 Pratibha Gennaro Notes Date Note Type Note Provider Name [...] weight bearing as well. Carly Krueger MD [address] [place] [address] [place] [address], [place] - [facility] 05/20/2023 12:34:15 OBGyn Episode No OBEpisode recorded.
--- OUTSIDE RECORDS SUMMARY | 2024-11-15 13:17 | XMS_ITS | Clinical Summary ---
Author Organization [facility] Address [address] [place] [address] Care Team Providers Care Policy Analyst Name Role Phone Shoshana Hunter MD Primary Care Provider [phone] Social History Tobacco Use Types Packs/Day Years Used Date Smoking Tobacco: Never Assessed Sex and Gender Information Value Date Recorded Sex Assigned at Not on file Gender Identity Not on file Sexual Orientation Not on file Plan of Treatment Health Maintenance Due Date Last Done Comments Hepatitis C Screening 1959 COVID-19 Vaccine (#1) 1959 Depression Screening 1971 Preventative Health Evaluation 1977 DTap / Tdap / Td (1 - Tdap) 1978 Cervical Cancer Screening (P ap Smear) 1980 Colon Cancer Screening (Colonoscopy) 2004 Breast Cancer Screening (Mammogram) 2009 Shingrix-Zoster Vaccine (1 of 2) 2009 Fall Risk Assessment 2024 Osteoporosis Screening (DEXA Scan) 2024 Pneumococcal Vaccine (1 of 1 - PCV) 2024 Influenza Vaccine (#1) 2024 RSV Adult > 60+ Yrs or Pregn ant (1 - 1-dose 75+ series) 2034 Hepatitis B Vaccines Aged Out No long er eligible based on patient's age to complete this topic Pneumococcal Vaccine Aged Out No long er eligible based on patient's age to complete this topic RSV Ped < 20 months Aged Out No longe r eligible based on patient's age to complete this topic Care Teams Policy Analyst Relationship Specialty Start Date End Date Shoshana Hunter MD [address] [facility] [place] [id number] PCP - General Internal Medicine 01/14/21
--- OUTSIDE RECORDS SUMMARY | 2024-11-15 13:17 | XMS_ITS | Continuity of Care Document ---
Author Organization [facility] Address [address] [place] [address] Dr [address] [place] [address] Phone Care Team Providers Care Fire Captain Marine Name Role Phone Geronimo Avalos MD, FACS, RVT Unavailable Unavailable Allergies, Adverse Reactions, Alerts Substance Reaction Status Criticality No Known Allergies Active No Inform ation Procedures Procedure Date Office/Outpt E&M Established 15 Mins Mar Office/Outpt E&M Established 15 Mins Nov Duplex Scan-extrem Veins; [facility]/ Advance Directives Directive Yes / No Effective Date File Name No Information Encounters Encounter Description Practice Location Reason(s) For Visit Diagnoses Date Provider Providers Copied on Encounter [facility], [address] [place] [address] [address]Jairon [place], [id number], [place] tel:[phone] [facility] No Information 3 Rock MESA FACS DENISE Donaldson. [address] [facility] [address], [place], [address], [place]. tel:[phone] Referring Provider: Shoshana Hunter MD Rock, [address] [facility] [address] [facility], [place], [address]. tel:[phone] Office/Outpt E&M Established 15 Mins [facility], [address] [place] [address] Dr Olinda [address] 1000Jairon [place], [id number], [place] tel:[phone] [facility] Pain in right lower leg 3 Rock MESA [facility] [employer]. [address] [address], [place], [address], [place]. tel:[phone] Referring Provider: Shoshana Hunter MD Rock, [address] [place] [address], [place], [address]. tel:[phone] Office/Outpt E&M Established 15 Mins [facility], [address] [place] [address] [address], [place], [id number], [place] tel:[phone] [facility] Body mass index (BMI) 23.0-23.9, adultVenous insufficiency (chronic) (peripheral) 3 Rock [facility]. [facility] [address], [place], [address], [place]. tel:[phone] Referring Provider: Shoshana Hunter MD Rock, [address] [place] [address], [place], [address]. tel:[phone] [facility], [address] [place] [address] [address], [place], [id number], [place] tel:[phone] [facility] Encntr for f/u exam aft trtmt for cond oth than malig neoplmVaricose veins of left lower extremities with pain 2 Rock MESA FACS T [facility]. [address] [facility], Suite [facility], [place], [address], [place]. tel:[phone] Referring Provider: Amy Oconnor MD, [address] [place] [address], [address]. tel:[phone] Family History Family Member Type Diagnosis Age At Onset No Information Payers Payer name Insurance type Covered constitution party ID Authoriza tiloretta(s) Pasha CI [id number] Social History Type Description Quantity Date Captured [...]
== END 2024-11-15 11:46 | disposition home or self-care (01) ==
LOC: HO.HMCC 11:08
PROVIDERS: PCP Internal Medicine; Visit Provider Internal Medicine
DX: F41.8 Other specified anxiety disorders (principal); F40.240 Claustrophobia

== ENCOUNTER → 2024-11-15 11:08 | Outpatient (BNVA) | payer OTHER, SELFPAY | PROVIDERS: PCP Internal Medicine; Visit Provider Internal Medicine | DX: F41.8 Other specified anxiety disorders (principal); F40.240 Claustrophobia | CPT/HCPCS: 96127 ==

== ENCOUNTER 2025-01-31 09:28 | Outpatient (AMB) | payer OTHER, SELFPAY ==
--- NOTE | 2025-01-31 09:28 | AM.OFFWIN_ITS ---
Intake Vital Signs 01/31/25 09:29 Height 5 ft 7 in Weight 133 lb 6 oz BMI 20.9 BP 104/66 Blood Pressure Location Lt brachial Position Sitting Pulse 86 Pulse Source Pulse Oximeter Temp 97.6 F Temp Source Oral Pulse Oximetry (%) 98 Oxygen Delivery Method Room Air Intake Visit Reasons: EP-abdominal pain Intake Note: Pt presents to the office today for c/o lower abdominal pain x1 week. Pt states she is having issues with constipation. Pt states she has tried prune juice, miralax,and stool softeners. Patient Tobacco Use Status: Current someday Tobacco user Allergies No Known Allergies [No Known Allergies*] Allergy (Verified 01/31/25 09:33) HPI EP-abdominal pain HPI Details This is a 64-year-old female patient who presents to the walk-in clinic today with abdominal cramping. She states that she has had intermittent constipation over the last several months. On Monday, she had severe abdominal cramping and constipation, she over the next 2 days used prune juice, increased hydration, and used MiraLax, and 2 days later on Monday, she was able to have a BM. Since then, she has had normal BMs, typically once daily. These have been normal in consistency and not significantly hard. She has been voiding without difficulty. She does note that stools are dark in appearance. Currently, she does not have any abdominal pain or cramping. [facility] Medical History Claustrophobia History of ductal carcinoma in situ (DCIS) of breast (~2015) Hepatitis C Tubular adenoma of colon (~2021) Osteopenia of left femoral neck (~2015) Nicotine dependence, cigarettes, uncomplicated Depression with anxiety History of varicose veins Spondylosis of lumbar region without myelopathy or radiculopathy History of COVID-19 Vaccination refused by patient Surgical History History of colonoscopy History of esophagogastroduodenoscopy (EGD) History of right mastectomy History of right breast biopsy History of endometrial ablation History of tubal ligation Family History Father CAD (coronary artery disease) Mother Medical history non-contributory Brother No problems noted. Sister No problems noted. Daughter No problems noted. Social History Housing: House Are you a primary health care administrator to a significant other at home: No Do you presently have visiting nurse or other home services: No Alcohol intake: current Alcohol intake frequency: holidays/special occasions only Patient Tobacco Use Status: Current someday Tobacco user Tobacco use type: Cigarette Cigarette Packs Per Day: 0 Cigarettes Per Day: 2 Years Smoked: (onset 13yo, 1/2ppd x 51yrs, now 2cig/day - 25pyh) e-Cigarette/Vaping Use: Never Used service: No Current occupational status: employed Sexual orientation: Straight/Heterosexual Gender identity: Female Cognitive needs: No Hearing needs: No Vision needs: No Review of Systems Const All systems reviewed & are unremarkable except as noted in HPI and below Physical Exam Vital Signs: Last Vital Signs Temp 97.6 F 01/31/25 09:29 Pulse 86 01/31/25 09:29 BP 104/66 01/31/25 09:29 Pulse Ox 98 01/31/25 09:29 Oxygen Delivery Method Room Air 01/31/25 09:29 BMI result Body Mass Index 20.9 Const General: cooperative, healthy appearing, comfortable and no acute distress HEENT Head: Yes normal to inspection Resp Effort & Inspection: normal respiratory effort Auscultation: clear to auscultation bilaterally Cardio Rate: regular rate Rhythm: regular rhythm GI Inspection: Yes normal to inspection Palpation (GI): Soft to palpation (nontender) and No hepatosplenomegaly present Auscultation: Hypoactive bowel sounds present Skin General skin exam: no rashes or lesions noted Extrem General: Yes capillary refill normal and Yes no clubbing, cyanosis or edema Psych Appearance: grossly normal Mental Status: mental status grossly normal Speech and movement: Normal speech and movement present Assessment & Plan Assessment & Plan (1) Constipation: Code(s): K59.00 - Constipation, unspecified Qualifiers: Constipation type: unspecified constipation type Qualified Code(s): K59.00 - Constipation, unspecified Plan: Patient is having intermittent constipation. Currently, she is having normal bowel movements, once daily. Abd assessment is normal. She states they are dark in color. She has a follow-up with her PCP, Dr. Hunter, scheduled in a week or 2 to follow up on this. I will start her on a docusate sodium b.i.d. to see if this helps prevent her constipation. If she develops any severe constipation or severe abdominal pain, she should go to the emergency department for evaluation. In the interim, I have encouraged increased hydration, healthy food/fiber/vitamin intake. She verbalizes understanding and agrees to plan. Medications: New docusate sodium 100 mg PO BID 30 days 60 caps 0RF K59.00 - Constipation, unspecified Coding Level of Care Code Est Pt Level 4 (99446) Diagnoses Constipation, unspecified constipation type K59.00 Constipation type: unspecified constipation type
[2025-01-31 09:29] VITALS: BP 104/66; PULSE 86; TEMP 36.4; O2SAT 98; BMI 20.9
--- OUTSIDE RECORDS SUMMARY | 2025-01-31 09:53 | XMS_ITS | Clinical Summary ---
Author Organization [facility] Address [address] [place] [address] Care Team Providers Care College Athlete Name Role Phone Shoshana Hunter MD Primary Care Provider [phone] Surgical History Surgery Date Site/Laterality Comments TUBAL [...] drink = 0.6 oz pur e alcohol) Comments Unknown Sex and Gender Information Value Date Recorded Sex Assigned at Not on file Legal Sex Female 5:24 AM EST Gender Identity Not on file Sexual Orientation Not on file Obstetrics History Plan of Treatment Health Maintenance Due Date Last Done Comments Breast Cancer Screening 1959 DTaP,Tdap,and Td Vaccines (1 - Tdap) 1978 Cervical Cancer Screening: P ap Smear 1980 Pneumococcal Vaccine: 50+ Ye ars (1 of 1 - PCV) 2009 Zoster Vaccines (1 of 2) 2009 COVID-19 Vaccine (2023-2 5 season) 2024 Influenza Vaccine (Season Ended) 2025 RSV Immunization Adult Patie nts (1 - 1-dose 75+ series) 2034 HIB [...] patient's age to complete this topic Meningococcal B Vaccine Aged Out No l onger eligible based on patient's age to complete [...] age to complete this topic Care Teams College Athlete Relationship Specialty Start Date End Date Shoshana Hunter MD [address] [facility] [place] [address] PCP - General Internal Medicine 01/14/21
--- OUTSIDE RECORDS SUMMARY | 2025-01-31 09:53 | XMS_ITS | Continuity of Care Document ---
Author Organization [facility] Address [address] [place] [address] Dr [address] [place] [address] Phone Care Team Providers Care Compensation Advisor Name Role Phone Geronimo Avalos MD, FACS, RVT Unavailable Unavailable Allergies, Adverse Reactions, Alerts Substance Reaction Status Criticality No Known Allergies Active No Inform ation Procedures Procedure Date Office/Outpt E&M Established 15 Mins Mar Office/Outpt E&M Established 15 Mins Nov Duplex Scan-extrem Veins; [facility]/ Advance Directives Directive Yes / No Effective Date File Name No Information Encounters Encounter Description Practice Location Reason(s) For Visit Diagnoses Date Provider Providers Copied on Encounter [facility], [address] [place] [address] [address] 1000Jairon [place], [id number], [place] tel:[phone] [facility] No Information 3 Rock MESA FACS DENISE Donaldson. [address] [facility] 302, [place], [address], [place]. tel:[phone] Referring Provider: Shoshana Hunter MD Rcok, 262 [facility] 262 [facility], [place], [address]. tel:[phone] Office/Outpt E&M Established 15 Mins [facility], [address] [place] [address] Dr Olinda 1000[address] 1000Jairon [place], [id number], [place] tel:[phone] [facility] Pain in right lower leg 3 Rock [facility] [employer]. [address] [address], [place], [address], [place]. tel:[phone] Referring Provider: Shoshana Hunter MD Rock, [address] [place] [address], [place], [address]. tel:[phone] Office/Outpt E&M Established 15 Mins [facility], [address] [place] [address] [address], [place], [id number], [place] tel:[phone] [facility] Body mass index (BMI) 23.0-23.9, adultVenous insufficiency (chronic) (peripheral) 3 Rock [facility] [address], [place], [address], [place]. tel:[phone] Referring Provider: Shoshana Hunter MD Rock, [address] [place] [address], [place], [address]. tel:[phone] [facility], [address] [place] [address] [address], [place], [id number], [place] tel:[phone] [facility] Encntr for f/u exam aft trtmt for cond oth than malig neoplmVaricose veins of left lower extremities with pain 2 Rock MESA FACS T [employer]. [address], Suite [facility], [place], [address], [place]. tel:[phone] Referring Provider: Amy Oconnor MD, [address] [place] [address], [address]. tel:[phone] Family History Family Member Type Diagnosis Age At Onset No Information Payers Payer name Insurance type Covered democrat ID Authoriza tiloretta(s) Pasha CI [id number] Social History Type Description Quantity Date Captured [...]
--- OUTSIDE RECORDS SUMMARY | 2025-01-31 09:53 | XMS_ITS | Clinical Summary ---
Author Organization [facility] Address [address] [place] [address] Care Team Providers Care Painter And Decorator Name Role Phone Shoshana Hunter MD Primary Care Provider [phone] Social History Tobacco Use Types Packs/Day Years [...] age to complete this topic Care Teams Painter And Decorator Relationship Specialty Start Date End Date Shoshana Hunter MD [address] [facility] [place] [id number] PCP - General Internal Medicine 01/14/21
--- OUTSIDE RECORDS SUMMARY | 2025-01-31 09:53 | XMS_ITS | Data Portability ---
Author Organization [facility], [address] Address [address] [place] [address] Care Team Providers Care Corner Cutter Name Role Phone JONY MICHAEL Primary Care Provider [phone] Assessment No assessment recorded. Plan of Treatment Reminders Order Date Submit Date Provider Last Modified By Organization Details Last Modified Time Details Appointments None recorded . Lab None recorded . Referral [facility] ic [facility] [address] [facility] [place], [address], 3 10:59:07 Procedures None recorded . Surgeries applicat ion of naif tape/spl int, phalanx (toe) (SURG) 2022 023 [email or web address] Not available 3 08:47:35 Imaging XR, toe(s), 2 or more view - right 2022 023 [facility], [address] [place] [address], [address], 3 09:43:39 Medication Orders None recorded . Patient TargetsNo targets recorded. Patient Instructions Encounter Date Encounter Id Patient Instructions Last Modified By Organization Details Last Modified Time 05/20/2023 [id number] broken toe: care instructions [email or web address] Not available 05/20/2023 09:27:42 Keep toe naif taped as instructed. Wear the cast shoe while walking. Elevate your foot as much as possible. Follow-up with your doctor in one week. Over the counter tylenol or ibuprofen may be taken for pain per package instructions as needed. See printed instructions. Seek Emergency Medical evaluation for any worsening symptoms. [email or web address] Not available 05/20/2023 09:27:41 Patient contacte d after official radiology report returned and orthopedic referral made to [facility] for her. [email or web address] Not available 05/20/2023 10:49:19 Reason for Referral [...] more view No observ ation record ed. [email or web address] [facility] [address] [place], [address], 05/20/2023 10:49:56 Result Notes None recorded. Problems No Known Problems Procedures Surgical History Date Name Laterality Status Provider Name and Address Organization Details Recorded Time NAIF TAPE completed Carly Krueger MD [address] [place], [address], [place] - [facility] 05/20/2023 09:34:42 excision of breast completed Radha Britt PA - [facility] 05/20/2023 08:36:36 Imaging Results Imaging Date Name Status LastModified by Organiz ation Details LastModified Time 05/20/2023 XR, toe(s), 2 or more view completed [facility] [address] [place], [address], 05/20/2023 10:49:56 Procedure Notes None recorded. Medical [...] by Pulse oximetry Heart rate Respiratory rate Pain severity - 0-10 verbal numeric rating [Score] - Reported Body temperature Systolic blood pressure Diastolic blood pressure Provider Name and Address Organization Details Last Updated DateTime 170.18 cm 23.5 kg/m2 88510.8 6 g 98 % 98 % 81 /min 18 /min 5 96.3 [degF] 129 mm[Hg] 82 mm[Hg] Radha Britt [facility] 08:35:25 Social History Question Answer Notes LastModified by Organizat ion Details LastModified Time Tobacco Smoking Status Current Every Day Smoker Radha corrigan [facility] 05/20/2023 08:35:07 What Is Your Level Of [...] split virus, quadrivalent, preservative 8 completed Radha [place] null, [place] - [facility] 05/20/2023 08:34:25 Influenza, split virus, quadrivalent, preservative 6 completed Radha Balw[place] null, [place] - [...] toxoid, preservative free, adsorbed 9 completed Radha [place] null, [place] - [facility] 05/20/2023 08:34:25 Past Encounters Encounter ID Performer Location Encounter Start Date Encounter Closed Date Diagnosis/Indication Diagnosis SNOMED-CT Code Diagnosis ICD10 Code Diagnosis Note [id number] [address] [address] 06/10/2017 13:44:38 06/10/2017 15:04:45 [id number] [address] [place] [address] 10/15/2019 14:46:06 10/15/2019 15:21:06 [id number] [address] [place] [address] 12/23/2015 15:01:16 12/23/2015 15:33:51 [id number] [address] [place] [address] 09/26/2018 15:26:55 09/26/2018 16:30:37 [id number] [address] [place] [address] 12/10/2015 15:37:10 12/10/2015 16:04:06 [id number] Carly Krueger MD [address] [place] [id number] 05/20/2023 08:29:54 05/20/2023 09:36:13 Contusion of right great toe 2381947012 2368521 S90.111A Closed fra cture of proximal phalanx of great toe 093273462 S92.414A Health Concerns Section Related Observation LastModified by Organization Detai ls LastModified Time None Recorded Concern Status LastModified by Organization Details LastModified Time None Recorded Advance Directives Directive None Recorded Payers Encounter Date Sequence Insurance Name Policy Number Policy Howard Covered Member ID Howard Member ID Guarantor Name 12/23/2015 1 [facility] [id number] Pratibha Burdick [id number] 1 [id number] Pratibha Burdick 06/10/2017 1 [facility] [id number] Pratibha Burdick [id number] 1 [id number] Pratibha Burdick 09/26/2018 1 [facility] [id number] Pratibha Burdick [id number] Pratibha Burdick 10/15/2019 1 [facility] [id number] Pratibha Burdick [id number] 1 [id number] Pratibha Burdick 05/20/2023 1 [facility] [id number] Pratibha Burdick [id number] 1 [id number] Pratibha Burdick Notes Date Note Type Note [...] weight bearing as well. Carly Krueger MD [address] [place], [address], [place] - [facility] 05/20/2023 12:34:15 OBGyn Episode No OBEpisode recorded.
== END 2025-01-31 10:37 | disposition home or self-care (01) ==
PROVIDERS: PCP Internal Medicine; Visit Provider Nurse Practitioner Family
DX: K59.00 Constipation, unspecified (principal)

== ENCOUNTER 2025-01-31 13:03 | Outpatient (REF) | payer OTHER, SELFPAY ==
--- NOTE | ~2025-01-31 | CT_ITS ---
EXAMINATION: CT LOW-DOSE SCREENING CHEST WITHOUT CONTRAST CLINICAL INFORMATION: 64-year-old female, current smoker, 30 pack-year prior. Lung cancer screening. COMPARISON: None available. TECHNIQUE: Multidetector volumetric CT imaging of the chest is performed on a Siemens SOMATOM Definition scanner without contrast using low dose technique. Additional 2D coronal and sagittal reformatted images and axial 3D maximum intensity projection (MIP) images are generated on the CT workstation. This CT examination was performed using dose optimization techniques as appropriate, variously including the following: *Automated exposure control *Adjustment of mA and/or kV according to patient size (this includes techniques or standardized protocols for targeted exams where dose is matched to indication/reason for exam; i.e. extremities or head) *Use of iterative reconstruction technique FINDINGS: PULMONARY NODULES: -There are scattered bilateral 2-3 mm calcified granulomata. -2 mm nodule peripheral anterolateral right upper lobe (series 6, image 34). -3 mm nodule anteromedial right upper lobe (series 6, image 34). -4 mm groundglass nodule anterior right upper lobe (series 6, image 57). -3 mm groundglass nodule minor fissure (series 6, image 75). -3 mm nodule superior right middle lobe medially (series 6, image 84). -3 mm nodule left upper lobe anteriorly (series 6, image 28). -There are several additional small 2 to 3 mm nodules in the left lung. LUNGS: Moderate centrilobular emphysema with upper lobe predominance. No abnormal consolidations or groundglass opacities. Small airways appear normal without thickening. Central airways are patent. No pleural effusion or pneumothorax. Minimal linear atelectasis or scarring in the lingula and right middle lobe. MEDIASTINUM: Normal thyroid. No mediastinal lymphadenopathy or mass. Aorta is normal in caliber with minimal atheromatous calcification. Descending aorta is mildly tortuous. Main pulmonary artery is normal in size. Heart size is normal. There is no pericardial effusion. There is no esophageal abnormality. CORONARY ARTERY CALCIFICATION: None visualized on this study. CHEST WALL/AXILLA: Right breast implant in place. No abnormal lymph nodes. UPPER ABDOMEN: Imaged upper abdominal structures appear normal. OSSEOUS STRUCTURES: No suspicious lytic or blastic bone lesions. Mild chronic appearing superior endplate compression deformities of T8 and T12, and the inferior endplate of L1. CT/CT lung screening IMPRESSION: 1. Scattered 2 to 3 mm calcified and noncalcified pulmonary nodules. 2. Moderate centrilobular emphysema with upper lobe predominance. No active pulmonary disease. 3. Ancillary findings as discussed. ASSESSMENT: 1. Lung-RADS Category 2: Benign appearance or behavior of nodules. 2. Lung-RADS Category S: None. RECOMMENDATION: Continued routine annual low-dose CT lung screening in 1 year is recommended. An order for CT CHEST LOW DOSE CANCER SCREENING ([id number]) can be placed. Electronically signed by: Naseem Butler MD 01/31/2025 02:06 PM EDT
--- OUTSIDE RECORDS SUMMARY | 2025-01-31 13:33 | XMS_ITS | Continuity of Care Document ---
Author Organization [facility] Address [address] [place] [address] Dr [address] [place] [address] Phone Care Team Providers Care Barrel Raiser Helper Name Role Phone Geronimo Avalos MD, FACS, RVT Unavailable Unavailable Allergies, Adverse Reactions, Alerts Substance Reaction Status Criticality No Known Allergies Active No Inform ation Procedures Procedure Date Office/Outpt E&M Established 15 Mins Mar Office/Outpt E&M Established 15 Mins Nov Duplex Scan-extrem Veins; [facility]/ Advance Directives Directive Yes / No Effective Date File Name No Information Encounters Encounter Description Practice Location Reason(s) For Visit Diagnoses Date Provider Providers Copied on Encounter [facility], [address] [place] [address] [address] 1000Jairon [place], [id number], [place] tel:[phone] [facility] No Information 3 Rock MESA FACS DENISE Donaldson. [address] [facility] 302, [place], [address], [place]. tel:[phone] Referring Provider: Shoshana Hunter MD Rock, 262 [facility] 262 [facility], [place], [address]. tel:[phone] Office/Outpt E&M Established 15 Mins [facility], [address] [place] [address] Dr Olinda 1000[address] 1000Jairon [place], [id number], [place] tel:[phone] [facility] Pain in right lower leg 3 Rock MESA [facility] [employer]. [address] [address], [place], [address], [place]. tel:[phone] Referring Provider: Shoshana Hunter MD Rock, [address] [place] [address], [place], [address]. tel:[phone] Office/Outpt E&M Established 15 Mins [facility], [address] [place] [address] [address], [place], [id number], [place] tel:[phone] [facility] Body mass index (BMI) 23.0-23.9, adultVenous insufficiency (chronic) (peripheral) 3 Rock [facility] [address], [place], [address], [place]. tel:[phone] Referring Provider: Shoshana Hunter MD Rock, [address] [place] [address], [place], [address]. tel:[phone] [facility], [address] [place] [address] [address], [place], [id number], [place] tel:[phone] [facility] Encntr for f/u exam aft trtmt for cond oth than malig neoplmVaricose veins of left lower extremities with pain 2 Rock MESA FACS T [employer]. [address] [facility], Suite [facility], [place], [address], [place]. tel:[phone] Referring Provider: Amy Oconnor MD, [address] [place] [address], [address]. tel:[phone] Family History Family Member Type Diagnosis Age At Onset No Information Payers Payer name Insurance type Covered constitution party ID Authoriza tiloretta(s) Pasha CI [id number] Social History Type Description Quantity Date Captured [...]
--- OUTSIDE RECORDS SUMMARY | 2025-01-31 13:33 | XMS_ITS | Clinical Summary ---
Author Organization [facility] Address [address] [place] [address] Care Team Providers Care Oliving Machine Operator Name Role Phone Shoshana Hunter MD Primary Care Provider [phone] Social History Tobacco Use Types Packs/Day Years [...] age to complete this topic Care Teams Oliving Machine Operator Relationship Specialty Start Date End Date Shoshana Hunter MD [address] [facility] [place] [id number] PCP - General Internal Medicine 01/14/21
--- OUTSIDE RECORDS SUMMARY | 2025-01-31 13:33 | XMS_ITS | Clinical Summary ---
Author Organization [facility] Address [address] [place] [address] Care Team Providers Care Aircraft Maintenance Engineer Name Role Phone Shoshana Hunter MD Primary [...] age to complete this topic Care Teams Aircraft Maintenance Engineer Relationship Specialty Start Date End Date Shoshana Hunter MD [address] [facility] [address] PCP - General Internal Medicine 01/14/21
== END 2025-01-31 13:04 | disposition home or self-care (01) ==
LOC: HO.CT 13:03
PROVIDERS: PCP Internal Medicine; Visit Provider Physician Assistant Medical
DX: Z12.2 Encounter for screening for malignant neoplasm of respiratory organs (principal); F17.210 Nicotine dependence, cigarettes, uncomplicated
CPT/HCPCS: 71271

== ENCOUNTER → 2025-01-31 13:08 | Outpatient (BNV) | payer OTHER, SELFPAY | PROVIDERS: PCP Internal Medicine; Visit Provider Radiology Diagnostic Radiology | DX: F17.210 Nicotine dependence, cigarettes, uncomplicated (principal) | CPT/HCPCS: 71271 ==

== ENCOUNTER 2025-02-10 08:00 | Outpatient (AMB) | payer OTHER, SELFPAY ==
--- OUTSIDE RECORDS SUMMARY | 2025-02-10 08:03 | XMS_ITS | Clinical Summary ---
Author Organization [facility] Address [address] [place] [address] Care Team Providers Care Admission Nurse Name Role Phone Shoshana Hunter MD Primary Care Provider [phone] Social History Tobacco Use Types Packs/Day Years [...] age to complete this topic Care Teams Admission Nurse Relationship Specialty Start Date End Date Shoshana Hunter MD [address] [facility] [place] [id number] PCP - General Internal Medicine 01/14/21
--- OUTSIDE RECORDS SUMMARY | 2025-02-10 08:03 | XMS_ITS | Clinical Summary ---
Author Organization [facility] Address [address] [place] [address] Care Team Providers Care Garbage Man Name Role Phone Shoshana Hunter MD Primary [...] age to complete this topic Care Teams Garbage Man Relationship Specialty Start Date End Date Shoshana Hunter MD [address] [facility] [place] [address] PCP - General Internal Medicine 01/14/21
--- OUTSIDE RECORDS SUMMARY | 2025-02-10 08:03 | XMS_ITS | Data Portability ---
Author Organization [facility] [address] Address [address] [place] [address] Care Team Providers Care Activity Coordinator Name Role Phone JONY MICHAEL Primary Care Provider Assessment No assessment recorded. Plan of Treatment Reminders Order Date Submit Date Provider Last Modified By Organization Details Last Modified Time Details Appointments None recorded . Lab None recorded . Referral orthoped ic [facility] [address] [facility] [place], [address], 3 10:59:07 Procedures None recorded . Surgeries applicat ion of naif tape/spl int, phalanx (toe) (SURG) 2022 023 [email or web address] Not available 3 08:47:35 Imaging XR, toe(s), 2 or more view - right 2022 023 [facility], [address] [place] [address], [address], 3 09:43:39 Medication Orders None recorded . Patient TargetsNo targets recorded. Patient Instructions Encounter Date Encounter Id Patient Instructions Last Modified By Organization Details Last Modified Time 05/20/2023 [id number] broken toe: care instructions [email or web address] Not available 05/20/2023 09:27:42 Keep toe naif taped as instructed. Wear the cast shoe while walking. Elevate your foot as much as possible. Follow-up with your doctor in one week. Over the counter tylenol or ibuprofen may be taken for pain per package instructions as needed. See printed instructions. Seek Emergency Medical evaluation for any worsening symptoms. [email or web address] Not available 05/20/2023 09:27:41 Patient contacte d after official radiology report returned and orthopedic referral made to [facility] for her. [email or web address] Not available 05/20/2023 10:49:19 Reason for Referral [...] more view No observ ation record ed. [email or web address] [facility] [address] [place], [address], 05/20/2023 10:49:56 Result Notes None recorded. Problems No Known Problems Procedures Surgical History Date Name Laterality Status Provider Name and Address Organization Details Recorded Time NAIF TAPE completed Carly Krueger MD [address] [place], [address], [place] - [facility] 05/20/2023 09:34:42 excision of breast completed Radha Britt PA - [facility] 05/20/2023 08:36:36 Imaging Results Imaging Date Name Status LastModified by Organiz ation Details LastModified Time 05/20/2023 XR, toe(s), 2 or more view completed [email or web address] [facility] [address] [place], [address], 05/20/2023 10:49:56 Procedure Notes None recorded. Medical [...] Last Updated DateTime 170.18 cm 23.5 kg/m2 46098.8 6 g 98 % 98 % 81 /min 18 /min 5 96.3 [degF] 129 mm[Hg] 82 mm[Hg] Radha Britt [facility] 08:35:25 Social History Question Answer Notes LastModified by Organizat ion Details LastModified Time Tobacco Smoking Status Current Every Day Smoker Radha corrigan [facility] 05/20/2023 08:35:07 What Is Your Level Of [...] split virus, quadrivalent, preservative 8 completed Radha Lyons null, PA - [facility] 05/20/2023 08:34:25 [...] toxoid, preservative free, adsorbed 9 completed Radha Lyons null, PA - [facility] 05/20/2023 08:34:25 Past Encounters Encounter ID Performer Location Encounter Start Date Encounter Closed Date Diagnosis/Indication Diagnosis SNOMED-CT Code Diagnosis ICD10 Code Diagnosis Note [id number] [address] [address] 06/10/2017 13:44:38 06/10/2017 15:04:45 [id number] [address] [facility] [place] [id number] 10/15/2019 14:46:06 10/15/2019 15:21:06 [id number] [address] [facility] [place] [address] 12/23/2015 15:01:16 12/23/2015 15:33:51 [id number] [address] [facility] [place] [address] 09/26/2018 15:26:55 09/26/2018 16:30:37 [id number] [address] [facility] [place] [address] 12/10/2015 15:37:10 12/10/2015 16:04:06 [id number] Carly Krueger MD [address] [facility] [place] [id number] 05/20/2023 08:29:54 05/20/2023 09:36:13 Contusion of right great toe [id number] S90.111A Closed fra cture of proximal phalanx of great toe [id number] S92.414A Health Concerns Section Related Observation LastModified by Organization Detai ls LastModified Time None Recorded Concern Status LastModified by Organization Details LastModified Time None Recorded Advance Directives Directive None Recorded Payers Encounter Date Sequence Insurance Name Policy Number Policy Howard Covered Member ID Howard Member ID Guarantor Name 12/23/2015 1 [facility] [id number] Pratibha Burdick [id number] Pratibha Burdick 06/10/2017 1 [facility] [id number] Pratibha Burdick [id number] 1 [id number] Pratibha Burdick 09/26/2018 1 [facility] [id number] Pratibha Burdick [id number] 1 [id number] Pratibha Burdick 10/15/2019 1 [facility] [id number] Pratibha Burdick [id number] 1 [id number] Pratibha Burdick 05/20/2023 1 [facility] [id number] Pratibha Burdick [id number] Pratibha Burdick Notes Date Note Type [...] Carly Krueger MD [address] [place], [address], [place] - [facility] 05/20/2023 12:34:15 OBGyn Episode No OBEpisode recorded.
[2025-02-10 08:06] VITALS: BP 100/70; PULSE 74; RESP 16; TEMP 36.7; O2SAT 97; BMI 20.8
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
== END 2025-02-10 08:56 | disposition home or self-care (01) ==
LOC: HO.HMCC 08:00
PROVIDERS: PCP Internal Medicine; Visit Provider Internal Medicine
DX: Z86.0101 Personal history of adenomatous and serrated colon polyps (principal); Z87.19 Personal history of other diseases of the digestive system; J30.89 Other allergic rhinitis

== ENCOUNTER → 2025-02-10 08:00 | Outpatient (BNVA) | payer OTHER, SELFPAY | PROVIDERS: PCP Internal Medicine; Visit Provider Internal Medicine | DX: J30.89 Other allergic rhinitis (principal); F32.A Depression, unspecified; F41.9 Anxiety disorder, unspecified; Z86.0101 Personal history of adenomatous and serrated colon polyps; Z87.19 Personal history of other diseases of the digestive system; Z86.000 Personal history of in-situ neoplasm of breast; Z79.899 Other long term (current) drug therapy | CPT/HCPCS: 96127 ==

== ENCOUNTER 2025-02-18 10:23 | Outpatient (AMB) | payer OTHER, SELFPAY ==
--- NOTE | 2025-02-18 10:29 | A.OFFVIS_ITS ---
Vital Signs 02/18/25 10:36 Height 5 ft 7 in Weight 133 lb BMI 20.8 BP 106/70 Blood Pressure Location Lt brachial Position Sitting Pulse 82 Pulse Source Pulse Oximeter Pulse Oximetry (%) 98 Oxygen Delivery Method Room Air Intake Visit Reasons: Abdominal pain Intake Note: ESTABLISHED PATIENT for abd pain and possibly discuss colo, 3rd lifetime. Last 2021. Chief Complaint; C/O constipation, black stools, severe abd pain episode which was approximately 1 mos ago. Pt reports that she sought care from her PCP who prescribed docusate sodium which has helped somewhat per pt. Pt denies any additional sx or concerns. Church Musician Required: No Accompanied by: Self / Same As Patient Allergies No Known Allergies [No Known Allergies*] Allergy (Verified 02/18/25 10:32) HPI HPI Abdominal pain: Details: LAST VISIT 11/01/2022 Tubular adenoma Tubular adenoma found without high-grade dysplasia or carcinoma, patient will need to return for colorectal screening in 3 years sooner if clinically necessary. Patient is aware that her blood relatives should go for early colorectal screening. Status post colonoscopy Patient denies any ill effects from the prep, anesthesia or procedure itself. Tubular adenoma and serrated sessile polyps found. Patient will return for colorectal screening in 3 years, sooner if clinically appropriate. Patient is agreeable to this plan she can follow up on as needed basis otherwise. She was given the opportunity to ask questions all questions answered. TODAY'S VISIT Patient is here today for follow-up. Patient is due to go for colonoscopy in September of this year. Reports to have a constipation left lower quadrant pain. Patient reports that about a month ago experienced severe cramping in lower abdomen radiating to left lower quadrant. Patient was constipated for few days and when she had a bowel movement her stools were black. Patient denies any hematochezia. Given by her PCP stool softener which has been helping. Patient is also drinking fluids. She states that she is dizzy working. Patient denies any dyspepsia, dysphagia or odynophagia. Reports that she has not had any trouble with anesthesia in the past. No history of sleep apnea. Not on any anticoagulation medication. [facility] Medical History Environmental and seasonal allergies Claustrophobia History of ductal carcinoma in situ (DCIS) of breast (~2015) Hepatitis C Tubular adenoma of colon (~2021) Osteopenia of left femoral neck (~2015) Nicotine dependence, cigarettes, uncomplicated Depression with anxiety History of varicose veins Spondylosis of lumbar region without myelopathy or radiculopathy History of COVID-19 Vaccination refused by patient Surgical History History of colonoscopy History of esophagogastroduodenoscopy (EGD) History of right mastectomy History of right breast biopsy History of endometrial ablation History of tubal ligation Family History Father CAD (coronary artery disease) Mother Medical history non-contributory Brother No problems noted. Sister No problems noted. Daughter No problems noted. Social History Housing: House Are you a primary infant childcare provider to a significant other at home: No Do you presently have visiting nurse or other home services: No Alcohol intake: current Alcohol intake frequency: holidays/special occasions only Patient Tobacco Use Status: Current someday Tobacco user Tobacco use type: Cigarette Cigarette Packs Per Day: 0 Cigarettes Per Day: 2 Years Smoked: (onset 13yo, 1/2ppd x 51yrs, now 2cig/day - 25pyh) e-Cigarette/Vaping Use: Never Used service: No Current occupational status: employed Sexual orientation: Straight/Heterosexual Gender identity: Female Cognitive needs: No Hearing needs: No Vision needs: No Review of Systems Const Denies weight gain and Denies weight loss ENT Reports no additional complaints, Denies dysphagia and Denies odynophagia Card Reports no additional complaints Resp Reports no additional complaints GI Denies abdominal pain, Denies belching, Denies melena, Denies bloating, Denies change in bowel habits, Denies dysphagia, Denies excessive flatus, Denies dyspepsia, Denies heartburn, Denies diarrhea, Denies loose stools, Denies nausea, Denies odynophagia and Denies vomiting Musc Reports no additional complaints Neuro Reports no additional complaints Psych Reports no additional complaints Endo Reports no additional complaints Physical Exam Vital Signs: Last Vital Signs Pulse 82 02/18/25 10:36 BP 106/70 02/18/25 10:36 Pulse Ox 98 02/18/25 10:36 Oxygen Delivery Method Room Air 02/18/25 10:36 BMI result Body Mass Index 20.8 Const General: healthy appearing, no acute distress and well developed Nutritional Appearance: well nourished Orientation/consciousness: patient oriented x3 Resp Effort & Inspection: normal respiratory effort, able to speak in complete sentences, no tracheal deviation and symmetric chest movement Auscultation: clear to auscultation bilaterally Cardio Rate: regular rate GI Inspection: Yes normal to inspection and No distended Palpation (GI): Soft to palpation, not firm, nontender and No hepatosplenomegaly present Auscultation: normal bowel sounds General: Yes no CVA tenderness Back/Spine/Pelvis Back: no CVA tenderness Skin General skin exam: elasticity normal, turgor normal and dry skin Neuro General: patient oriented x3 Psych Appearance: grossly normal Mental Status: mental status grossly normal Assessment & Plan Assessment & Plan (1) History of constipation: Code(s): Z87.19 - Personal history of other diseases of the digestive system Category: Medical (2) History of adenomatous polyp of colon: Code(s): Z86.0101 - Personal history of adenomatous and serrated colon polyps Category: Medical (3) Screen for colon cancer: Code(s): Z12.11 - Encounter for screening for malignant neoplasm of colon Plan Colonoscopy due in September of 2025. Patient denies any issues with anesthesia in the past. No history of sleep apnea. Not on any anticoagulation medication. Patient denies any cardiac or respiratory symptoms. Patient reports constipation, Colace not always working for her. Will send a script for Senokot. Increase fluid intake and activity to move her bowel motility. What to expect before during and after procedure discussed with patient. Stressed the importance of good bowel prep and clear liquid diet day before procedure. I will see patient after the procedure, sooner on as needed basis. She is agreeable to this plan and verbalizes understanding of instructions. She was given the opportunity to ask questions and all questions answered. Thank you for allowing me to participate in her care Medications: New bisacodyl (Dulcolax (bisacodyl)) take 4 tabs at noon the day before your colonoscopy 20 mg (4 x 5 mg) PO ONCE 4 tabs 0RF 1 day Z12.11 - Encounter for screening for malignant neoplasm of colon sennosides (Natural Senna Laxative) 17.2 mg (2 x 8.6 mg) PO BEDTIME 60 tabs 3RF constipation K59.00 - Constipation, unspecified polyethylene glycol 3350 (Miralax) As directed by gastroenterology department at [facility] 238 grams PO ONCE 238 grams 0RF Z12.11 - Encounter for screening for malignant neoplasm of colon Coding Level of Care Code Est Pt Level 3 (96706) Diagnoses History of constipation Z87.19 History of adenomatous polyp of colon Z86.0101 Screen for colon cancer Z12.11 Time Spent (min) 30 Comment 20 minutes spent with patient and additional 10 minutes spent reviewing her records
[2025-02-18 10:36] VITALS: BP 106/70; PULSE 82; O2SAT 98; BMI 20.8
--- OUTSIDE RECORDS SUMMARY | 2025-02-18 11:56 | XMS_ITS | Data Portability ---
Author Organization [facility] [address] Address [address] [place] [address] Care Team Providers Care Dipper Machine Operator Name Role Phone JONY MICHAEL Primary Care Provider Assessment No assessment recorded. Plan of Treatment Reminders Order Date Submit Date Provider Last Modified By Organization Details Last Modified Time Details Appointments None recorded . Lab None recorded . [facility] [address] [facility] [place], [address], 3 10:59:07 Procedures None recorded . Surgeries applicat ion of naif tape/spl int, phalanx (toe) (SURG) 2022 023 [email or web address] Not available 3 08:47:35 Imaging XR, toe(s), 2 or more view - right 2022 023 [facility], [address] [place] [address], [address], 3 09:43:39 Medication Orders None recorded . Patient TargetsNo targets recorded. Patient Instructions Encounter Date Encounter Id Patient Instructions Last Modified By Organization Details Last Modified Time 05/20/2023 [id number] broken toe: care instructions [email or web address] Not available 05/20/2023 09:27:42 Keep toe naif taped as instructed. Wear the cast shoe while walking. Elevate your foot as much as possible. Follow-up with your doctor in one week. Over the counter tylenol or ibuprofen may be taken for pain per package instructions as needed. See printed instructions. Seek Emergency Medical evaluation for any worsening symptoms. [email or web address] Not available 05/20/2023 09:27:41 Patient contacte d after official radiology report returned and orthopedic referral made to [facility] for her. [email or web address] Not available 05/20/2023 10:49:19 Reason for Referral [...] more view No observ ation record ed. [email or web address] [facility] [address] [place], [address], 05/20/2023 10:49:56 Result Notes None recorded. Problems No Known Problems Procedures Surgical History Date Name Laterality Status Provider Name and Address Organization Details Recorded Time NAIF TAPE completed Carly Krueger MD [address] [place], [address], [place] - [facility] 05/20/2023 09:34:42 excision of breast completed Radha Britt PA - [facility] 05/20/2023 08:36:36 Imaging Results Imaging Date Name Status LastModified by Organiz ation Details LastModified Time 05/20/2023 XR, toe(s), 2 or more view completed [facility] [address] [place], [address], 05/20/2023 10:49:56 Procedure Notes None recorded. Medical [...] Last Updated DateTime 170.18 cm 23.5 kg/m2 70246.8 6 g 98 % 98 % 81 /min 18 /min 5 96.3 [degF] 129 mm[Hg] 82 mm[Hg] Radha Britt [facility] 08:35:25 Social History Question Answer Notes LastModified by Organizat ion Details LastModified Time Tobacco Smoking Status Current Every Day Smoker Radha corrigan [facility] 05/20/2023 08:35:07 What Is Your Level Of [...] split virus, quadrivalent, preservative 8 completed Radha [place] null, PA - [facility] 05/20/2023 08:34:25 [...] toxoid, preservative free, adsorbed 9 completed Radha [place] null, PA - [facility] 05/20/2023 08:34:25 Past Encounters Encounter ID Performer Location Encounter Start Date Encounter Closed Date Diagnosis/Indication Diagnosis SNOMED-CT Code Diagnosis ICD10 Code Diagnosis Note [id number] [address] [address] 06/10/2017 13:44:38 06/10/2017 15:04:45 [id number] [address] [facility] [place] [address] 10/15/2019 14:46:06 10/15/2019 15:21:06 [id number] [address] [facility] [place] [address] 12/23/2015 15:01:16 12/23/2015 15:33:51 [id number] [address] [facility] [place] [address] 09/26/2018 15:26:55 09/26/2018 16:30:37 [id number] [address] [facility] [place] [address] 12/10/2015 15:37:10 12/10/2015 16:04:06 [id number] Carly Krueger MD [address] [facility] [place] [address] 05/20/2023 08:29:54 05/20/2023 09:36:13 Contusion of right great toe [id number] 6809294 S90.111A Closed fra cture of proximal phalanx of great toe 466938201 S92.414A Health Concerns Section Related Observation LastModified by Organization Detai ls LastModified Time None Recorded Concern Status LastModified by Organization Details LastModified Time None Recorded Advance Directives Directive None Recorded Payers Encounter Date Sequence Insurance Name Policy Number Policy Howard Covered Member ID Howard Member ID Guarantor Name 12/23/2015 1 [facility] [id number] Pratibha Burdick [id number] Pratibha Burdick 06/10/2017 1 [facility] [id number] Pratibha Burdick [id number] Pratibha Burdick 09/26/2018 1 [facility] [id number] Pratibha Burdick [id number] Pratibha Burdick 10/15/2019 1 [facility] [id number] Pratibha Burdick [id number] 1 [id number] Pratibha Burdick 05/20/2023 1 [facility] [id number] Pratibha Burdick [id number] 1 [id number] Pratibha Burdick Notes Date Note Type [...] Carly Krueger MD [address] [place], [address], [place] - [facility] 05/20/2023 12:34:15 OBGyn Episode No OBEpisode recorded.
--- OUTSIDE RECORDS SUMMARY | 2025-02-18 11:57 | XMS_ITS | Clinical Summary ---
Author Organization [facility] Address [address] [place] [address] Care Team Providers Care Fiber Worker Name Role Phone Shoshana Hunter MD Primary Care Provider [phone] Social History Tobacco Use Types Packs/Day Years [...] age to complete this topic Care Teams Fiber Worker Relationship Specialty Start Date End Date Shoshana Hunter MD [address] [place] [id number] PCP - General Internal Medicine 01/14/21
--- OUTSIDE RECORDS SUMMARY | 2025-02-18 11:57 | XMS_ITS | Clinical Summary ---
Author Organization [facility] Address [address] [place] [address] Care Team Providers Care Stem Sizer Name Role Phone Shoshana Hunter MD Primary Care Provider [phone] Surgical History Surgery Date Site/Laterality Comments TUBAL [...] age to complete this topic Care Teams Stem Sizer Relationship Specialty Start Date End Date Shoshana Hunter MD [address] [facility] [address] PCP - General Internal Medicine 01/14/21
== END 2025-02-18 12:32 | disposition home or self-care (01) ==
LOC: HO.HGI 10:23
PROVIDERS: PCP Internal Medicine; Visit Provider Nurse Practitioner Family
DX: K59.00 Constipation, unspecified (principal); Z12.11 Encounter for screening for malignant neoplasm of colon; Z86.0101 Personal history of adenomatous and serrated colon polyps
CPT/HCPCS: 99213

== ENCOUNTER 2025-03-27 13:03 | Outpatient (REF) | payer OTHER, SELFPAY ==
--- NOTE | ~2025-03-27 | MM_ITS ---
EXAMINATION: MM SCREENING DIGITAL BREAST TOMOSYNTHESIS, LEFT CLINICAL INFORMATION: Screening. Asymptomatic. Right mastectomy. COMPARISON: Mammography: Available priors on PACS. TECHNIQUE: Digital breast tomosynthesis is performed in both the craniocaudal and mediolateral oblique views along with computer-aided detection (CAD). Synthesized 2D images are generated from the tomosynthesis. FINDINGS: The breasts are heterogeneously dense, which may obscure small masses (ACR BI-RADS breast composition Category c). There are no significant masses, abnormal calcifications, or other abnormalities. MM/MM tomosynthesis screening LT IMPRESSION: No mammographic evidence of malignancy. ASSESSMENT: BI-RADS BI-RADS 1 - Negative RECOMMENDATION: Routine annual mammography screening. 1 year F/U This examination should not preclude the clinical evaluation of a suspicious palpable abnormality. This patient's information was entered into a reminder system with a target due date for their next mammogram. Electronically signed by: Josefa Lainez DO 03/30/2025 08:08 PM EDT
--- OUTSIDE RECORDS SUMMARY | 2025-03-27 15:15 | XMS_ITS | Data Portability ---
Author Organization [facility], [address] Address [address] [place] [address] Care Team Providers Care Territory Account Manager Name Role Phone JONY MICHAEL Primary Care Provider Assessment No assessment recorded. Plan of Treatment Reminders Order Date Submit Date Provider Last Modified By Organization Details Last Modified Time Details Appointments None recorded . Lab None recorded . [facility] [address] [facility] [place], [address], 3 10:59:07 Procedures None recorded . Surgeries applicat ion of naif tape/spl int, phalanx (toe) (SURG) 2022 023 [email or web address] 26 Not available 3 08:47:35 Imaging XR, toe(s), 2 or more view - right 2022 023 [facility], [address] [place] [address], [address], 3 09:43:39 Medication Orders None recorded . Patient TargetsNo targets recorded. Patient Instructions Encounter Date Encounter Id Patient Instructions Last Modified By Organization Details Last Modified Time 05/20/2023 [id number] broken toe: care instructions [email or web address] Not available 05/20/2023 09:27:42 Keep toe naif taped as instructed. Wear the cast shoe while walking. Elevate your foot as much as possible. Follow-up with your doctor in one week. Over the counter tylenol or ibuprofen may be taken for pain per package instructions as needed. See printed instructions. Seek Emergency Medical evaluation for any worsening symptoms. [email or web address] Not available 05/20/2023 09:27:41 Patient contacte d after official radiology report returned and orthopedic referral made to [facility] for her. Not available 05/20/2023 10:49:19 Reason for Referral [...] more view No observ ation record ed. [email or web address] [facility] [address] [place], [address], 05/20/2023 10:49:56 Result Notes None recorded. Problems No Known Problems Procedures Surgical History Date Name Laterality Status Provider Name and Address Organization Details Recorded Time NAIF TAPE completed Carly Krueger MD [address] [place], [address], [place] - [facility] 05/20/2023 09:34:42 excision of breast completed Radha Britt PA - [facility] 05/20/2023 08:36:36 Imaging Results None recorded. Procedure Notes None recorded. Medical Equipment None [...] Last Updated DateTime 170.18 cm 23.5 kg/m2 77057.8 6 g 98 % 98 % 81 /min 18 /min 96.3 [degF] 129 mm[Hg] 82 mm[Hg] Radha Britt Opposing Views 08:35:25 Social History Question Answer Notes LastModified by Spodly Details LastModified Time Tobacco Smoking Status Current Every Day Smoker Radha corrigan Opposing Views 05/20/2023 08:35:07 Have You Had Direct Contact, Or Contact During Intimacy, With Monkeypox Rash, Scabs, Or Body Fluids From A Person With Monkeypox? No Information not available 05/20/2023 How Much Tobacco Do You Smoke? 1 PPW Information not available 05/20/2023 Have You Recently Traveled Abroad? No Information not available 05/20/2023 Sex: Unknown Functional Status Question Answer Note LastModified by Spodly Details LastModified Time Do you use any illicit or recreational drugs? No Information not available 05/20/2023 Do you or have you ever used any other forms of tobacco or nicotine? No Information not available 05/20/2023 What is your level of alcohol consumption? Occasional Socially Information not available 05/20/2023 Mental Status None recorded. Family History Relationship [...] split virus, quadrivalent, preservative 8 completed Radha [place] null, PA - [facility] 05/20/2023 08:34:25 Influenza, split virus, quadrivalent, preservative 6 completed Radha Balwinder null, PA - [facility] 05/20/2023 08:34:25 Influenza, split virus, quadrivalent, preservative 9 completed Radha Balwinder null, PA - [facility] 05/20/2023 08:34:25 Influenza, MDCK, quadrivalent, PF 7 completed Radha [place] null, PA - [facility] 05/20/2023 08:34:25 Tdap 8 completed Radha [place] null, PA - [facility] 05/20/2023 08:34:25 Td (adult), 2 Lf tetanus toxoid, preservative free, adsorbed 6 completed Radha [place] null, PA - [facility] 05/20/2023 08:34:25 Td (adult), 2 Lf tetanus toxoid, preservative free, adsorbed 9 completed Radha [place] null, PA - [facility] 05/20/2023 08:34:25 Past Encounters Encounter ID Performer Location Encounter Start Date Encounter Closed Date Diagnosis/Indication Diagnosis SNOMED-CT Code Diagnosis ICD10 Code Diagnosis Note [id number] [address] [place] [address] 06/10/2017 13:44:38 06/10/2017 15:04:45 [id number] [address] [place] [address] 10/15/2019 14:46:06 10/15/2019 15:21:06 [id number] [address] [place] [address] 12/23/2015 15:01:16 12/23/2015 15:33:51 [id number] [address] [place] [address] 09/26/2018 15:26:55 09/26/2018 16:30:37 [id number] [address] [place] [address] 12/10/2015 15:37:10 12/10/2015 16:04:06 [id number] Carly Krueger MD [address] [place] [address] 05/20/2023 08:29:54 05/20/2023 09:36:13 Contusion of right great toe [id number] 4853610 S90.111A Closed fra cture of proximal phalanx of great toe 722667802 S92.414A Health Concerns Section Related Observation LastModified by Organization Detai ls LastModified Time None Recorded Concern Status LastModified by Organization Details LastModified Time None Recorded Advance Directives Directive None Recorded Payers Insurance Date Sequence Insurance Name Policy Number Policy Howard Covered Member ID Howard Member ID Guarantor Name 05/21/2023 1 [facility] [id number] Pratibha Burdick [id number] Pratibha Burdick Notes Date Note Type Note [...] bearing as well. Carly Krueger MD [address] [facility] [place], [address], [place] - [facility] 05/20/2023 12:34:15 OBGyn Episode No OBEpisode recorded.
== END 2025-03-27 13:04 | disposition home or self-care (01) ==
LOC: HO.MAMMO 13:03
PROVIDERS: PCP Internal Medicine; Visit Provider Internal Medicine
DX: Z12.31 Encounter for screening mammogram for malignant neoplasm of breast (principal)
CPT/HCPCS: 77063; 77067

== ENCOUNTER → 2025-03-27 13:15 | Outpatient (BNV) | payer OTHER, SELFPAY | PROVIDERS: PCP Internal Medicine; Visit Provider Internal Medicine | DX: Z12.31 Encounter for screening mammogram for malignant neoplasm of breast (principal) | CPT/HCPCS: 77063; 77067 ==

== ENCOUNTER 2025-07-03 13:40 | Outpatient (AMB) | payer OTHER, SELFPAY ==
--- OUTSIDE RECORDS SUMMARY | 2016-03-22 | XMS_ITS | Encounter Summary ---
Author Organization [facility] Address [address] [place] [address] [place] [address] Phone Care Team Providers Care Dealer Sales Manager Name Role Phone Unavailable Primary Care Provider Unavailabl e Encounter Details Date Type Department Care Team (Late st Contact Info) Description 03/22/2016 Hospital Encounter [facility] IM OUTSIDE IMG [address] [place] [address] System, Provider Not In, PhD [facility] [address] [address] Unknown, Unknown, Social History Tobacco Use Types Packs/Day Years Used Date Smoking Tobacco: Every Day Cigarettes 0.3 50.7 Started: 1975 Smokeless Tobacco: Never Quit: 06/03/2016 [...] high school, GED, job training, learning the Cay[place] Islander language, technical skills, or developing parenting skills)? [...] (No Interpretation) (03/22/2016 12:00 AM EDT) Narrative [facility] IMG INTERFACES - 05/11/2016 10:41 AM EDT This study is for PACS storage only and not for interpretation. Procedure Note SYSTEMGENERATED, DOCUMENTATION - 05/11/2016 This study is for PACS storage only and not for interpretation. us Provider Not In System PhD IMG OUTSIDE IMAGING W /OUT INTERPRETATION Final Result [facility] IMG INTERFACES documented in this encounter Visit Diagnoses Not on filedocumented in this encounter Additional Source Comments The information contained in this document represents components of the legal health record. It is not the complete legal health record.[facility]
--- OUTSIDE RECORDS SUMMARY | 2016-04-14 | XMS_ITS | Encounter Summary ---
Author Organization [facility] Address [address] [place] [address] [place] [address] Phone Care Team Providers Care Tobacco Stemmer Name Role Phone Unavailable Primary Care Provider Unavailabl e Encounter Details Date Type Department Care Team (Late st Contact Info) Description 04/14/[address] [facility] IM OUTSIDE IMG [address] [place] [address] System, Provider Not In, [facility] [address] [address] Unknown, Unknown, Social History Tobacco Use Types [...] high school, GED, job training, learning the Turkmen language, technical skills, or developing parenting skills)? [...] (No Interpretation) (04/14/2016 12:00 AM EDT) Narrative [facility] IMG INTERFACES - 05/11/2016 10:39 AM EDT This study is for PACS storage only and not for interpretation. Procedure Note SYSTEMGENERATED, DOCUMENTATION - 05/11/2016 This study is for PACS storage only and not for interpretation. us Provider Not In System PhD IMG OUTSIDE IMAGING W /OUT INTERPRETATION Final Result [facility] IMG INTERFACES documented in this encounter Visit Diagnoses Not on filedocumented in this encounter Additional Source Comments The information contained in this document represents components of the legal health record. It is not the complete legal health record.[facility]
--- OUTSIDE RECORDS SUMMARY | 2016-04-21 | XMS_ITS | Encounter Summary ---
Author Organization [facility] Address [address] [place] [address] [place] [address] Phone Care Team Providers Care Hand Lacer Name Role Phone Unavailable Primary Care Provider Unavailabl e Encounter Details Date Type Department Care Team (Late st Contact Info) Description 04/21/2016 Hospital Encounter [facility] IMG OUTSIDE IMG [address] [place] [address] Coleen Ann MD [address] [address] [email or web address] Social History Tobacco Use Types Packs/Day Years [...] Or Consult (04/21/2016 12:00 AM EDT) Impressions [facility] - 06/01/2016 3:11 PM EDT IMPRESSION: [...] been entered into a reminder system. Narrative [facility] - 06/01/2016 3:11 PM EDT INTERPRETATION [...] is made with the previous examinations from [place] dated 05/03/2016, 04/21/2016, 04/14/16 and 03/22/2016 . [...] INTE RPRETATION Final Result Performing Organization Address City/State/[facility] Co de Phone Number [facility] [address] [facility] [place] [address] documented in this encounter Visit Diagnoses Diagnosis Breast cancer, right documented in this encounter Additional Source Comments The information contained in this document represents components of the legal health record. It is not the complete legal health record.[facility]
--- OUTSIDE RECORDS SUMMARY | 2016-04-21 00:15 | XMS_ITS | Encounter Summary ---
Author Organization [facility] Address [address] [place] [address] [place] [address] Phone Care Team Providers Care Speedboat Operator Name Role Phone Unavailable Primary Care Provider Unavailabl e Encounter Details Date Type Department Care Team (Late st Contact Info) Description 04/21/2016 12:15 AM EDT Hospital Encounter [facility] IMG OUTSIDE IMG [address] [place] [address] Coleen Ann MD [address] [address] [email or web address] Social History Tobacco Use Types Packs/Day [...] Or Consult (04/21/2016 12:15 AM EDT) Impressions [facility] - 06/01/2016 3:11 PM EDT IMPRESSION: [...] been entered into a reminder system. Narrative [facility] - 06/01/2016 3:11 PM EDT INTERPRETATION [...] is made with the previous examinations from [place] dated 05/03/2016, 04/21/2016, 04/14/16 and 03/22/2016 . [...] OUTSIDE IMAGING W/ INTE RPRETATION Final Result [facility] [address] [facility] [address] documented in this encounter Visit Diagnoses Diagnosis Breast cancer, right documented in this encounter Additional Source Comments The information contained in this document represents components of the legal health record. It is not the complete legal health record.[facility]
--- OUTSIDE RECORDS SUMMARY | 2016-04-21 00:30 | XMS_ITS | Encounter Summary ---
Author Organization [facility] Address [address] [place] [address] [place] [phone] Phone Care Team Providers Care Security Representative Name Role Phone Unavailable Primary Care Provider Unavailabl e Encounter Details Date Type Department Care Team (Late st Contact Info) Description 04/21/2016 12:30 AM EDT Hospital Encounter [facility] IMG OUTSIDE IM [address] [place] [address] System, Provider Not In, [facility] [address] [address] Unknown, Unknown, Social History Tobacco Use Types [...] high school, GED, job training, learning the Belizean language, technical skills, or developing parenting skills)? [...] (No Interpretation) (04/21/2016 12:30 AM EDT) Narrative [facility] IMG INTERFACES - 05/11/2016 10:37 AM EDT This study is for PACS storage only and not for interpretation. us Provider Not In System PhD IMG OUTSIDE IMAGING W /OUT INTERPRETATION Final Result [facility] IMG INTERFACES documented in this encounter Visit Diagnoses Not on filedocumented in this encounter Additional Source Comments The information contained in this document represents components of the legal health record. It is not the complete legal health record.[facility]
--- OUTSIDE RECORDS SUMMARY | 2016-05-03 | XMS_ITS | Encounter Summary ---
Author Organization [facility] Address [address] [place] [address] [place] [address] Phone Care Team Providers Care Cell Phone Repair Technician Name Role Phone Unavailable Primary Care Provider Unavailabl e Encounter Details Date Type Department Care Team (Late st Contact Info) Description 05/03/2016 Hospital Encounter [facility] IM OUTSIDE IMG [address] [place] [address] System, Provider Not In, [facility] [address] [address] Unknown, Unknown, Social History Tobacco Use Types [...] high school, GED, job training, learning the Andorran language, technical skills, or developing parenting skills)? [...] (No Interpretation) (05/03/2016 12:00 AM EDT) Narrative [facility] IMG INTERFACES - 05/11/2016 10:36 AM EDT This study is for PACS storage only and not for interpretation. us Provider Not In System PhD IMG OUTSIDE IMAGING W /OUT INTERPRETATION Final Result [facility] IMG INTERFACES documented in this encounter Visit Diagnoses Not on filedocumented in this encounter Additional Source Comments The information contained in this document represents components of the legal health record. It is not the complete legal health record.[facility]
--- NOTE | 2025-07-03 13:55 | MHC.PC.OV ---
Vital Signs 07/03/25 14:03 Height 5 ft 7 in Weight 130 lb BMI 20.4 BP 112/80 Blood Pressure Location Lt brachial Position Sitting Respiration 16 Pulse 64 Pulse Source Pulse Oximeter Temp 97.9 F Temp Source Oral Pulse Oximetry (%) 96 Oxygen Delivery Method Room Air Intake Visit Reasons: Arthritis Intake Note: Pt is here today c/o Rt shoulder pain: pain worse with repetitive motion no injury noted Allergies No Known Allergies (No Known Allergies*) Allergy (Verified 07/03/25 14:15) Medication List - Last Reconciled 07/03/25 by Shoshana Hunter MD ascorbate calcium (vitamin C) 500 mg PO DAILY bupropion HCl SR 150 mg PO QAM calcium carbonate (Calcium 500) 500 mg PO DAILY cholecalciferol (vitamin D3) 25 mcg PO DAILY diclofenac sodium 1% (Arthritis Pain (diclofenac)) 2 grams topical QID hydroxyzine HCl 12.5 - 25 mg PO BID PRN multivitamin 1 tab PO DAILY Tobacco use date assessed: 07/03/25 Fall risk assessment: No Falls in past year Last assessed Fall Risk: 07/03/25 Dental Screening Dental Screen Date: 07/03/25 Did you have a dental visit in the last 12 months?: No Did you have a dental problem in the last 6 months where you did not have access to dental care?: No Was dental information given to patient?: Patient has dentist HPI Arthritis HPI Details 65-year-old lady here today complaining of acute onset of pain in right upper arm which initially started on top of her right shoulder, radiating to the right biceps area. Denies any history of trauma, does not sleep on her right side, no accompanying weakness, no numbness or tingling in right upper extremity. Has been only taking Tylenol which affords no significant relief. [facility] Medical History Environmental and seasonal allergies Claustrophobia History of ductal carcinoma in situ (DCIS) of breast (~2015) Hepatitis C Tubular adenoma of colon (~2021) Osteopenia of left femoral neck (~2015) Nicotine dependence, cigarettes, uncomplicated Depression with anxiety History of varicose veins Spondylosis of lumbar region without myelopathy or radiculopathy History of COVID-19 Vaccination refused by patient Surgical History History of colonoscopy History of esophagogastroduodenoscopy (EGD) History of right mastectomy History of right breast biopsy History of endometrial ablation History of tubal ligation Family History Father CAD (coronary artery disease) Mother Medical history non-contributory Brother No problems noted. Sister No problems noted. Daughter No problems noted. Social History Housing: House Are you a primary day care director to a significant other at home: No Do you presently have visiting nurse or other home services: No Alcohol intake: current Alcohol intake frequency: holidays/special occasions only Patient Tobacco Use Status: Current someday Tobacco user Tobacco use type: Cigarette Cigarette Packs Per Day: 0 Cigarettes Per Day: 2 Years Smoked: (onset 13yo, 1/2ppd x 51yrs, now 2cig/day - 25pyh) Packs Per Year: 0 Packs per year/per ci.00 e-Cigarette/Vaping Use: Never Used service: No Current occupational status: employed Sexual orientation: Straight/Heterosexual Gender identity: Female Cognitive needs: No Hearing needs: No Vision needs: No Questionnaire PHQ-9 Over the last 2 weeks, how often have you been bothered by any of the following problems? 1. Little interest or pleasure in doing things: more than half the days 2. Feeling down, depressed, or hopeless: more than half the days 3. Trouble falling or staying asleep, or sleeping too much: more than half the days 4. Feeling tired or having little energy: more than half the days 5. Poor appetite or overeating: several days 6. Feeling bad about yourself - or that you are a failure or have let yourself or your family down: several days 7. Trouble concentrating on things, such as reading the newspaper or watching television: several days 8. Moving or speaking so slowly that other people could have noticed. Or the opposite - being so fidgety or restless that you have been moving around a lot more than usual: not at all 9. Thoughts that you would be better off or of hurting yourself in some way: not at all Total score: 11 Depression Screening Interpretation: Positive (Followed by SARAH MEEKS at [facility]) Depression Screening Follow-up: Existing condition, In treatment and Community Mental Health Worker F/U Depression Screening Done: Yes Source: Developed by Drs. Piyush Crandall, Melania Cunningham, Aleksander Lira and colleagues, with an educational claudio from [employer]. Thrive Questionnaire Date Thrive assessed: 02/10/25 I am a: Patient What is your living situation today?: I have a steady place to live Within the past 12 months, did the food you bought not last and you didn't have the money to get more?: I choose not to answer this question Within the past 12 months, did you worry whether your food would run out before you got money to buy more?: I choose not to answer this question Do you have trouble paying for medicines?: I choose not to answer this question Do you have trouble getting transportation to medical appointments?: No Do you have trouble paying your heating and electricity bill?: No Do you have trouble taking care of your child, family member or friend?: No Do you have trouble with day-to-day activities such as bathing, preparing meals, shopping, managing finances, etc.?: No Are you currently unemployed and looking for a job?: No Are you interested in more education?: No Please select the resources that you would like help with: None THRIVE Score: 0 AUDIT C Alcohol Use Questionnaire (AUDIT-C) 1. How often do you have a drink containing alcohol?: 2-4 times a month 2. How many drinks containing alcohol do you have on a typical day when you are drinking?: 3 or 4 3. How often do you have six or more drinks on one occasion?: Never Total Score: 3 CITLALLI-7 AMB Questionnaire CITLALLI-7 Date CITLALLI - 7 assessed: 11/15/24 Feeling nervous, anxious, or on edge: 2 = More than half the days Not being able to stop or control worryin = Several days Worrying too much about different things: 2 = More than half the days Trouble relaxin = More than half the days Being so restless that it is hard to sit still: 1 = Several days Becoming easily annoyed or irritable: 1 = Several days Feeling afraid as if something awful might happen: 1 = Several days Total CITLALLI-7 score (0-4 normal; 5-9 mild; 10-14 moderate; 15-21 severe): 10 Source: Developed by Drs. Piyush Crandall, Melania Cunningham, Aleksander Lira and colleagues, with an educational claudio from [employer]. Review of Systems Const All systems reviewed & are unremarkable except as noted in HPI and below Reports no additional complaints Physical exam (Primary Care) Vital Signs: Last Vital Signs Temp 97.9 F 07/03/25 14:03 Pulse 64 07/03/25 14:03 Resp 16 07/03/25 14:03 BP 112/80 07/03/25 14:03 Pulse Ox 96 07/03/25 14:03 Oxygen Delivery Method Room Air 07/03/25 14:03 BMI result Body Mass Index 20.4 Tobacco/Smoking Status: Tobacco use Status Tobacco use date assessed 07/03/25 07/03/25 14:11 Patient Tobacco Use Status Current someday Tobacco 07/03/25 13:56 Tobacco use type Cigarette 07/03/25 13:56 e-Cigarette/Vaping Use Never Used 07/03/25 13:56 PHQ-9: PHQ-9 Score PHQ-9: Total score 11 07/03/25 14:03 Depression Screening Interpretation: Positive (Followed by SARAH MEEKS at [facility]) Depression Screening Follow-up: Existing condition, In treatment and Community Mental Health Worker F/U Thrive Assessment: Date of Thrive Assessment Date Thrive assessed 02/10/25 07/03/25 13:56 Const Other: Alert oriented x3, no acute distress ambulatory normal gait Neck Neck: Yes full ROM, Yes no lymphadenopathy and Yes supple Skin Lesions: no lesions Rashes: no rashes Extrem Other: Full range of motion in all extremities except for right upper arm, with pain elicited on right biceps on abduction more than 90 degrees. Negative impingement sign. General: Yes normal to inspection, Yes no joint enlargement, Yes no clubbing, cyanosis or edema and Yes normal gait Coding Level of Care Code Est Pt Level 4 (48654) Diagnoses Muscle strain of right shoulder S46.911A Assessment & Plan Assessment & Plan (1) Muscle strain of right shoulder: Code(s): S46.911A - Strain of unspecified muscle, fascia and tendon at shoulder and upper arm level, right arm, initial encounter Plan: Stopped taking Tylenol arthritis, may take meloxicam 50 mg per tablet once a day only as needed for severe pain. You may also try massaging Advil cream to affected area once or twice a day as needed, but do not mix meloxicam and Advil cream together. call if no improvement after 10 days Medications: New meloxicam 15 mg PO DAILY 30 tabs 0RF right upper arm pain Discontinued diclofenac sodium 1% (Arthritis Pain (diclofenac)) apply to single elbow, wrist or hand; for hand includes palm/fingers/back of hand Discontinued Reason: Doctor's Order 2 grams topical QID 100 grams 0RF
[2025-07-03 14:03] VITALS: BP 112/80; PULSE 64; RESP 16; TEMP 36.6; O2SAT 96; BMI 20.4
--- OUTSIDE RECORDS SUMMARY | 2025-07-03 17:31 | XMS_ITS | Clinical Summary ---
Author Organization [facility] Address [address] [place] [address] Care Team Providers Care Promotions Executive Name Role Phone Shoshana Hunter MD Primary Care Provider [phone] Social History Tobacco Use Types Packs/Day Years [...] Tdap / Td (1 - Tdap) 1978 Colon Cancer Screening (Colonoscopy) 2004 Breast Cancer Screening (Mammogram) 2009 Shingrix-Zoster Vaccine (1 of 2) 2009 Fall Risk Assessment 2024 Osteoporosis Screening (DEXA Scan) 2024 Pneumococcal Vaccine (1 of 1 - PCV) 2024 Influenza Vaccine (#1) 2025 RSV Adult > 60+ Yrs or Pregn ant (1 - 1-dose 75+ series) 2034 Hepatitis B Vaccines Aged Out No long er eligible based on patient's age to complete this topic RSV Ped < 20 months Aged Out No longe r eligible based on patient's age to complete this topic Care Teams Promotions Executive Relationship Specialty Start Date End Date Shoshana Hunter MD [address] [place] [id number] PCP - General Internal Medicine 01/14/21
--- OUTSIDE RECORDS SUMMARY | 2025-07-03 17:31 | XMS_ITS | Encounter Summary ---
Author Organization Located Within [facility] Address [address] [place] [address] [place] [address] Phone Care Team Providers Care Pharmacist Hospital Name Role Phone Shoshana Hunter MD Primary Care Provider Shoshana Hunter MD Unavailable [phone] Encounter Details Date Type Department Care Team (Late st Contact Info) Description 07/22/2019 Ancillary Orders [facility] Central Scheduling [address] [place] [address] Amy Oconnor MD [address] [place] [id number] [email or web address] Visit for screening mammogram Social History Tobacco Use Types Packs/Day Years Used Date Smoking Tobacco: Some Days Cigarettes Smokeless Tobacco: Former Quit: 06/03/2016 Alcohol Use Standard Drinks/Week Comments Yes 8 (1 standard drink = 0.6 oz pur e alcohol) Comments No Sex and Gender Information Value Date Recorded Sex Assigned at Female 02/27/2025 4:26 PM EDT Legal Sex Female 12:35 PM EDT Gender Identity Female 02/27/2025 4:26 PM EDT Sexual Orientation Straight 02/27/2025 4: 26 PM EDT documented as of this encounter Plan of Treatment Not on file documented as of this encounter Results * BI MAMMOGRAM SCREENING WITH TOMOSYNTHESIS WITH CAD (LEFT) (07/22/2019 3:26 PM EDT) Anatomical Region Laterality Modality Breast Left, Breast Bilateral Left Ma mmography Impressions 07/26/2019 5:18 PM EDT No evidence of malignancy. Routine screening mammography is recommended in one year. The patient will be advised of these findings via the USPS. OVERALL Assessment: BI-RADS 1 Negative. The recommendation above has been entered into a reminder system to monitor and facilitate patient compliance. Narrative 07/26/2019 5:18 PM EDT BI MAMMOGRAM SCREENING WITH TOMOSYNTHESIS WITH CAD (LEFT) HISTORY: The patient presents for annual mammography. Status post right mastectomy in 2015. COMPARISON: Comparison is made with the previous examination dated 06/29/2018 and dating as far back as 06/01/2016 . Routine CC and MLO views were performed. The examination was performed using digital mammography, tomosynthesis, and computer aided detection. The breast tissue is heterogeneously dense, an appearance which lowers the sensitivity of mammography. No suspicious masses, suspicious calcifications, areas of distortion or other signs of malignancy are identified. Procedure Note Ernestina Cardenas MD - 07/26/2019 BI MAMMOGRAM SCREENING WITH TOMOSYNTHESIS WITH CAD (LEFT) HISTORY: The patient presents for annual mammography. Status post rightmastectomy in 2015. COMPARISON: Comparison is made with the previous examination dated06/29/2018 and dating as far back as 06/01/2016 . Routine CC and MLO views were performed. The examination was performed using digital mammography, tomosynthesis,and computer aided detection. The breast tissue is heterogeneously dense, an appearance which lowersthe sensitivity of mammography. No suspicious masses, suspiciouscalcifications, areas of distortion or other signs of malignancy areidentified. IMPRESSION: No evidence of malignancy. Routine screening mammography isrecommended in one year. The patient will be advised of these findings via the USPS. OVERALL Assessment: BI-RADS 1 Negative. The recommendation above has been entered into a reminder system tomonitor and facilitate patient compliance. Amy Oconnor MD IMG MG EXAMS Final R esult documented in this encounter Visit Diagnoses Diagnosis Visit for screening mammogram Visit for screening mammogram documented in this encounter Care Teams Pharmacist Hospital Relationship Specialty Start Date End Date Shoshana Hunter MD [address] [place] [address] PCP - General Internal Medicine 05/09/16 Shoshana Hunter MD [address] [place] [address] Referring Physician Internal Medicine 02/27/25 documented as of this encounter Additional Source Comments The information contained in this document represents components of the legal health record. It is not the complete legal health record.[facility]
--- OUTSIDE RECORDS SUMMARY | 2025-07-03 17:31 | XMS_ITS | Encounter Summary ---
Author Organization [facility] Address [address] [place] [address] [place] [address] Phone Care Team Providers Care Compact Assembler Name Role Phone Shoshaan Hunter MD Primary Care Provider Shoshana Hunter MD Unavailable [phone] Encounter Details Date Type Department Care Team (Late st Contact Info) Description 10/01/2019 Procedure Pass [facility] PERIOPERATIVE DEPT [address] [place] [address] Social History Tobacco Use Types Packs/Day Years [...] on file documented as of this encounter Visit Diagnoses Not on filedocumented in this encounter Care Teams Compact Assembler Relationship Specialty Start Date End Date Shoshana Hunter MD [address] [facility] [place] [address] PCP - General Internal Medicine 05/09/16 Shoshana Hunter MD [address] [place] [address] [place] [address] Referring Physician Internal Medicine 02/27/25 documented as of this encounter Additional Source Comments The information contained in this document represents components of the legal health record. It is not the complete legal health record.[facility]
--- OUTSIDE RECORDS SUMMARY | 2025-07-03 17:31 | XMS_ITS | Encounter Summary ---
Author Organization [facility] Address [address] [place] [address] [place] [address] Phone Care Team Providers Care Senior Data Warehouse Architect Name Role Phone Shoshana Hunter MD Primary Care Provider Shoshana Hunter MD Unavailable [phone] Encounter Details Date Type Department Care Team (Late st Contact Info) Description 07/08/2019 Ancillary Orders [facility] Central Scheduling [address] [place] [address] Amy Oconnor MD [address] [place] [address] [email or web address] Visit for screening mammogram Social History Tobacco [...] documented as of this encounter Visit Diagnoses Diagnosis Visit for screening mammogram documented in this encounter Care Teams Senior Data Warehouse Architect Relationship Specialty Start Date End Date Shoshana Hunter MD [address] [facility] [place] [address] PCP - General Internal Medicine 05/09/16 Shoshana Hunter MD [address] [facility] [place] [address] Referring Physician Internal Medicine 02/27/25 documented as of this encounter Additional Source Comments The information contained in this document represents components of the legal health record. It is not the complete legal health record.[facility]
--- OUTSIDE RECORDS SUMMARY | 2025-07-03 17:31 | XMS_ITS | Encounter Summary ---
Author Organization [facility] Address [address] [place] [address] [place] [address] Phone Care Team Providers Care Tabulating Supervisor Name Role Phone Shoshana Hunter MD Primary Care Provider Shoshana Hunter MD Unavailable Encounter Details Date Type Department Care Team (Late st Contact Info) Description 12/15/2020 Procedure Pass [facility]- Breast [facility], [facility] [address] [place] [address] Social History Tobacco Use Types Packs/Day Years [...] on filedocumented in this encounter Care Teams Tabulating Supervisor Relationship Specialty Start Date End Date Shoshana Hunter MD [address] [facility] [place] [address] PCP - General Internal Medicine 05/09/16 Shoshana Hunter MD [address] [place] [address] [place] [address] Referring Physician Internal Medicine 02/27/25 documented as of this encounter Additional Source Comments The information contained in this document represents components of the legal health record. It is not the complete legal health record.[facility]
--- OUTSIDE RECORDS SUMMARY | 2025-07-03 17:31 | XMS_ITS | Encounter Summary ---
Author Organization [facility] Address [address] [place] [address] [place] [phone] Phone Care Team Providers Care Underground Conduit Installer Name Role Phone Shoshana Hunter MD Primary Care Provider Shoshana Hunter MD Unavailable [phone] Encounter Details Date Type Department Care Team (Late st Contact Info) Description 07/08/2019 Ancillary Orders [facility], [facility], [facility] [place] [address] [place] [address] Amy Oconnor MD [address] [place] [address] [email or web address] Social History Tobacco Use Types Packs/Day Years [...] on filedocumented in this encounter Care Teams Underground Conduit Installer Relationship Specialty Start Date End Date Shoshana Hunter MD [facility] [place] [address] PCP - General Internal Medicine 05/09/16 Shoshana Hunter MD [address] [facility] [place] [address] Referring Physician Internal Medicine 02/27/25 documented as of this encounter Additional Source Comments The information contained in this document represents components of the legal health record. It is not the complete legal health record.[facility]
--- OUTSIDE RECORDS SUMMARY | 2025-07-03 17:31 | XMS_ITS | Encounter Summary ---
Author Organization [facility] Address [address] [place] [address] Phone Care Team Providers Care Dial Screw Assembler Name Role Phone Shoshana Hunter MD Primary Care Provider Shoshana Hunter MD Unavailable [phone] Reason for Visit * Reason Onset Date Comments Post Discharge Follow Up Call 06/21/2016 Encounter Details Date Type Department Care Team (Late st Contact Info) Description 06/21/2016 Telephone [facility] ADMINISTRATIVE [address] [place] [address] Gabriela Blackwell RN [address] [place] [address] [email or web address] Discharge Follow Up Call Social History Tobacco Use Types Packs/Day Years [...] on filedocumented in this encounter Care Teams Dial Screw Assembler Relationship Specialty Start Date End Date Shoshana Hunter MD [facility] [place] [address] PCP - General Internal Medicine 05/09/16 Shoshana Hunter MD [address] [facility] [address] Referring Physician Internal Medicine 02/27/25 documented as of this encounter Additional Source Comments The information contained in this document represents components of the legal health record. It is not the complete legal health record.[facility]
--- OUTSIDE RECORDS SUMMARY | 2025-07-03 17:31 | XMS_ITS | Encounter Summary ---
Author Organization [facility] Address [address] [place] [address] [place] [address] Phone Care Team Providers Care Journeyman Pipefitter Name Role Phone Shoshana Hunter MD Primary Care Provider Shoshana Hunter MD Unavailable [phone] Encounter Details Date Type Department Care Team (Late st Contact Info) Description 06/23/2020 Procedure Pass [facility], [facility] [address] [place] [address] Social History Tobacco Use Types Packs/Day Years [...] on filedocumented in this encounter Care Teams Journeyman Pipefitter Relationship Specialty Start Date End Date Shoshana Hunter MD [facility] [place] [address] PCP - General Internal Medicine 05/09/16 Shoshana Hunter MD [address] [place] [address] [place] [address] Referring Physician Internal Medicine 02/27/25 documented as of this encounter Additional Source Comments The information contained in this document represents components of the legal health record. It is not the complete legal health record.[facility]
--- OUTSIDE RECORDS SUMMARY | 2025-07-03 17:31 | XMS_ITS | Encounter Summary ---
Author Organization [facility] Address [address] [place] [address] [place] [address] Phone Care Team Providers Care Bag End Sewer Name Role Phone Shoshana Hunter MD Primary Care Provider Shoshana Hunter MD Unavailable Encounter Details Date Type Department Care Team (Late st Contact Info) Description 05/22/2018 Procedure Pass [facility] PERIOPERATIVE DEPT [address] [place] [address] Social History Tobacco Use Types [...] on filedocumented in this encounter Care Teams Bag End Sewer Relationship Specialty Start Date End Date Shoshana Hunter MD [address] [place] [address] [place] [address] PCP - General Internal Medicine 05/09/16 Shoshana Hunter MD [facility] [place] [address] Referring Physician Internal Medicine 02/27/25 documented as of this encounter Additional Source Comments The information contained in this document represents components of the legal health record. It is not the complete legal health record.[facility]
--- OUTSIDE RECORDS SUMMARY | 2025-07-03 17:31 | XMS_ITS | Encounter Summary ---
Author Organization [facility] Address [address] [place] [address] [place] [address] Phone Care Team Providers Care Granite Sandblaster Apprentice Name Role Phone Shoshana Hunter MD Primary Care Provider Shoshana Hunter MD Unavailable [phone] Encounter Details Date Type Department Care Team (Late st Contact Info) Description 05/11/2020 Ancillary Orders [facility] Central Scheduling [address] [place] [address] Shoshana Hunter MD [facility] [place] [address] Visit for screening mammogram Social History Tobacco [...] mammogram documented in this encounter Care Teams Granite Sandblaster Apprentice Relationship Specialty Start Date End Date Shoshana Hunter MD [address] [facility] [place] [address] PCP - General Internal Medicine 05/09/16 Shoshana Hunter MD [address] [facility] [place] [address] Referring Physician Internal Medicine 02/27/25 documented as of this encounter Additional Source Comments The information contained in this document represents components of the legal health record. It is not the complete legal health record.[facility]
--- OUTSIDE RECORDS SUMMARY | 2025-07-03 17:31 | XMS_ITS | Patient Health Record ---
Author Organization [facility] Address [address] [facility] [place] [address] Care Team Providers Care Computer Bookkeeper Name Role Phone Dale MESA, Shoshana Wilkerson Primary Care Provider Un available Gloria Poe Unavailable [phone] Reason For Referral No Information Medications Medication SIG (Take, Route, Fr equency, Duration) Notes Start Date End Date Status Methadose Active Ibuprofen Active Methadone HCl Active oxyCODONE HCl 20 MG 0.5 tablet Orally every 6 hrs Active OxyCONTIN 20 MG 1 tablet Orally every 12 hrs Active Problems Problem Type SNOMED Code ICD Code Onset Dates Problem Status W/U Status Risk Notes Problem Acquired hammer toe of right foot (0015755711627 105) Other hammer toe(s) (acquired), right foot (M20.41) Active confirmed Problem Acquired hammer toe of left foot (5190046539225 103) Other hammer toe(s) (acquired), left foot (M20.42) Active confirmed Plan Of Treatment No Information Insurance Providers Payer Name Payer Address Payer Phone Subscriber Number Group Number Insured Name Patient Relationship to Insured Coverage Start Date Coverage End Date Cigna [address] [place] [phone] [id number] Pratibha Burdick Self - patient is the insured Medical (General) History Medical History History ICD Code Broken bones Back pains Cervical spondylosis without myelopathy Chronic pain syndrome 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
--- OUTSIDE RECORDS SUMMARY | 2025-07-03 17:31 | XMS_ITS | Encounter Summary ---
Author Organization [facility] Address [address] [place] [address] [place] [address] Phone Care Team Providers Care Director Semiconductor Name Role Phone Shoshana Hunter MD Primary Care Provider Shoshana Hunter MD Unavailable [phone] Encounter Details Date Type Department Care Team (Late st Contact Info) Description 07/23/2020 Ancillary Orders [facility] Central Scheduling [address] [place] [address] Shoshana Hunter MD [address] [facility] [place] [address] Visit for screening mammogram Social History Tobacco [...] MAMMOGRAM SCREENING WITH TOMOSYNTHESIS WITH CAD (LEFT) (07/23/2020 1:00 PM EDT) Anatomical Region Laterality Modality Breast Left, Breast Bilateral Left Ma mmography 07/23/2020 4:29 PM EDT Impressions 07/23/2020 4:30 PM EDT No mammographic evidence of malignancy. Routine screening mammography is recommended in one year. OVERALL Assessment: BI-RADS 1 Negative. The recommendation above has been entered into a reminder system to monitor and facilitate patient compliance. Narrative 07/23/2020 4:30 PM EDT BI MAMMOGRAM SCREENING WITH TOMOSYNTHESIS WITH CAD (LEFT): Reason for exam: Screening. Prior right mastectomy for breast cancer. No new breast complaints. Examination is performed with digital mammography and computer aided detection as well as tomosynthesis. Comparison is made with prior mammograms . BREAST DENSITY: The breast tissue is heterogeneously dense, an appearance which lowers the sensitivity of mammography. FINDINGS: Left Breast: There are no suspicious masses, calcifications, or other abnormalities noted. Procedure Note Rosi Reynoso MD, MBBS - 07/23/2020 BI MAMMOGRAM SCREENING WITH TOMOSYNTHESIS WITH CAD (LEFT): Reason for exam: Screening. Prior right mastectomy for breast cancer. No new breastcomplaints. Examination is performed with digital mammography and computer aideddetection as well as tomosynthesis. Comparison is made with prior mammograms . BREAST DENSITY: The breast tissue is heterogeneously dense, an appearancewhich lowers the sensitivity of mammography. FINDINGS: Left Breast: There are no suspicious masses, calcifications, orother abnormalities noted. IMPRESSION: No mammographic evidence of malignancy. Routine screening mammography isrecommended in one year. OVERALL Assessment: BI-RADS 1 Negative. The recommendation above has been entered into a reminder system tomonitor and facilitate patient compliance. Shoshana Hunter MD IMG MG EXAMS Final Result documented in this encounter Visit Diagnoses Diagnosis Visit for screening mammogram Visit for screening mammogram documented in this encounter Care Teams Director Semiconductor Relationship Specialty Start Date End Date Shoshana Hunter MD [address] [facility] [place] [address] PCP - General Internal Medicine 05/09/16 Shoshana Hunter MD [address] [place] [address] [place] [address] Referring Physician Internal Medicine 02/27/25 documented as of this encounter Additional Source Comments The information contained in this document represents components of the legal health record. It is not the complete legal health record.[facility]
--- OUTSIDE RECORDS SUMMARY | 2025-07-03 17:31 | XMS_ITS | Encounter Summary ---
Author Organization [facility] Address [address] [place] [address] Phone Care Team Providers Care Brake Linings Coater Name Role Phone Shoshana Hunter MD Primary Care Provider Shoshana Hunter MD Unavailable [phone] Encounter Details Date Type Department Care Team (Late st Contact Info) Description 06/01/2016 Ancillary Orders [facility] [address] [place] [address] Coleen Ann MD [address] [place] [address] [email or web address] Breast cancer, right (Primary Dx) Social History Tobacco Use Types Packs/Day Years Used Date Smoking Tobacco: Every Day Cigarettes Alcohol Use Standard Drinks/Week Comments No 0 (1 standard drink = 0.6 oz [...] documented as of this encounter Results * (ABNORMAL) BI MAMMOGRAM DIAGNOSTIC WITH TOMOSYNTHESIS WITH CAD (LEFT) (06/01/2016 2:13 PM EDT) Anatomical Region Laterality Modality Breast Left, Breast Bilateral Left Ma mmography Impressions 06/01/2016 3:11 PM EDT IMPRESSION: No evidence [...] been entered into a reminder system. Narrative 06/01/2016 3:11 PM EDT INTERPRETATION OF OUTSIDE [...] is made with the previous examinations from [place] dated 05/03/2016, 04/21/2016, 04/14/16 and 03/22/2016 . [...] 03/22/2016 mammogram. us Coleen Ann MD IMG MG EXAMS Final Resul t documented in this encounter Visit Diagnoses Diagnosis Breast cancer, right- Primary Breast cancer, right documented in this encounter Care Teams Brake Linings Coater Relationship Specialty Start Date End Date Shoshana Hunter MD [address] [facility] [place] [address] PCP - General Internal Medicine 05/09/16 Shoshana Hunter MD [address] [facility] [place] [address] Referring Physician Internal Medicine 02/27/25 documented as of this encounter Additional Source Comments The information contained in this document represents components of the legal health record. It is not the complete legal health record.[facility]
--- OUTSIDE RECORDS SUMMARY | 2025-07-03 17:31 | XMS_ITS | Encounter Summary ---
Author Organization [facility] Address [address] [place] [address] [place] [address] Phone Care Team Providers Care Specialist Managers Name Role Phone Shoshana Hunter MD Primary Care Provider Shoshana Hunter MD Unavailable [phone] Encounter Details Date Type Department Care Team (Late st Contact Info) Description 05/11/2016 Ancillary Orders [facility] Imaging Services [address] [place] [address] System, Provider Not In, [place] [address] Social History Tobacco Use Types Packs/Day Years [...] documented as of this encounter Results * Mammogram Outside (No Interpretation) (05/03/2016 12:00 AM EDT) Narrative [facility] IMG INTERFACES - 05/11/2016 10:36 AM EDT This study is for PACS storage only and not for interpretation. us Provider Not In System PhD IMG OUTSIDE IMAGING W /OUT INTERPRETATION Final Result Performing Organization Address City/[facility] de Phone Number [facility] IMG INTERFACES * Mammogram Outside (No Interpretation) (04/21/2016 12:30 AM EDT) Narrative [facility] INTERFACES - 05/11/2016 10:37 AM EDT This study is for PACS storage only and not for interpretation. us Provider Not In System PhD IMG OUTSIDE IMAGING W /OUT INTERPRETATION Final Result Performing Organization Address City/[facility] de Phone Number [facility] IMG INTERFACES * Mammogram Outside (No Interpretation) (04/14/2016 12:00 AM EDT) Narrative [facility] IM[facility] INTERFACES - 05/11/2016 10:39 AM EDT This study is for PACS storage only and not for interpretation. Procedure Note SYSTEMGENERATED, DOCUMENTATION - 05/11/2016 This study is for PACS storage only and not for interpretation. us Provider Not In System PhD IMG OUTSIDE IMAGING W /OUT INTERPRETATION Final Result Performing Organization Address [facility] de Phone Number [facility] IMG INTERFACES * Mammogram Outside (No Interpretation) (03/22/2016 12:00 AM EDT) Narrative [facility] IM[facility] INTERFACES - 05/11/2016 10:41 AM EDT This study is for PACS storage only and not for interpretation. Procedure Note SYSTEMGENERATED, DOCUMENTATION - 05/11/2016 This study is for PACS storage only and not for interpretation. us Provider Not In System PhD IMG OUTSIDE IMAGING W /OUT INTERPRETATION Final Result Performing Organization Address [facility] de Phone Number [facility] IMG INTERFACES documented in this encounter Visit Diagnoses Not on filedocumented in this encounter Care Teams Specialist Managers Relationship Specialty Start Date End Date Shoshana Hunter MD [address] [facility] [place] [address] PCP - General Internal Medicine 05/09/16 Shoshana Hunter MD [facility] [place] [address] Referring Physician Internal Medicine 02/27/25 documented as of this encounter Additional Source Comments The information contained in this document represents components of the legal health record. It is not the complete legal health record.[facility]
--- OUTSIDE RECORDS SUMMARY | 2025-07-03 17:31 | XMS_ITS | Clinical Summary ---
Author Organization [facility] Address [address] [place] [address] [place] [address] Phone Care Team Providers Care Auto Job Estimator Name Role Phone Shoshana Hunter MD Primary Care Provider Shoshana Hunter MD Unavailable Allergies No known active allergies Medications BIOTIN ORAL Take 10,000 mcg by mouth daily. Active CALCIUM ORAL Take 1,000 mg by mouth daily. Active CYANOCOBALAMIN, VITAMIN B-12, (VITAMIN B-12 ORAL) Take 1 tablet by mouth daily. Active cholecalciferol (VITAMIN D3) 1,000 unit tablet Take 1,000 Units by mouth daily. Active buPROPion (WELLBUTRIN SR) 100 MG SR 12 hr tablet Take 100 mg by mouth every morning. 03/24/2025 Active buPROPion (WELLBUTRIN SR) 150 MG SR 12 hr tablet Take 150 mg by mouth every morning. 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 Resolved Problems Problem Noted Date Diagnosed Date Resolved Date Hematoma 07/12/2016 07/12/2016 Encounters Date Type Department Care Team Description 04/11/2025 12:30 PM EDT [facility] [address] [place] [address], [address] [place] [phone] Amy Vivas MD Malignant neoplasm of central portion of right breast in female, estrogen receptor positive (Primary Dx) from Last 3 Months Social History Tobacco Use Types Packs/Day Years Used Date Smoking Tobacco: Every Day Cigarettes 0.3 50.7 Started: 1975 Smokeless Tobacco: Never Quit: 06/03/2016 Tobacco Cessation:Ready to Q uit: Yes; Counseling Given: Yes Alcohol Use Standard Drinks/Week Comments Yes 8 [...] high school, GED, job training, learning the [place] language, technical skills, or developing parenting skills)? [...] Orientation Straight 02/27/2025 4: 26 PM EDT Last Filed Vital Signs Vital Sign Reading Time Taken Comments Blood Pressure 125/73 04/11/2025 11:32 AM EDT Pulse 66 04/11/2025 11:32 AM EDT Temperature 36.3 C (97.4 F) 04/11/2025 11:32 AM EDT Respiratory Rate 16 04/11/2025 11:32 AM EDT Oxygen Saturation 96% 04/11/2025 11:32 AM EDT Inhaled Oxygen Concentration 21% 06/18/2016 1 1:35 AM EDT Weight 58.3 kg (128 lb 8.5 oz) 04/11/2025 11:32 AM EDT Height 167 cm (5' 5.75 ) 04/11/2025 11:32 AM EDT Body Mass Index 20.9 04/11/2025 11:32 AM EDT Plan of Treatment Health Maintenance Due Date Last Done Comments LIPID PANEL 1959 DEPRESSION SCREENING 1971 SMOKING Hx and SMOKELESS TOBACCO SCREENING 1972 HEPATITIS C SCREENING 1977 PNEUMOCOCCAL VACCINES (50+ years) (1 of 2 - PCV) 1978 ZOSTER VACCINES (1 of 2) 1978 COLOGUARD 2004 COLONOSCOPY 2004 COLORECTAL CANCER SCREENING 2004 FIT TEST 2004 FOBT 2004 SIGMOIDOSCOPY 2004 VIRTUAL COLONOSCOPY 2004 MAMMOGRAM 05/03/2018 05/03/2016, 03/25, 04/21/2016, Additional history exists OSTEOPOROSIS SCREENING INITIAL (ONE-TIME) 2024 07/28/2017 COVID-19 VACCINE ( - season) 2024 INFLUENZA VACCINE (#1) 2025 9, 07/23/2018, 08/02/2017, Additional history exists Adult Td,Tdap Booster 02/23/2028 02/22/2018 , 02/22/2009, 12/08/2005 RSV VACCINE (1 - 1-dose 75+ series) 2034 HEPATITIS A VACCINES Aged Out No long er eligible based on patient's age to complete this topic HIB VACCINES Aged Out No longer eligi ble based on patient's age to complete this topic MENINGOCOCCAL VACCINES (ACWY) Aged Out No longer eligible based on patient's age to complete this topic MENINGOCOCCAL VACCINES (B) Aged Out N o longer eligible based on patient's age to complete this topic Medical Devices Implanted Type Area Plaster Foreman Device Identifier Shelf Expiration Date Model / Serial / Lot R Breast Chips Dental N/A: Mouth Description:2 dental implant s, front/middle lower jaw Graft Soft Tissue 19.3x9.6cm Med 1.6 Plus/Minus .4mm Contour Large Perforated Rtu Alloderm Regenerative Matrix Implantable Bx/1ea - [id number] Implanted:Qty: 1 on 06/17/2016 by Mitch Nickerson MD, FACS at [facility] Right: Breast LIFECELL AMOS 07/22/2017 [id number] / / [id number] Implant Breast 3.1cmx12.8cm 300ml Round Smooth Moderate Profile Memorygel - [id number] Implanted:Qty: 1 on 06/17/2016 by Mitch Nickerson MD, FACS at [facility] Right: Breast MENTOR AMOS 07/31/2020 [id number] / / [id number] Srl Natrelle Inspira Breast Implant 200cc Implanted:Qty: 1 on 07/12/2016 by Mitch Nickerson MD, FACS at [facility] Right: Breast 10/12/2020 [id number] / / [id number] Breast Implant Gel Memorygel 3.1cmx12.8 300 Memory Profile Moderate Classic Smooth Round - [id number] Implanted:Qty: 1 on 10/01/2019 by Mitch Nickerson MD, FACS at [facility] Breast MENTOR AMOS 05/25/2024 [facility]83[facility] / [id number] / [id number] Description:The implant type , laterality (when applicable), size, and expiration date have been visually and verbally confirmed by the Surgeon, Circulating RN and Scrub Personnel. Procedures Procedure Name Priority Date/Time Associated Diagnosis Comments BD DXA AXIAL (SPINE) WITH HIP Routine 07/28/2017 1:00 PM EDT Osteopenia, unspecified location BI MAMMOGRAM OUTSIDE (NO INTERPRETATION) Routine 05/03/2016 12:00 AM EDT from Last 3 Months or Most Recently Relevant to Health Maintenance Results * BD DXA AXIAL (SPINE) WITH HIP (07/28/2017 1:00 PM EDT) Anatomical Region Laterality Modality Bone Density Bone Density Narrative 08/03/2017 1:55 PM EDT Name: HERNANDEZ EDGAR Age: 57 Sex: Female Ethnicity: White Date of : 1960 Clinician ID: [id number] Exam Date: July 28, 2017 Amanda Veloz M.D., Director [facility] Density [facility] [address] [place] [address] Referring Physician: AMY VIVAS M.D. Study: Bone densitometry was performed on Hologic DXA. Accession number: [id number] INDICATION: 57 y/o postmenopausal woman with history of right foot fracture from miss step at age 57, breast cancer, anastrozole, back pain, degenerative disc disease, spinal stenosis and current smoking. R/O Osteopenia. BONE DENSITY: Compared Compared to Classification* Bone To Young Age-Adjusted Region Density Normals Normals (gm/cm2) (T-Score) (Z-Score) S.D. S.D. AP Spine (L1-L4) 1.147 0.9 2.2 Normal Femoral Neck (Left) 0.805 -0.4 0.8 Normal Total Hip (Left) 0.788 -1.3 -0.4 Osteopenic *World Health Organization criteria for BMD interpretation classify patients as: Normal (T-score at or above -1.0), Osteopenic (T-score between -1.0 and -2.5), or Osteoporotic (T-score at or below -2.5). INTERPRETATION: OSTEOPENIA (LOW BONE MASS) is present by bone density criteria at the hip. SPINE: Increased bone density of the lumbar spine compared with age-adjusted controls. HIP: Normal bone density of the hip compared with age-adjusted controls. FRACTURE RISK ASSESSMENT: According to the 10-year absolute fracture risk in the FRAX calculator and the National Osteoporosis Foundation recommendations, treatment is not indicated at the present time. Fracture risk assessment with the WHO FRAX Calculator is 5.3% for major osteoporotic fracture and 0.3% for hip fracture. RECOMMENDATIONS: Would consider follow-up BMD in two to three years of the spine and hip. Ryanne Mera M.D. nhi/robni holly Comment: The National Osteoporosis Foundation Clinicians Guide recommends treatment if either the 10-year risk for hip fracture is >=3% or for major osteoporotic fracture is >=20%. All treatment decisions require clinical judgment and consideration of individual patient factors, including patient preferences, comorbidities, previous drug use and risk factors not captured in the FRAX model (e.g. frailty, falls, vitamin D deficiency, increased bone turnover, interval significant decline in BMD). National Osteoporosis Foundation 2008 Clinicians Guide to Prevention and Treatment of Osteoporosis. National Osteoporosis Foundation, [place], [place], [place]. www.nof.org FRAX is intended for use in patients with osteopenia to estimate fracture probabilities in postmenopausal women age 40 years and older and men age 50 years and older. It has not been validated for use on patients currently or formerly treated with pharmacotherapy for osteoporosis. Amy Vivas MD IMG BD BONE DENSITY DEX A Final Result * Mammogram Outside (No Interpretation) (05/03/2016 12:00 AM EDT) Narrative [facility] IMG INTERFACES - 05/11/2016 10:36 AM EDT This study is for PACS storage only and not for interpretation. Provider Not In System PhD IMG OUTSIDE IMAGING W /OUT INTERPRETATION Final Result [facility] IMG INTERFACES from Last 3 Months or Most Recently Relevant to Health Maintenance [place] [address] CHELSEY O Member Subscriber Plan / Payer (Ef fective 2014-Present) Name:Hernandez Edgar Relation to Subscriber:Self Name:Hernandez Edgar Payer ID:[id number] ([facility]) Type:PPO Address: [address] [place] [id number] CIGNA PPO CIGNA PPO CIGNA PPO CIGNA PPO CIGNA PPO CIGNA PPO CIGNA PPO CIGNA PPO CIG[place] [phone] [id number] PPO Advance Directives For more information, please contact: [phone] (9AM - 5PM [facility], Monday-Monday) * Full Code (Presumed) (Latest Code Status on File) Date Activated Date Inactivated Comments 06/17/2016 11:11 AM 06/18/2016 7:22 PM * Full Code (Presumed) Date Activated Date Inactivated Comments 06/17/2016 6:25 AM 06/17/2016 11:11 AM Care Teams Auto Job Estimator Relationship Specialty Start Date End Date Shoshana Hunter MD [address] [facility] [place] [address] PCP - General Internal Medicine 05/09/16 Shoshana Hunter MD [address] [facility] [place] [address] Referring Physician Internal Medicine 02/27/25 Additional Source Comments The information contained in this document represents components of the legal health record. It is not the complete legal health record.[facility]
== END 2025-07-03 14:50 | disposition home or self-care (01) ==
PROVIDERS: PCP Internal Medicine; Visit Provider Internal Medicine
DX: S46.911A Strain of unspecified muscle, fascia and tendon at shoulder and upper arm level, right arm, initial encounter (principal)

== ENCOUNTER 2025-07-26 13:22 | Outpatient (REF) | payer OTHER, SELFPAY ==
--- NOTE | ~2025-07-26 | XR_ITS ---
CLINICAL HISTORY: M79.601 - Pain in right arm Two views of the right shoulder. COMPARISON: None provided. FINDINGS: Osteopenia. Proximal right humerus, the right scapula, and the right clavicle appear intact. Humeral head is appropriately seated in the glenoid. Mild hypertrophy of the right acromioclavicular joint. Visualized portions of the right lung are clear. IMPRESSION: 1. No radiographic evidence of acute injury to the right shoulder. This document has been electronically signed by: Tim Nino MD on 07/26/2025 16:02:33
--- NOTE | ~2025-07-26 | XR_ITS ---
CLINICAL HISTORY: M79.601 - Pain in right arm Two views of the right humerus. COMPARISON: None provided. FINDINGS: Osteopenia. Humerus appears intact. Humeral head appears appropriately seated in the glenoid. Visualized portions of the right shoulder and elbow are unremarkable. IMPRESSION: 1. No radiographic evidence of acute injury to the right humerus. This document has been electronically signed by: Tim Nino MD on 07/26/2025 16:01:23
== END 2025-07-26 13:23 | disposition home or self-care (01) ==
LOC: HO.HMGCX 13:22
PROVIDERS: PCP Internal Medicine; Visit Provider Physician Assistant
DX: M79.601 Pain in right arm (principal)
CPT/HCPCS: 73030; 73060

== ENCOUNTER 2025-07-26 13:22 | Outpatient (AMB) | payer OTHER, SELFPAY ==
--- OUTSIDE RECORDS SUMMARY | 2016-03-22 | XMS_ITS | Encounter Summary ---
Author Organization [facility] Address [address] [place] [address] [place] [address] Phone Care Team Providers Care Director Of Pulmonary Unit Name Role Phone Unavailable Primary Care Provider Unavailabl e Encounter Details Date Type Department Care Team (Late st Contact Info) Description 03/22/2016 Hospital Encounter [facility] IM OUTSIDE IMG [address] [place] [address] System, Provider Not In, [facility] [address] [address] Unknown, Unknown, Social History Tobacco Use Types Packs/Day Years Used Date Smoking Tobacco: Every Day Cigarettes 0.3 50.8 Started: 1975 Smokeless Tobacco: Never Quit: 06/03/2016 Alcohol Use Standard Drinks/Week Comments Yes 8 (1 standard drink = 0.6 oz pur e alcohol) Child or Family Care Answer Date Record ed Do you have problems with on e of the following making it difficult for you to work, study, or receive health care? No 04/04/2025 Education Answer Date Recorded Are you interested in help w ith more adult education (for example, completing high school, GED, job training, learning the Thai language, technical skills, or developing parenting skills)? No 04/04/2025 Are you concerned about learning? Not on file 04/04/2025 No 04/04/2025 Yes 04/04/2025 Food Answer Date Recorded Within the past 6 months we worried whether our food would run out before we got money to buy more. Never True 04/04/2025 Within the past 6 months the food we bought just didn't last and we didn't have enough money to get more. Never True Residential Stability Answer Date Recor ded What is your housing situation today? I have george bradshaw 04/04/2025 How many times have you move d in the past 12 months? Zero (I did not move) 04/04/2025 Paying for Meds Answer Date Recorded Do you have trouble paying for medicines? No 04/04/2025 Paying Utility Bills Answer Date Record ed Do you have trouble paying your heating or elect ricity bill? No 04/04/2025 Transportation Answer Date Recorded Has the lack of transportati on kept you from medical appointments or from getting medications? No 04/04/2025 Digital Access Answer Date Recorded No 03/20/2023 No 03/20/2023 Reliable internet access at home? Not on file 03/20/2023 Device with a working camera? Not on file Comments No Sex and Gender Information Value Date Recorded Sex Assigned at Female 02/27/2025 4:26 PM EDT Legal Sex Female 12:35 PM EDT Gender Identity Female 02/27/2025 4:26 PM EDT Sexual Orientation Straight 02/27/2025 4: 26 PM EDT documented as of this encounter Plan of Treatment Not on file documented as of this encounter Procedures Procedure Name Priority Date/Time Associated Diagnosis Comments BI MAMMOGRAM OUTSIDE (NO INTERPRETATION) Routine 03/22/2016 12:00 AM EDT documented in this encounter Results * Mammogram Outside (No Interpretation) (03/22/2016 12:00 AM EDT) Narrative [facility] IMG INTERFACES - 05/11/2016 10:41 AM EDT This study is for PACS storage only and not for interpretation. Procedure Note SYSTEMGENERATED, DOCUMENTATION - 05/11/2016 This study is for PACS storage only and not for interpretation. us Provider Not In System PhD IMG OUTSIDE IMAGING W /OUT INTERPRETATION Final Result [facility] IMG INTERFACES documented in this encounter Visit Diagnoses Not on filedocumented in this encounter Additional Source Comments The information contained in this document represents components of the legal health record. It is not the complete legal health record.[facility]
--- OUTSIDE RECORDS SUMMARY | 2016-04-14 | XMS_ITS | Encounter Summary ---
Author Organization [facility] Address [address] [place] [address] [place] [address] Phone Care Team Providers Care Watershed Program Manager Name Role Phone Unavailable Primary Care Provider Unavailabl e Encounter Details Date Type Department Care Team (Late st Contact Info) Description 04/14/2016 Hospital Encounter [facility] IM OUTSIDE IMG 2013 [place] [address] System, Provider Not In, [facility] [address] [address] Unknown, Unknown, Social History Tobacco Use Types [...] high school, GED, job training, learning the Mozambican language, technical skills, or developing parenting skills)? [...] (No Interpretation) (04/14/2016 12:00 AM EDT) Narrative [facility] IMG INTERFACES - 05/11/2016 10:39 AM EDT This study is for PACS storage only and not for interpretation. Procedure Note SYSTEMGENERATED, DOCUMENTATION - 05/11/2016 This study is for PACS storage only and not for interpretation. us Provider Not In System PhD IMG OUTSIDE IMAGING W /OUT INTERPRETATION Final Result [facility] IMG INTERFACES documented in this encounter Visit Diagnoses Not on filedocumented in this encounter Additional Source Comments The information contained in this document represents components of the legal health record. It is not the complete legal health record.[facility]
--- OUTSIDE RECORDS SUMMARY | 2016-04-21 | XMS_ITS | Encounter Summary ---
Author Organization [facility] Address [address] [place] [address] [place] [address] Phone Care Team Providers Care Engineer Operations And Maintenance Name Role Phone Unavailable Primary Care Provider Unavailabl e Encounter Details Date Type Department Care Team (Late st Contact Info) Description 04/21/2016 Hospital Encounter [facility] IMG OUTSIDE IMG [address] [place] [address] Coleen Ann MD [address] [address] [email or web address] Social History Tobacco Use Types Packs/Day Years [...] Date/Time Associated Diagnosis Comments BI MAMMOGRAM OUTSIDE WITH INTERPRETATION OR CONSULT Routine 04/21/2016 12:00 AM EDT Breast cancer, right documented in this encounter Results * (ABNORMAL) Mammogram Outside With Interpretation Or Consult (04/21/2016 12:00 AM EDT) Impressions [facility] - 06/01/2016 3:11 PM EDT IMPRESSION: No evidence of malignancy of the left breast mammographically. Known multicentric DCIS of the right breast. Breast MRI could be performed for a more sensitive examination for surgical planning, although the patient feels she may need an anxiolytic prior to any MRI due to a history of claustrophobia with prior spine MRIs. Result Code: BI-RADS 6 Known Biopsy - Proven Malignancy Recommendations: Surgical Consultation Recommendation Due Date: TBD The recommendation due date has been entered into a reminder system. Narrative [facility] - 06/01/2016 3:11 PM EDT INTERPRETATION OF OUTSIDE MAMMOGRAM REQUESTED: The patient presents for consultation following newly diagnosed multifocal, multicentric DCIS of the right breast. The patient and her surgeon are currently planning nipple sparing right mastectomy with reconstruction. The patient has recently undergone smoking cessation. The option of further evaluation with breast MRI was discussed with the patient, to which she was amenable although feels she may need an anxiolytic due to history of claustrophobia with prior MRIs of the spine. Comparison is made with the previous examinations from [place] dated 05/03/2016, 04/21/2016, 04/14/16 and 03/22/2016 . FINDINGS: The breast tissue is heterogeneously dense, an appearance which lowers the sensitivity of mammography. Magnification views of the right breast performed on 04/14/2016 demonstrated multiple foci of microcalcifications in the anterior and posterior central right breast. Post procedure clip films of the right breast demonstrate biopsy marking clips in the anterior 12:00 position and posterior 12:00 position of the right breast. In order to fully investigate the left breast, CC and MLO views of the left breast with digital and Tomosynthesis imaging as well as computer aided detection were performed. LEFT BREAST: There are no suspicious masses, calcifications or areas of architectural distortion. No significant change since the 03/22/2016 mammogram. us Coleen Ann MD IMG OUTSIDE IMAGING W/ INTE RPRETATION Final Result Performing Organization Address City/State/[facility] Co de Phone Number [facility] [address] [facility] [place] [place] [address] documented in this encounter Visit Diagnoses Diagnosis Breast cancer, right documented in this encounter Additional Source Comments The information contained in this document represents components of the legal health record. It is not the complete legal health record.[facility]
--- OUTSIDE RECORDS SUMMARY | 2016-04-21 00:15 | XMS_ITS | Encounter Summary ---
Author Organization [facility] Address [address] [place] [address] [place] [address] Phone Care Team Providers Care Agency Service Representative Name Role Phone Unavailable Primary Care Provider Unavailabl e Encounter Details Date Type Department Care Team (Late st Contact Info) Description 04/21/2016 12:15 AM EDT Hospital Encounter [facility] IMG OUTSIDE IMG [address] [place] [address] Coleen Ann MD [address] [address] [email or web address] Social History Tobacco Use Types Packs/Day [...] high school, GED, job training, learning the Grenadian language, technical skills, or developing parenting skills)? [...] Or Consult (04/21/2016 12:15 AM EDT) Impressions [facility] - 06/01/2016 3:11 PM EDT IMPRESSION: [...] been entered into a reminder system. Narrative [facility] - 06/01/2016 3:11 PM EDT INTERPRETATION [...] is made with the previous examinations from [place] dated 05/03/2016, 04/21/2016, 04/14/16 and 03/22/2016 . [...] OUTSIDE IMAGING W/ INTE RPRETATION Final Result [facility] [address] [facility] [place] [address] documented in this encounter Visit Diagnoses Diagnosis Breast cancer, right documented in this encounter Additional Source Comments The information contained in this document represents components of the legal health record. It is not the complete legal health record.[facility]
--- OUTSIDE RECORDS SUMMARY | 2016-04-21 00:30 | XMS_ITS | Encounter Summary ---
Author Organization [facility] Address [address] [place] [address] [place] [phone] Phone Care Team Providers Care Credit Interviewer Name Role Phone Unavailable Primary Care Provider Unavailabl e Encounter Details Date Type Department Care Team (Late st Contact Info) Description 04/21/2016 12:30 AM EDT Hospital Encounter [facility] IMG OUTSIDE IM [address] [place] [address] System, Provider Not In, [facility] [address] [address] Unknown, Unknown, Social History Tobacco Use Types [...] high school, GED, job training, learning the Mauritian language, technical skills, or developing parenting skills)? [...] Comments BI MAMMOGRAM OUTSIDE (NO INTERPRETATION) Routine 04/21/2016 12:30 AM EDT documented in this encounter Results * Mammogram Outside (No Interpretation) (04/21/2016 12:30 AM EDT) Narrative [facility] IMG INTERFACES - 05/11/2016 10:37 AM EDT This study is for PACS storage only and not for interpretation. us Provider Not In System PhD IMG OUTSIDE IMAGING W /OUT INTERPRETATION Final Result [facility] IMG INTERFACES documented in this encounter Visit Diagnoses Not on filedocumented in this encounter Additional Source Comments The information contained in this document represents components of the legal health record. It is not the complete legal health record.[facility]
--- OUTSIDE RECORDS SUMMARY | 2016-05-03 | XMS_ITS | Encounter Summary ---
Author Organization [facility] Address [address] [place] [address] [place] [address] Phone Care Team Providers Care Pcts Name Role Phone Unavailable Primary Care Provider Unavailabl e Encounter Details Date Type Department Care Team (Late st Contact Info) Description 05/03/2016 Hospital Encounter [facility] IM OUTSIDE IMG [address] [place] [address] System, Provider Not In, PhD Partners [address] [address] Unknown, Unknown, Social History Tobacco Use Types [...] (No Interpretation) (05/03/2016 12:00 AM EDT) Narrative [facility] IMG INTERFACES - 05/11/2016 10:36 AM EDT This study is for PACS storage only and not for interpretation. us Provider Not In System PhD IMG OUTSIDE IMAGING W /OUT INTERPRETATION Final Result [facility] IMG INTERFACES documented in this encounter Visit Diagnoses Not on filedocumented in this encounter Additional Source Comments The information contained in this document represents components of the legal health record. It is not the complete legal health record.[facility]
--- OUTSIDE RECORDS SUMMARY | 2025-07-26 13:24 | XMS_ITS | Encounter Summary ---
Author Organization [facility] Address [address] [place] [address] [place] [address] Phone Care Team Providers Care Software Quality Assurance Analyst Name Role Phone Shoshana Hunter MD Primary Care Provider Shoshana Hunter MD Unavailable [phone] Encounter Details Date Type Department Care Team (Late st Contact Info) Description 07/08/2019 Ancillary Orders [facility] Central Scheduling [address] [place] [address] Amy Oconnor MD [address] [place] [address] [email or web address] Visit for screening mammogram Social History [...] mammogram documented in this encounter Care Teams Software Quality Assurance Analyst Relationship Specialty Start Date End Date Shoshana Hunter MD [address] [facility] [place] [address] PCP - General Internal Medicine 05/09/16 Shoshana Hunter MD [address] [facility] [place] [address] Referring Physician Internal Medicine 02/27/25 documented as of this encounter Additional Source Comments The information contained in this document represents components of the legal health record. It is not the complete legal health record.[facility]
--- OUTSIDE RECORDS SUMMARY | 2025-07-26 13:24 | XMS_ITS | Encounter Summary ---
Author Organization [facility] Address [address] [place] [address] [place] [address] Phone Care Team Providers Care Logging Crew Supervisor Name Role Phone Shoshana Hunter MD Primary Care Provider Shoshana Hunter MD Unavailable [phone] Encounter Details Date Type Department Care Team (Late st Contact Info) Description 10/01/2019 Procedure Pass [facility] PERIOPERATIVE DEPT [address] [place] [address] Social History Tobacco Use Types [...] on filedocumented in this encounter Care Teams Logging Crew Supervisor Relationship Specialty Start Date End Date Shoshana Hunter MD 1962 [facility] [place] [address] PCP - General Internal Medicine 05/09/16 Shoshana Hunter MD [address] [place] [address] [place] [address] Referring Physician Internal Medicine 02/27/25 documented as of this encounter Additional Source Comments The information contained in this document represents components of the legal health record. It is not the complete legal health record.[facility]
--- OUTSIDE RECORDS SUMMARY | 2025-07-26 13:24 | XMS_ITS | Encounter Summary ---
Author Organization [facility] Address [address] [place] [address] [place] [address] Phone Care Team Providers Care Radio Electrician Name Role Phone Shoshana Hunter MD Primary Care Provider Shoshana Hunter MD Unavailable Encounter Details Date Type Department Care Team (Late st Contact Info) Description 05/22/2018 Procedure Pass [facility] PERIOPERATIVE DEPT 2013 [place] [address] Social History Tobacco Use Types [...] on filedocumented in this encounter Care Teams Radio Electrician Relationship Specialty Start Date End Date Shoshana Hunter MD [address] [place] [address] [place] [address] PCP - General Internal Medicine 05/09/16 Shoshana Hunter MD [facility] [place] [address] Referring Physician Internal Medicine 02/27/25 documented as of this encounter Additional Source Comments The information contained in this document represents components of the legal health record. It is not the complete legal health record.[facility]
--- OUTSIDE RECORDS SUMMARY | 2025-07-26 13:24 | XMS_ITS | Encounter Summary ---
Author Organization [facility] Address [address] [place] [address] [place] [address] Phone Care Team Providers Care Folder Inspector Name Role Phone Shoshana Hunter MD Primary Care Provider Shoshana Hunter MD Unavailable [phone] Encounter Details Date Type Department Care Team (Late st Contact Info) Description 07/23/2020 Ancillary Orders [facility] Central Scheduling 2013 [place] [address] Shoshana Hunter MD 1962 [facility] [place] [address] Visit for screening mammogram Social History Tobacco [...] mammogram documented in this encounter Care Teams Folder Inspector Relationship Specialty Start Date End Date Shoshana Hunter MD [address] [facility] [place] [address] PCP - General Internal Medicine 05/09/16 Shoshana Hunter MD [address] [place] [address] [place] [address] Referring Physician Internal Medicine 02/27/25 documented as of this encounter Additional Source Comments The information contained in this document represents components of the legal health record. It is not the complete legal health record.[facility]
--- OUTSIDE RECORDS SUMMARY | 2025-07-26 13:24 | XMS_ITS | Clinical Summary ---
Author Organization [facility] Address [address] [place] [address] Care Team Providers Care Regional Office Coordinator Name Role Phone Shoshana Hunter MD Primary Care Provider [phone] Surgical History Surgery Date Site/Laterality Comments TUBAL [...] DTaP,Tdap,and Td Vaccines (1 - Tdap) 1978 Pneumococcal Vaccine: 50+ Ye ars (1 of 1 - PCV) 2009 Zoster Vaccines (1 of 2) 2009 Depression Screening 10/23/2024 COVID-19 Vaccine (1 - 2023-2 5 season) 2025 Influenza Vaccine (#1) 2025 RSV Immunization Adult Patie nts (1 [...] age to complete this topic Care Teams Regional Office Coordinator Relationship Specialty Start Date End Date Shoshana Hunter MD [address] [place] [address] PCP - General Internal Medicine 01/14/21
--- OUTSIDE RECORDS SUMMARY | 2025-07-26 13:24 | XMS_ITS | Patient Health Record ---
Author Organization [facility] Address [address] [facility] [place] [address] Care Team Providers Care Mammography Technician Name Role Phone Dale MESA, Shoshana Wilkerson Primary Care Provider Un available Gloria Poe Unavailable [phone] Reason For Referral No Information Medications Medication [...] Problem Acquired hammer toe of right foot (3401530158997 105) Other hammer toe(s) (acquired), right foot (M20.41) Active confirmed Problem Acquired hammer toe of left foot ([id number] 103) Other hammer toe(s) (acquired), left foot (M20.42) Active confirmed Plan Of Treatment No Information Insurance Providers Payer Name Payer Address Payer Phone Subscriber Number Group Number Insured Name Patient Relationship to Insured Coverage Start Date Coverage End Date Cigna [address] [place] [id number] Pratibha Burdick Self - patient is the [...]
--- OUTSIDE RECORDS SUMMARY | 2025-07-26 13:24 | XMS_ITS | Encounter Summary ---
Author Organization [facility] Address [address] [place] [address] [place] [address] Phone Care Team Providers Care Drill Press Operator Numerical Control Name Role Phone Shoshana Hunter MD Primary Care Provider Shoshana Hunter MD Unavailable [phone] Encounter Details Date Type Department Care Team (Late st Contact Info) Description 05/11/2016 Ancillary Orders [facility] Imaging Services 2013 [place] [address] System, Provider Not In, [place] [address] Social History Tobacco Use Types Packs/Day Years [...] (No Interpretation) (05/03/2016 12:00 AM EDT) Narrative [facility] IMG INTERFACES - 05/11/2016 10:36 AM [...] /OUT INTERPRETATION Final Result Performing Organization Address [facility] de [...] /OUT INTERPRETATION Final Result Performing Organization Address [facility] de Phone Number NW IMG INTERFACES documented in this encounter Visit Diagnoses Not on filedocumented in this encounter Care Teams Drill Press Operator Numerical Control Relationship Specialty Start Date End Date Shoshana Hunter MD [address] [facility] [place] [address] PCP - General Internal Medicine 05/09/16 Shoshana Hunter MD [facility] [place] [address] Referring Physician Internal Medicine 02/27/25 documented as of this encounter Additional Source Comments The information contained in this document represents components of the legal health record. It is not the complete legal health record.[facility]
--- OUTSIDE RECORDS SUMMARY | 2025-07-26 13:24 | XMS_ITS | Encounter Summary ---
Author Organization [facility] Address [address] [place] [address] [place] [address] Phone Care Team Providers Care Dry Cleaner Presser Name Role Phone Shoshana Hunter MD Primary Care Provider Shoshana Hunter MD Unavailable [phone] Encounter Details Date Type Department Care Team (Late st Contact Info) Description 05/11/2020 Ancillary Orders [facility] Central Scheduling 2013 [place] [address] Shoshana Hunter MD [facility] [place] [address] Visit for screening mammogram Social History Tobacco [...] mammogram documented in this encounter Care Teams Dry Cleaner Presser Relationship Specialty Start Date End Date Shoshana Hunter MD [address] [facility] [place] [address] PCP - General Internal Medicine 05/09/16 Shoshana Hunter MD [address] [facility] [place] [address] Referring Physician Internal Medicine 02/27/25 documented as of this encounter Additional Source Comments The information contained in this document represents components of the legal health record. It is not the complete legal health record.[facility]
--- OUTSIDE RECORDS SUMMARY | 2025-07-26 13:24 | XMS_ITS | Encounter Summary ---
Author Organization [facility] Address [address] [place] [address] [place] [address] Phone Care Team Providers Care Internet Consultant Name Role Phone Shoshana Hunter MD Primary Care Provider Shoshana Hunter MD Unavailable Encounter Details Date Type Department Care Team (Late st Contact Info) Description 12/15/2020 Procedure Pass [facility]- Breast Imaging, [facility] [address] [place] [address] Social History Tobacco Use Types Packs/Day Years [...] on filedocumented in this encounter Care Teams Internet Consultant Relationship Specialty Start Date End Date Shoshana Hunter MD 1962 [facility] [place] [address] PCP - General Internal Medicine 05/09/16 Shoshana Hunter MD [address] [place] [address] [place] [address] Referring Physician Internal Medicine 02/27/25 documented as of this encounter Additional Source Comments The information contained in this document represents components of the legal health record. It is not the complete legal health record.[facility]
--- OUTSIDE RECORDS SUMMARY | 2025-07-26 13:24 | XMS_ITS | Encounter Summary ---
Author Organization [facility] Address [address] [place] [address] [place] [address] Phone Care Team Providers Care Pharmaceutical Process Engineer Name Role Phone Shoshana Hunter MD Primary Care Provider Shoshana Hunter MD Unavailable [phone] Encounter Details Date Type Department Care Team (Late st Contact Info) Description 06/23/2020 Procedure Pass [facility] Breast [facility], [facility] [address] [place] [address] Social History Tobacco Use Types Packs/Day Years [...] on filedocumented in this encounter Care Teams Pharmaceutical Process Engineer Relationship Specialty Start Date End Date Shoshana Hunter MD [facility] [place] [address] PCP - General Internal Medicine 05/09/16 Shoshana Hunter MD [address] [place] [address] [place] [address] Referring Physician Internal Medicine 02/27/25 documented as of this encounter Additional Source Comments The information contained in this document represents components of the legal health record. It is not the complete legal health record.[facility]
--- OUTSIDE RECORDS SUMMARY | 2025-07-26 13:24 | XMS_ITS | Encounter Summary ---
Author Organization [facility] Address [address] [place] [address] [place] [address] Phone Care Team Providers Care Pocket Setter Name Role Phone Shoshana Hnuter MD Primary Care Provider Shoshana Hunter MD Unavailable [phone] Encounter Details Date Type Department Care Team (Late st Contact Info) Description 07/08/2019 Ancillary Orders [facility] [address] [facility] [place] [address] Amy Oconnor MD [address] [place] [address] [email or web address] Social History Tobacco Use Types Packs/Day [...] on filedocumented in this encounter Care Teams Pocket Setter Relationship Specialty Start Date End Date Shoshana Hunter MD [facility] [place] [address] PCP - General Internal Medicine 05/09/16 Shoshana Hunter MD [address] [facility] [place] [address] Referring Physician Internal Medicine 02/27/25 documented as of this encounter Additional Source Comments The information contained in this document represents components of the legal health record. It is not the complete legal health record.[facility]
--- OUTSIDE RECORDS SUMMARY | 2025-07-26 13:24 | XMS_ITS | Encounter Summary ---
Author Organization [facility] Address [address] [place] [address] Phone Care Team Providers Care Windows Server Specialist Name Role Phone Shoshana Hunter MD Primary Care Provider Shoshana Hunter MD Unavailable [phone] Encounter Details Date Type Department Care Team (Late st Contact Info) Description 06/01/2016 Ancillary Orders [facility] 2013 [place] [address] Coleen Ann MD [address] [place] [address] [email or web address] Breast cancer, right (Primary Dx) Social History [...] is made with the previous examinations from [place] dated 05/03/2016, 04/21/2016, 04/14/16 and 03/22/2016 . [...] right documented in this encounter Care Teams Windows Server Specialist Relationship Specialty Start Date End Date Shoshana Hunter MD [address] [facility] [place] [address] PCP - General Internal Medicine 05/09/16 Shoshana Hunter MD [address] [facility] [place] [address] Referring Physician Internal Medicine 02/27/25 documented as of this encounter Additional Source Comments The information contained in this document represents components of the legal health record. It is not the complete legal health record.[facility]
--- OUTSIDE RECORDS SUMMARY | 2025-07-26 13:24 | XMS_ITS | Encounter Summary ---
Author Organization [facility] Address [address] [place] [address] Phone Care Team Providers Care Trim Line Worker Name Role Phone Shoshana Hunter MD Primary Care Provider Shoshana Hunter MD Unavailable [phone] Reason for Visit * Reason Onset Date Comments Post Discharge Follow Up Call 06/21/2016 Encounter Details Date Type Department Care Team (Late st Contact Info) Description 06/21/2016 Telephone [facility] 2013 [place] [address] Gabriela Blackwell RN [address] [place] [address] [email or web address] Discharge Follow Up Call Social [...] on filedocumented in this encounter Care Teams Trim Line Worker Relationship Specialty Start Date End Date Shoshana Hunter MD [facility] [place] [address] PCP - General Internal Medicine 05/09/16 Shoshana Hunter MD [address] [facility] [place] [address] Referring Physician Internal Medicine 02/27/25 documented as of this encounter Additional Source Comments The information contained in this document represents components of the legal health record. It is not the complete legal health record.[facility]
--- OUTSIDE RECORDS SUMMARY | 2025-07-26 13:24 | XMS_ITS | Clinical Summary ---
Author Organization [facility] Address [address] [place] [address] [place] [address] Phone Care Team Providers Care Health Center Manager Name Role Phone Shoshana Hunter MD [...] Diagnosed Date Resolved Date Hematoma 07/12/2016 07/12/2016 Social History Tobacco Use Types Packs/Day Years [...] high school, GED, job training, learning the Irish language, technical skills, or developing parenting skills)? [...] exists OSTEOPOROSIS SCREENING INITIAL (ONE-TIME) 2024 07/28/2017 INFLUENZA VACCINE (#1) 2025 9, 07/23/2018, 08/02/2017, Additional history exists COVID-19 VACCINE ( - season) 2025 Adult Td,Tdap Booster 02/23/2028 02/22/2018 , 02/22/2009, [...] this topic Medical Devices Implanted Type Area Real Estate Salesperson Device Identifier Shelf Expiration Date Model / Serial / Lot R Breast Chips Dental N/A: Mouth Description:2 dental implant s, front/middle lower jaw Graft Soft Tissue 19.3x9.6cm Med 1.6 Plus/Minus .4mm Contour Large Perforated Rtu Alloderm Regenerative Matrix Implantable Bx/1ea - [id number] Implanted:Qty: 1 on 06/17/2016 by Mitch Nickerson MD, FACS at [facility] Right: Breast LIFECELL AMOS 07/22/2017 [id number] / / [id number] Implant Breast 3.1cmx12.8cm 300ml Round Smooth Moderate Profile Memorygel - [id number] Implanted:Qty: 1 on 06/17/2016 by Mitch Nickerson MD, FACS at [facility] Right: Breast MENTOR AMOS 07/31/2020 [id number] / / [id number] Srl Natrelle Inspira Breast Implant 200cc Implanted:Qty: 1 on 07/12/2016 by Mitch Nickerson MD, FACS at [facility] Right: Breast 10/12/2020 [id number] / / [id number] Breast Implant Gel Memorygel 3.1cmx12.8 300 Memory Profile Moderate Classic Smooth Round - [id number] Implanted:Qty: 1 on 10/01/2019 by Mitch Nickerson MD, FACS at [facility] Breast MENTOR AMOS 05/25/2024 [id number] / [id number] / [id number] Description:The implant type , laterality (when [...] [facility] [address] [place] [address] Referring Physician: AMY VIVAS M.D. Study: Bone densitometry was performed on Hologic DXA. Accession number: [id number] INDICATION: 57 y/o postmenopausal woman with history [...] the spine and hip. Ryanne Mera M.D. nhi/robin holly Comment: The National Osteoporosis Foundation Clinicians [...] (No Interpretation) (05/03/2016 12:00 AM EDT) Narrative [facility] IMG INTERFACES - 05/11/2016 10:36 AM EDT This study is for PACS storage only and not for interpretation. Provider Not In System PhD IMG OUTSIDE IMAGING W /OUT INTERPRETATION Final Result [facility] IMG INTERFACES from Last 3 Months or Most Recently Relevant to Health Maintenance [place] [address] [place] [phone] CIGNA PPO CIGNA PPO CIGNA PPO CIGNA PPO CIGNA PPO CIGNA PPO CIGNA PPO CIGNA PPO CIGNA PPO CIGNA PPO Advance Directives For more information, please contact: [phone] (9AM - 5PM [facility], Monday-Monday) * Full Code (Presumed) (Latest Code Status on File) Date Activated Date Inactivated Comments 06/17/2016 11:11 AM 06/18/2016 7:22 PM * Full Code (Presumed) Date Activated Date Inactivated Comments 06/17/2016 6:25 AM 06/17/2016 11:11 AM Care Teams Health Center Manager Relationship Specialty Start Date End Date Shoshana Hunter MD [facility] [place] [address] PCP - General Internal Medicine 05/09/16 Shoshana Hunter MD [address] [place] [address] [place] [address] Referring Physician Internal Medicine 02/27/25 Additional Source Comments The information contained in this document represents components of the legal health record. It is not the complete legal health record.[facility]
--- OUTSIDE RECORDS SUMMARY | 2025-07-26 13:24 | XMS_ITS | Encounter Summary ---
Author Organization [facility] Address [address] [place] [address] [place] [address] Phone Care Team Providers Care Senior Software Qa Engineer Name Role Phone Shoshana Hunter MD Primary Care Provider Shoshana Hunter MD Unavailable [phone] Encounter Details Date Type Department Care Team (Late st Contact Info) Description 07/22/2019 Ancillary Orders [facility] Central Scheduling [address] [place] [address] Amy Oconnor MD [address] [place] [address] [email or web address] Visit for screening mammogram Social History [...] documented in this encounter Care Teams Senior Software Qa Engineer Relationship Specialty Start Date End Date Shoshana Hunter MD [address] [facility] [place] [address] PCP - General Internal Medicine 05/09/16 Shoshana Hunter MD [address] [facility] [place] [address] Referring Physician Internal Medicine 02/27/25 documented as of this encounter Additional Source Comments The information contained in this document represents components of the legal health record. It is not the complete legal health record.[facility]
--- OUTSIDE RECORDS SUMMARY | 2025-07-26 13:25 | XMS_ITS | Clinical Summary ---
Author Organization [facility] Address [address] [place] [address] Care Team Providers Care Facilities Manager Name Role Phone Shoshana Hunter MD Primary Care Provider [phone] Social History Tobacco Use Types Packs/Day Years [...] age to complete this topic Care Teams Facilities Manager Relationship Specialty Start Date End Date Shoshana Hunter MD [address] [place] [address] PCP - General Internal Medicine 01/14/21
[2025-07-26 14:06] VITALS: BP 92/60; PULSE 64; RESP 16; TEMP 36.7; O2SAT 96; BMI 20.5
--- NOTE | 2025-07-26 14:06 | AM.OFFWIN_ITS ---
Intake Vital Signs 07/26/25 14:06 Height 5 ft 7 in Weight 131 lb BMI 20.5 BP 92/60 Blood Pressure Location Lt brachial Position Sitting Respiration 16 Pulse 64 Pulse Source Pulse Oximeter Temp 98.0 F Temp Source Oral Pulse Oximetry (%) 96 Oxygen Delivery Method Room Air Intake Visit Reasons: ep pain in right arm Intake Note: Pt is here today c/o Rt shoulder pain x1mo. Patient Tobacco Use Status: Current someday Tobacco user Allergies No Known Allergies (No Known Allergies*) Allergy (Verified 07/26/25 14:06) HPI HPI Comments History of Present Illness Details This is a 65-year-old right-handed female presenting for evaluation of pain in her right upper arm. Patient states she was seen a few weeks ago by her primary care physician and prescribed diclofenac and meloxicam which has improved the pain however the pain still persists. Patient denies any injury or trauma preceding the onset of her symptoms. She reports pain at rest which is exacerbated with movement. Patient has a physical job which she states has been difficult since the onset of her discomfort. [facility] Medical History Environmental and seasonal allergies Claustrophobia History of ductal carcinoma in situ (DCIS) of breast (~2015) Hepatitis C Tubular adenoma of colon (~2021) Osteopenia of left femoral neck (~2015) Nicotine dependence, cigarettes, uncomplicated Depression with anxiety History of varicose veins Spondylosis of lumbar region without myelopathy or radiculopathy History of COVID-19 Vaccination refused by patient Surgical History History of colonoscopy History of esophagogastroduodenoscopy (EGD) History of right mastectomy History of right breast biopsy History of endometrial ablation History of tubal ligation Family History Father CAD (coronary artery disease) Mother Medical history non-contributory Brother No problems noted. Sister No problems noted. Daughter No problems noted. Social History Housing: House Are you a primary daytime caregiver to a significant other at home: No Do you presently have visiting nurse or other home services: No Alcohol intake: current Alcohol intake frequency: holidays/special occasions only Patient Tobacco Use Status: Current someday Tobacco user Tobacco use type: Cigarette Cigarette Packs Per Day: 0 Cigarettes Per Day: 2 Years Smoked: (onset 13yo, 1/2ppd x 51yrs, now 2cig/day - 25pyh) e-Cigarette/Vaping Use: Never Used service: No Current occupational status: employed Sexual orientation: Straight/Heterosexual Gender identity: Female Cognitive needs: No Hearing needs: No Vision needs: No Review of Systems Const All systems reviewed & are unremarkable except as noted in HPI and below Denies body aches, Denies chills, Denies fever(s) and Denies frequent falls Eyes Reports no additional complaints ENT Reports no additional complaints Card Reports no additional complaints Resp Reports no additional complaints GI Reports no additional complaints Reports no additional complaints Musc Details: Pain right proximal biceps region radiating to shoulder. Denies arthralgias and Denies joint swelling Skin/Breast Reports system reviewed and no additional complaints, except as documented and Denies new lesions Neuro Denies frequent falls Psych Reports no additional complaints Trung/Lymph Reports no additional complaints Physical Exam Vital Signs: Last Vital Signs Temp 98.0 F 07/26/25 14:06 Pulse 64 07/26/25 14:06 Resp 16 07/26/25 14:06 BP 92/60 07/26/25 14:06 Pulse Ox 96 07/26/25 14:06 Oxygen Delivery Method Room Air 07/26/25 14:06 BMI result Body Mass Index 20.5 Back/Spine/Pelvis Cervical Spine: normal cervical lordosis, cervical ROM normal, No cervical muscular tenderness and No Cervical spine tenderness Skin General skin exam: no rashes or lesions noted Extrem Other: Overnight Babysitter strength equal bilaterally, pain in the right proximal humerus is not exacerbated with adduction, abduction, internal rotation or external rotation. Right upper extremity: normal to inspection, full ROM, shoulder/upper arm Details: normal to inspection, tenderness Location: of the A-C joint and of the proximal humerus; not of the clavicle, not over the biceps tendon and not over the subacromial bursa and normal ROM; no swelling, no deformity and no unusual warmth and elbow/forearm; no edema and joint enlargement noted Psych Appearance: grossly normal Mental Status: mental status grossly normal Insight: Good insight present (Psych) Judgement: Good judgement present (Psych) Results Reviewed Results Reviewed: Patient's images are reviewed. Official read from Radiology is pending at this time. Assessment & Plan Assessment & Plan (1) Right upper limb pain: Comment: Imaging of the right humerus and right shoulder has been obtained. There is no overt evidence of a calcific tendonitis and therefore a physical therapy referral will be placed. Code(s): M79.601 - Pain in right arm Plan: Patient will continue with the meloxicam and diclofenac as previously scheduled and an intake for physical therapy is pending at this time. Patient will follow up with primary care provider as an outpatient. Orders: Orders XR shoulder RT min 2V Today M79.601 - Pain in right arm XR humerus RT Today M79.601 - Pain in right arm PT Evaluation and Treatment Today M79.601 - Pain in right arm Coding Level of Care Code Est Pt Level 3 (69252) Diagnoses Right upper limb pain M79.601 Time Spent (min) 25
== END 2025-07-26 14:44 | disposition home or self-care (01) ==
PROVIDERS: PCP Internal Medicine; Visit Provider Physician Assistant
DX: M79.601 Pain in right arm (principal)

== ENCOUNTER → 2025-07-26 14:29 | Outpatient (BNV) | payer OTHER, SELFPAY | PROVIDERS: PCP Internal Medicine; Visit Provider Radiology Diagnostic Radiology | DX: M89.311 Hypertrophy of bone, right shoulder (principal); M79.601 Pain in right arm | CPT/HCPCS: 73030; 73060 ==

== ENCOUNTER 2025-07-31 13:17 | Outpatient (AMB) | payer OTHER, SELFPAY ==
[2025-07-31 13:23] VITALS: BP 132/80; PULSE 79; RESP 16; TEMP 36.6; O2SAT 97; BMI 21.3
--- NOTE | 2025-07-31 13:23 | A.OFFPC_ITS ---
Vital Signs 07/31/25 13:23 Height 5 ft 7 in Weight 136 lb BMI 21.3 BP 132/80 Blood Pressure Location Lt brachial Position Sitting Respiration 16 Pulse 79 Pulse Source Pulse Oximeter Temp 97.8 F Temp Source Oral Pulse Oximetry (%) 97 Oxygen Delivery Method Room Air Intake Visit Reasons: accommodations for work/forms Intake Note: Pt is here today to discuss work forms Allergies No Known Allergies (No Known Allergies*) Allergy (Verified 08/06/25 23:29) Medication List - Last Reconciled 08/06/25 by Shoshana Hunter MD ascorbate calcium (vitamin C) 500 mg PO DAILY calcium carbonate (Calcium 500) 500 mg PO DAILY cholecalciferol (vitamin D3) 25 mcg PO DAILY hydroxyzine HCl 12.5 - 25 mg PO BID PRN meloxicam 15 mg PO DAILY multivitamin 1 tab PO DAILY Tobacco use date assessed: 07/31/25 Fall risk assessment: No Falls in past year Last assessed Fall Risk: 07/31/25 Dental Screening Dental Screen Date: 07/31/25 Did you have a dental visit in the last 12 months?: No Did you have a dental problem in the last 6 months where you did not have access to dental care?: No Was dental information given to patient?: Patient has dentist HPI accommodations for work/forms HPI Details The patient is a 65-year-old female presenting with work-related environmental and seasonal allergies, claustrophobia, and associated health concerns. 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 The patient reports feeling sick to her stomach, experiencing nasal congestion, and nearly vomiting due to the dust and dirt in the new work environment. The patient has a history of claustrophobia, which is aggravated by the confined spaces in the new work area, particularly around the [employer] machine. She experiences anxiety and nausea when working in these conditions, which significantly impacts her ability to perform her job. She also reports depression with anxiety, which may be exacerbated by her current work situation and health concerns. Recently, the patient was evaluated for arm pain, and imaging revealed osteopenia and arthritis, particularly affecting her right arm. She experiences pain and swelling in the arm, which is aggravated by repetitive right-handed movements at work. [facility] Medical History Environmental and seasonal allergies Claustrophobia History of ductal carcinoma in situ (DCIS) of breast (~2015) Hepatitis C Tubular adenoma of colon (~2021) Osteopenia of left femoral neck (~2015) Nicotine dependence, cigarettes, uncomplicated Depression with anxiety History of varicose veins Spondylosis of lumbar region without myelopathy or radiculopathy History of COVID-19 Vaccination refused by patient Surgical History History of colonoscopy History of esophagogastroduodenoscopy (EGD) History of right mastectomy History of right breast biopsy History of endometrial ablation History of tubal ligation Family History Father CAD (coronary artery disease) Mother Medical history non-contributory Brother No problems noted. Sister No problems noted. Daughter No problems noted. Social History Housing: House Are you a primary daycare assistant to a significant other at home: No Do you presently have visiting nurse or other home services: No Alcohol intake: current Alcohol intake frequency: holidays/special occasions only Patient Tobacco Use Status: Current someday Tobacco user Tobacco use type: Cigarette Cigarette Packs Per Day: 0 Cigarettes Per Day: 2 Years Smoked: (onset 13yo, 1/2ppd x 51yrs, now 2cig/day - 25pyh) e-Cigarette/Vaping Use: Never Used service: No Current occupational status: employed Sexual orientation: Straight/Heterosexual Gender identity: Female Cognitive needs: No Hearing needs: No Vision needs: No Questionnaire PHQ-9 Over the last 2 weeks, how often have you been bothered by any of the following problems? 1. Little interest or pleasure in doing things: several days 2. Feeling down, depressed, or hopeless: several days 3. Trouble falling or staying asleep, or sleeping too much: more than half the days 4. Feeling tired or having little energy: more than half the days 5. Poor appetite or overeating: several days 6. Feeling bad about yourself - or that you are a failure or have let yourself or your family down: not at all 7. Trouble concentrating on things, such as reading the newspaper or watching television: several days 8. Moving or speaking so slowly that other people could have noticed. Or the opposite - being so fidgety or restless that you have been moving around a lot more than usual: not at all 9. Thoughts that you would be better off or of hurting yourself in some way: not at all Total score: 8 Depression Screening Interpretation: Positive (Followed by SARAH MEEKS at [facility]) Depression Screening Follow-up: Existing condition, In treatment and Community Mental Health Worker F/U Depression Screening Done: Yes 81619 - PHQ-9 Billing: Yes Source: Developed by Drs. Piyush Crandall, Melania Cunningham, Aleksander Lira and colleagues, with an educational claudio from [employer]. Thrive Questionnaire Date Thrive assessed: 02/10/25 I am a: Patient What is your living situation today?: I have a steady place to live Within the past 12 months, did the food you bought not last and you didn't have the money to get more?: I choose not to answer this question Within the past 12 months, did you worry whether your food would run out before you got money to buy more?: I choose not to answer this question Do you have trouble paying for medicines?: I choose not to answer this question Do you have trouble getting transportation to medical appointments?: No Do you have trouble paying your heating and electricity bill?: No Do you have trouble taking care of your child, family member or friend?: No Do you have trouble with day-to-day activities such as bathing, preparing meals, shopping, managing finances, etc.?: No Are you currently unemployed and looking for a job?: No Are you interested in more education?: No Please select the resources that you would like help with: None THRIVE Score: 0 AUDIT C Alcohol Use Questionnaire (AUDIT-C) 1. How often do you have a drink containing alcohol?: 2-4 times a month 2. How many drinks containing alcohol do you have on a typical day when you are drinking?: 3 or 4 3. How often do you have six or more drinks on one occasion?: Never Total Score: 3 CITLALLI-7 AMB Questionnaire CITLALLI-7 Date CITLALLI - 7 assessed: 11/15/24 Feeling nervous, anxious, or on edge: 2 = More than half the days Not being able to stop or control worryin = Several days Worrying too much about different things: 2 = More than half the days Trouble relaxin = More than half the days Being so restless that it is hard to sit still: 1 = Several days Becoming easily annoyed or irritable: 1 = Several days Feeling afraid as if something awful might happen: 1 = Several days Total CITLALLI-7 score (0-4 normal; 5-9 mild; 10-14 moderate; 15-21 severe): 10 Source: Developed by Drs. Piyush Crandall, Melania Cunningham, Aleksander Lira and colleagues, with an educational claudio from [employer]. Review of Systems Const All systems reviewed & are unremarkable except as noted in HPI and below Physical exam (Primary Care) Vital Signs: Last Vital Signs Temp 97.8 F 07/31/25 13:23 Pulse 79 07/31/25 13:23 Resp 16 07/31/25 13:23 BP 132/80 07/31/25 13:23 Pulse Ox 97 07/31/25 13:23 Oxygen Delivery Method Room Air 07/31/25 13:23 BMI result Body Mass Index 21.3 Tobacco/Smoking Status: Tobacco use Status Tobacco use date assessed 07/31/25 07/31/25 13:30 Patient Tobacco Use Status Current someday Tobacco 07/31/25 13:30 Tobacco use type Cigarette 07/31/25 13:30 e-Cigarette/Vaping Use Never Used 07/31/25 13:30 PHQ-9: PHQ-9 Score PHQ-9: Total score 8 08/06/25 23:52 Depression Screening Interpretation: Positive (Followed by SARAH MEEKS at [facility]) Depression Screening Follow-up: Existing condition, In treatment and Community Mental Health Worker F/U Thrive Assessment: Date of Thrive Assessment Date Thrive assessed 02/10/25 07/31/25 13:30 Const Other: Alert oriented x3, no acute distress ambulatory normal gait Orientation/consciousness: patient oriented x3 HENMT Head: Yes normocephalic Ears: external ears normal, TM's normal bilaterally and EAC's normal Face and sinus: Yes face symmetric Mouth: Normal oral and palatal mucosa present, oropharynx normal and moist mucous membranes Neck Neck: Yes full ROM, Yes no lymphadenopathy and Yes supple Resp Auscultation: clear to auscultation bilaterally Cardio Rate: regular rate Rhythm: regular rhythm Heart sounds: S1 normal heart sound present and S2 normal heart sound present Skin Lesions: no lesions Rashes: no rashes Neuro General: patient oriented x3, gait normal, moves all extremities and no focal motor deficits Extrem General: Yes normal to inspection, Yes no joint enlargement, Yes no clubbing, cyanosis or edema and Yes normal gait Psych Appearance: grossly normal and well kempt Mental Status: mental status grossly normal Speech and movement: Normal speech and movement present Affect: normal affect Coding Level of Care Code Tele Est Pt Level 4 (67036) Diagnoses Depression with anxiety F41.8 Claustrophobia F40.240 Environmental and seasonal allergies J30.89 Osteopenia of left femoral neck M85.852 Additional Codes PHQ-9 - 97779 - PHQ-9 Billing: Yes ([id number]) Assessment & Plan Assessment & Plan (1) Depression with anxiety: Comment: Followed Luis MEEKS Code(s): F41.8 - Other specified anxiety disorders Category: Medical (2) Claustrophobia: Code(s): F40.240 - Claustrophobia Category: Medical (3) Environmental and seasonal allergies: Code(s): J30.89 - Other allergic rhinitis Category: Medical (4) Osteopenia of left femoral neck: Onset Date: ~2015 Comment: (Bone Dexa Femoral T-score: -1.9 on 08/04/16, -2.0 on 11/06/19, -1.8 on 09/2724) Code(s): M85.852 - Other specified disorders of bone density and structure, left thigh Category: Medical Plan During the consultation, we discussed the patient's work-related health concerns, including her claustrophobia and allergies. I advised her to remain in her current job position to avoid exacerbating her symptoms. We also reviewed her recent diagnosis of osteopenia and arthritis, recommending physical therapy and adjustments to her work routine to manage symptoms. The importance of monitoring her mental health was emphasized, and potential counseling or medication adjustments were considered. Form for Request for work accommodation at [facility] completed today and given back to patient, copy of documents placed in her medical record Patient was informed and verbally consented to the use of an ambient scribe for clinic note documentation during this visit.
== END 2025-07-31 14:01 | disposition home or self-care (01) ==
LOC: HO.HMCC 13:18
PROVIDERS: PCP Internal Medicine; Visit Provider Internal Medicine
DX: J30.89 Other allergic rhinitis (principal); F41.8 Other specified anxiety disorders; F40.240 Claustrophobia; M85.852 Other specified disorders of bone density and structure, left thigh

== ENCOUNTER → 2025-07-31 13:17 | Outpatient (BNVA) | payer OTHER, SELFPAY | PROVIDERS: PCP Internal Medicine; Visit Provider Internal Medicine | DX: F41.8 Other specified anxiety disorders (principal); F40.240 Claustrophobia; J30.89 Other allergic rhinitis; M85.852 Other specified disorders of bone density and structure, left thigh; Z13.31 Encounter for screening for depression | CPT/HCPCS: 96127 ==

== ENCOUNTER 2025-08-21 11:40 | Outpatient (AMB) | payer OTHER, SELFPAY ==
--- OUTSIDE RECORDS SUMMARY | 2016-04-14 | XMS_ITS | Encounter Summary ---
Author Organization [facility] Address [address] [place] [address] [place] [address] Phone Care Team Providers Care Sales Representative Education Courses Name Role Phone Unavailable Primary Care Provider Unavailabl e Encounter Details Date Type Department Care Team (Late st Contact Info) Description 04/14/2016 Hospital Encounter [facility] IM OUTSIDE IMG [address] [place] [address] System, Provider Not In, [facility] [address] [address] Unknown, Unknown, Social History Tobacco Use Types [...] high school, GED, job training, learning the Nepali language, technical skills, or developing parenting skills)? [...] (No Interpretation) (04/14/2016 12:00 AM EDT) Narrative [facility] IMG INTERFACES - 05/11/2016 10:39 AM EDT This study is for PACS storage only and not for interpretation. Procedure Note SYSTEMGENERATED, DOCUMENTATION - 05/11/2016 This study is for PACS storage only and not for interpretation. us Provider Not In System PhD IMG OUTSIDE IMAGING W /OUT INTERPRETATION Final Result [facility] IMG INTERFACES documented in this encounter Visit Diagnoses Not on filedocumented in this encounter Additional Source Comments The information contained in this document represents components of the legal health record. It is not the complete legal health record.[facility]
--- OUTSIDE RECORDS SUMMARY | 2016-04-21 | XMS_ITS | Encounter Summary ---
Author Organization [facility] Address [address] [place] [address] [place] [address] Phone Care Team Providers Care Early Childhood Education Instructor Name Role Phone Unavailable Primary Care Provider Unavailabl e Encounter Details Date Type Department Care Team (Late st Contact Info) Description 04/21/2016 Hospital Encounter [facility] IMG OUTSIDE IMG [address] [place] [address] Coleen Ann MD [address] [place] [address] [email or web address] Social History Tobacco Use Types Packs/Day [...] high school, GED, job training, learning the American language, technical skills, or developing parenting skills)? [...] Or Consult (04/21/2016 12:00 AM EDT) Impressions [facility] - 06/01/2016 3:11 PM EDT IMPRESSION: [...] been entered into a reminder system. Narrative [facility] - 06/01/2016 3:11 PM EDT INTERPRETATION [...] is made with the previous examinations from [place] dated 05/03/2016, 04/21/2016, 04/14/16 and 03/22/2016 . [...] INTE RPRETATION Final Result Performing Organization Address City/State/[facility] Co de Phone Number [facility] [address] [facility] [place] [address] documented in this encounter Visit Diagnoses Diagnosis Breast cancer, right documented in this encounter Additional Source Comments The information contained in this document represents components of the legal health record. It is not the complete legal health record.[facility]
--- OUTSIDE RECORDS SUMMARY | 2016-04-21 00:15 | XMS_ITS | Encounter Summary ---
Author Organization [facility] Address [address] [place] [address] [place] [address] Phone Care Team Providers Care Ice Cream Van Vendor Name Role Phone Unavailable Primary Care Provider Unavailabl e Encounter Details Date Type Department Care Team (Late st Contact Info) Description 04/21/2016 12:15 AM EDT Hospital Encounter [facility] IMG OUTSIDE IMG [address] [place] [address] Coleen Ann MD [address] [address] [email or web address] Social History Tobacco Use Types Packs/Day Years [...] high school, GED, job training, learning the Kiswahili language, technical skills, or developing parenting skills)? [...] Or Consult (04/21/2016 12:15 AM EDT) Impressions [facility] - 06/01/2016 3:11 PM EDT IMPRESSION: [...] been entered into a reminder system. Narrative [facility] - 06/01/2016 3:11 PM EDT INTERPRETATION [...] is made with the previous examinations from [facility] dated 05/03/2016, 04/21/2016, 04/14/16 and 03/22/2016 . [...] OUTSIDE IMAGING W/ INTE RPRETATION Final Result [facility] [address] [facility] [place] [address] documented in this encounter Visit Diagnoses Diagnosis Breast cancer, right documented in this encounter Additional Source Comments The information contained in this document represents components of the legal health record. It is not the complete legal health record.[facility]
--- OUTSIDE RECORDS SUMMARY | 2016-04-21 00:30 | XMS_ITS | Encounter Summary ---
Author Organization [facility] Address [address] [place] [address] [place] [address] Phone Care Team Providers Care Development Expert Name Role Phone Unavailable Primary Care Provider Unavailabl e Encounter Details Date Type Department Care Team (Late st Contact Info) Description 04/21/2016 12:30 AM EDT Hospital Encounter [facility] IMG OUTSIDE IM 2013 [place] [address] System, Provider Not In, [facility] [address] [address] Unknown, Unknown, Social History Tobacco Use Types [...] high school, GED, job training, learning the Azeri language, technical skills, or developing parenting skills)? [...] (No Interpretation) (04/21/2016 12:30 AM EDT) Narrative [facility] IMG INTERFACES - 05/11/2016 10:37 AM EDT This study is for PACS storage only and not for interpretation. us Provider Not In System PhD IMG OUTSIDE IMAGING W /OUT INTERPRETATION Final Result [facility] IMG INTERFACES documented in this encounter Visit Diagnoses Not on filedocumented in this encounter Additional Source Comments The information contained in this document represents components of the legal health record. It is not the complete legal health record.[facility]
--- OUTSIDE RECORDS SUMMARY | 2016-05-03 | XMS_ITS | Encounter Summary ---
Author Organization [facility] Address [address] [place] [address] [place] [address] Phone Care Team Providers Care Corporation Officer Name Role Phone Unavailable Primary Care Provider Unavailabl e Encounter Details Date Type Department Care Team (Late st Contact Info) Description 05/03/2016 Hospital Encounter [facility] IM OUTSIDE IMG [address] [place] [address] System, Provider Not In, PhD [facility] [address] [address] Unknown, Unknown, Social History Tobacco Use Types [...] (No Interpretation) (05/03/2016 12:00 AM EDT) Narrative [facility] IMG INTERFACES - 05/11/2016 10:36 AM EDT This study is for PACS storage only and not for interpretation. us Provider Not In System PhD IMG OUTSIDE IMAGING W /OUT INTERPRETATION Final Result [facility] IMG INTERFACES documented in this encounter Visit Diagnoses Not on filedocumented in this encounter Additional Source Comments The information contained in this document represents components of the legal health record. It is not the complete legal health record.[facility]
[2025-08-21 12:14] VITALS: BP 100/70; PULSE 77; TEMP 36.8; O2SAT 96; BMI 20.4
--- NOTE | 2025-08-21 12:14 | MHC.OFFWIV ---
Intake Vital Signs 08/21/25 12:14 Height 5 ft 7 in Weight 130 lb BMI 20.4 BP 100/70 Blood Pressure Location Lt brachial Position Sitting Pulse 77 Pulse Source Pulse Oximeter Temp 98.2 F Temp Source Oral Pulse Oximetry (%) 96 Oxygen Delivery Method Room Air Intake Visit Reasons: EP Depression, anxiety Intake Note: EP complains of sleeplessness, headache, job related anxiety (her company may possibly be downsized and she may face a salary cut) since Aug 08, 2025. Patient Tobacco Use Status: Current someday Tobacco user Allergies No Known Allergies (No Known Allergies*) Allergy (Verified 08/21/25 12:22) Medication List - Last Reconciled 08/21/25 by Magui Luevano NP ascorbate calcium (vitamin C) 500 mg PO DAILY calcium carbonate (Calcium 500) 500 mg PO DAILY cholecalciferol (vitamin D3) 25 mcg PO DAILY hydroxyzine HCl 12.5 - 25 mg PO BID PRN meloxicam 15 mg PO DAILY multivitamin 1 tab PO DAILY Do you need a note to return to daycare/school/sports/work: Yes HPI HPI Comments History of Present Illness Details 65 y/o Female patient who presents to the walk in clinic with c/o Job related Anxiety, sleeplessness and Headaches. Her Job will be downsizing as of August 08 and worried she might be losing her Job. She was previously on Bupropion 150 SR until May 2025 - she abruptly stopped the medication because she felt better and did not need it anymore. She is currently taking Hydroxyzine 25 mg at Bedtime. She does have a Mental Health Therapist at [facility] and she has an appointment with her 08/30. Denies SA or SI. She is thinking of getting FMLA paperwork - she will bring them in for PCP to sign on her next appointment. [facility] Medical History Environmental and seasonal allergies Claustrophobia History of ductal carcinoma in situ (DCIS) of breast (~2015) Hepatitis C Tubular adenoma of colon (~2021) Osteopenia of left femoral neck (~2015) Nicotine dependence, cigarettes, uncomplicated Depression with anxiety History of varicose veins Spondylosis of lumbar region without myelopathy or radiculopathy History of COVID-19 Vaccination refused by patient Surgical History History of colonoscopy History of esophagogastroduodenoscopy (EGD) History of right mastectomy History of right breast biopsy History of endometrial ablation History of tubal ligation Family History Father CAD (coronary artery disease) Mother Medical history non-contributory Brother No problems noted. Sister No problems noted. Daughter No problems noted. Social History Housing: House Are you a primary director of health care marketing to a significant other at home: No Do you presently have visiting nurse or other home services: No Alcohol intake: current Alcohol intake frequency: holidays/special occasions only Patient Tobacco Use Status: Current someday Tobacco user Tobacco use type: Cigarette Cigarette Packs Per Day: 0 Cigarettes Per Day: 2 Years Smoked: (onset 13yo, 1/2ppd x 51yrs, now 2cig/day - 25pyh) e-Cigarette/Vaping Use: Never Used service: No Current occupational status: employed Sexual orientation: Straight/Heterosexual Gender identity: Female Cognitive needs: No Hearing needs: No Vision needs: No Review of Systems Const All systems reviewed & are unremarkable except as noted in HPI and below Physical Exam Vital Signs: Last Vital Signs Temp 98.2 F 08/21/25 12:14 Pulse 77 08/21/25 12:14 BP 100/70 08/21/25 12:14 Pulse Ox 96 08/21/25 12:14 Oxygen Delivery Method Room Air 08/21/25 12:14 BMI result Body Mass Index 20.4 Const General: no acute distress Nutritional Appearance: well nourished Orientation/consciousness: patient oriented x3 Resp Effort & Inspection: normal respiratory effort Cardio Rhythm: regular rhythm Neuro General: patient oriented x3, gait normal and moves all extremities Psych Speech and movement: Normal speech and movement present Affect: Sad affect present and Anxious affect present Attitude: cooperative Thought process: Normal thought process present Assessment & Plan Assessment & Plan (1) Depression with anxiety: Comment: Followed Luis MEEKS Code(s): F41.8 - Other specified anxiety disorders Plan: Pt willing to go back on Bupropion 150 mg SR Advised to take Hydroxyzine TID PRN for anxiety Advised to call her Therapist for a sooner session Advised her to call [facility] and ask to be connected with a Psychiatrist for medication management. Advised to make an appointment with PCP Medications: New bupropion HCl SR (Wellbutrin SR) 150 mg PO QAM 90 tabs 1RF F41.8 - Other specified anxiety disorders Coding Level of Care Code Est Pt Level 4 (52980) Diagnoses Depression with anxiety F41.8 Time Spent (min) 20
--- OUTSIDE RECORDS SUMMARY | 2025-08-21 14:41 | XMS_ITS | Clinical Summary ---
Author Organization [facility] Address [address] [place] [address] Care Team Providers Care Veterinary Technician Assistant Name Role Phone Shoshana Hunter MD Primary Care Provider [phone] Social History Tobacco Use Types Packs/Day Years [...] age to complete this topic Care Teams Veterinary Technician Assistant Relationship Specialty Start Date End Date Shoshana Hunter MD [address] [place] [address] PCP - General Internal Medicine 01/14/21
--- OUTSIDE RECORDS SUMMARY | 2025-08-21 14:41 | XMS_ITS | Encounter Summary ---
Author Organization [facility] Address [address] [place] [address] [place] [address] Phone Care Team Providers Care Meteorology Teacher Name Role Phone Shoshana Hunter MD Primary Care Provider Shoshana Hunter MD Unavailable [phone] Encounter Details Date Type Department Care Team (Late st Contact Info) Description 07/08/2019 Ancillary Orders [facility] Central Scheduling [address] [place] [address] Amy Oconnor MD [address] [place] [address] [email or web address] Visit for screening mammogram Social [...] mammogram documented in this encounter Care Teams Meteorology Teacher Relationship Specialty Start Date End Date Shoshana Hunter MD [address] [facility] [place] [address] PCP - General Internal Medicine 05/09/16 Shoshana Hunter MD [address] [facility] [place] [address] Referring Physician Internal Medicine 02/27/25 documented as of this encounter Additional Source Comments The information contained in this document represents components of the legal health record. It is not the complete legal health record.[facility]
--- OUTSIDE RECORDS SUMMARY | 2025-08-21 14:41 | XMS_ITS | Patient Health Record ---
Author Organization [facility] Address [address] [facility] [place] [address] Care Team Providers Care Security Management Specialist Name Role Phone Dale MESA, Shoshana Wilkerson Primary Care Provider Un available Gloria Poe Unavailable [phone] Reason For Referral No Information Medications Medication [...] Problem Acquired hammer toe of right foot ([id number] 105) Other hammer toe(s) (acquired), right foot (M20.41) Active confirmed Problem Acquired hammer toe of left foot ([id number] 103) Other hammer toe(s) (acquired), left foot (M20.42) Active confirmed Plan Of Treatment No Information Insurance Providers Payer Name Payer Address Payer Phone Subscriber Number Group Number Insured Name Patient Relationship to Insured Coverage Start Date Coverage End Date Cigna [address] [place] [phone] [id number] Pratibha Burdick Self - patient is the [...]
--- OUTSIDE RECORDS SUMMARY | 2025-08-21 14:41 | XMS_ITS | Encounter Summary ---
Author Organization [facility] Address [address] [place] [address] [place] [address] Phone Care Team Providers Care Funeral Home Attendant Name Role Phone Shoshana Hunter MD Primary Care Provider Shoshana Hunter MD Unavailable [phone] Encounter Details Date Type Department Care Team (Late st Contact Info) Description 06/23/2020 Procedure Pass [facility]- Breast Imaging, [facility] [address] [place] [address] Social History Tobacco Use Types Packs/Day Years [...] on filedocumented in this encounter Care Teams Funeral Home Attendant Relationship Specialty Start Date End Date Shoshana Hunter MD [facility] [place] [address] PCP - General Internal Medicine 05/09/16 Shoshana Hunter MD [address] [place] [address] [place] [address] Referring Physician Internal Medicine 02/27/25 documented as of this encounter Additional Source Comments The information contained in this document represents components of the legal health record. It is not the complete legal health record.[facility]
--- OUTSIDE RECORDS SUMMARY | 2025-08-21 14:41 | XMS_ITS | Encounter Summary ---
Author Organization [facility] Address [address] [place] [address] [place] [address] Phone Care Team Providers Care Yarn Handler Name Role Phone Shoshana Hunter MD Primary Care Provider Shoshana Hunter MD Unavailable [phone] Encounter Details Date Type Department Care Team (Late st Contact Info) Description 05/11/2016 Ancillary Orders [facility] Services [address] [place] [address] System, Provider Not In, [place] [address] Social History Tobacco Use Types Packs/Day Years [...] (No Interpretation) (05/03/2016 12:00 AM EDT) Narrative [facility] IMG INTERFACES - 05/11/2016 10:36 AM EDT This study is for PACS storage only and not for interpretation. us Provider Not In System PhD IMG OUTSIDE IMAGING W /OUT INTERPRETATION Final Result Performing Organization Address City/[facility] de Phone Number NW IMG INTERFACES * Mammogram Outside (No Interpretation) (04/21/2016 12:30 AM EDT) Narrative [facility] INTERFACES - 05/11/2016 10:37 AM EDT This study is for PACS storage only and not for interpretation. us Provider Not In System PhD IMG OUTSIDE IMAGING W /OUT INTERPRETATION Final Result Performing Organization Address City/[facility] de Phone Number NWH IMG INTERFACES * [...] /OUT INTERPRETATION Final Result Performing Organization Address [facility] de Phone Number NW IMG INTERFACES * [...] /OUT INTERPRETATION Final Result Performing Organization Address [facility] de Phone Number NW IMG INTERFACES documented in this encounter Visit Diagnoses Not on filedocumented in this encounter Care Teams Yarn Handler Relationship Specialty Start Date End Date Shoshana Hunter MD [address] [facility] [place] [address] PCP - General Internal Medicine 05/09/16 Shoshana Hunter MD [facility] [place] [address] Referring Physician Internal Medicine 02/27/25 documented as of this encounter Additional Source Comments The information contained in this document represents components of the legal health record. It is not the complete legal health record.[facility]
--- OUTSIDE RECORDS SUMMARY | 2025-08-21 14:41 | XMS_ITS | Clinical Summary ---
Author Organization [facility] Address [address] [place] [address] Care Team Providers Care Quality Assurance Engineer Name Role Phone Shoshana Hunter MD [...] age to complete this topic Care Teams Quality Assurance Engineer Relationship Specialty Start Date End Date Shoshana Hunter MD [address] [place] [address] PCP - General Internal Medicine 01/14/21
--- OUTSIDE RECORDS SUMMARY | 2025-08-21 14:41 | XMS_ITS | Encounter Summary ---
Author Organization [facility] Address [address] [place] [address] [place] [address] Phone Care Team Providers Care Mat Gauger Name Role Phone Shoshana Hunter MD Primary Care Provider Shoshana Hunter MD Unavailable [phone] Encounter Details Date Type Department Care Team (Late st Contact Info) Description 07/22/2019 Ancillary Orders [facility] Central Scheduling [address] [place] [address] Amy Oconnor MD [address] [place] [address] [email or web address] Visit for screening [...] mammogram documented in this encounter Care Teams Mat Gauger Relationship Specialty Start Date End Date Shoshana Hunter MD [address] [facility] [place] [address] PCP - General Internal Medicine 05/09/16 Shoshana Hunter MD [address] [facility] [place] [address] Referring Physician Internal Medicine 02/27/25 documented as of this encounter Additional Source Comments The information contained in this document represents components of the legal health record. It is not the complete legal health record.[facility]
--- OUTSIDE RECORDS SUMMARY | 2025-08-21 14:41 | XMS_ITS | Clinical Summary ---
Author Organization [facility] Address [address] [place] [address] [place] [address] Phone Care Team Providers Care Belling Machine Operator Name Role Phone Shoshana Hunter MD Primary Care Provider hSoshana Hunter MD Unavailable [phone] Allergies No known active allergies Medications BIOTIN [...] high school, GED, job training, learning the Wolof language, technical skills, or developing parenting skills)? [...] this topic Medical Devices Implanted Type Area Supervisor Hard Candy Device Identifier Shelf Expiration Date Model / Serial / Lot R Breast Chips Dental N/A: Mouth Description:2 dental implant s, front/middle lower jaw Graft Soft Tissue 19.3x9.6cm Med 1.6 Plus/Minus .4mm Contour Large Perforated Rtu Alloderm Regenerative Matrix Implantable Bx/1ea - [id number] Implanted:Qty: 1 on 06/17/2016 by Mitch Nickerson MD, FACS at [facility] Right: Breast LIFECELL AMOS 07/22/2017 [id number] / / [id number] Implant Breast 3.1cmx12.8cm 300ml Round Smooth Moderate Profile Memorygel - [id number] Implanted:Qty: 1 on 06/17/2016 by Mitch Nickerson MD, FACS at [facility] Right: Breast MENTOR AMOS 07/31/2020 [id number] / / [id number] Srl Natrelle Inspira Breast Implant 200cc Implanted:Qty: 1 on 07/12/2016 by Mitch Nickerson MD, FACS at [facility] Right: Breast 10/12/2020 [id number] / / [id number] Breast Implant Gel Memorygel 3.1cmx12.8 300 Memory Profile Moderate Classic Smooth Round - [id number] Implanted:Qty: 1 on 10/01/2019 by Mitch Nickerson MD, FACS at [facility] Breast MENTOR AMOS 05/25/2024 [id number] / [id number] / [id number] Description:The implant type , laterality (when [...] [facility] [address] [place] [address] Referring Physician: AMY VIVAS M.D. Study: Bone densitometry was performed on Hologic DXA. Accession number: [id number] INDICATION: 57 y/o postmenopausal woman with history [...] (No Interpretation) (05/03/2016 12:00 AM EDT) Narrative [facility] IMG INTERFACES - 05/11/2016 10:36 AM EDT This study is for PACS storage only and not for interpretation. Provider Not In System PhD IMG OUTSIDE IMAGING W /OUT INTERPRETATION Final Result [facility] IMG INTERFACES from Last 3 Months or Most Recently Relevant to Health Maintenance [place] [address] [place] [id number] CIGNA PPO CIGNA PPO CIGNA PPO CIGNA PPO CIGNA PPO CIGNA PPO CIGNA PPO CIGNA PPO CIGNA PPO CIGNA PPO [facility] Address: [facility] [id number] [address] [id number] Advance Directives For more information, please contact: [phone] (9AM - 5PM [facility], Monday-Monday) * Full Code (Presumed) (Latest Code Status on File) Date Activated Date Inactivated Comments 06/17/2016 11:11 AM 06/18/2016 7:22 PM * Full Code (Presumed) Date Activated Date Inactivated Comments 06/17/2016 6:25 AM 06/17/2016 11:11 AM Care Teams Belling Machine Operator Relationship Specialty Start Date End Date Shoshana Hunter MD [facility] [place] [address] PCP - General Internal Medicine 05/09/16 Shoshana Hunter MD [address] [place] [address] [place] [address] Referring Physician Internal Medicine 02/27/25 Additional Source Comments The information contained in this document represents components of the legal health record. It is not the complete legal health record.[facility]
--- OUTSIDE RECORDS SUMMARY | 2025-08-21 14:41 | XMS_ITS | Encounter Summary ---
Author Organization [facility] Address [address] [place] [address] Phone Care Team Providers Care Linux Systems Engineer Name Role Phone Shoshana Hunter MD Primary Care Provider Shoshana Hunter MD Unavailable [phone] Reason for Visit * Reason Onset Date Comments Post Discharge Follow Up Call 06/21/2016 Encounter Details Date Type Department Care Team (Late st Contact Info) Description 06/21/2016 Telephone [facility] [address] [place] [address] Gabriela Blackwell RN [address] [place] [address] [email or web address] Discharge Follow Up Call Social [...] on filedocumented in this encounter Care Teams Linux Systems Engineer Relationship Specialty Start Date End Date Shoshana Hunter MD [facility] [place] [address] PCP - General Internal Medicine 05/09/16 Shoshana Hunter MD [address] [facility] [place] [address] Referring Physician Internal Medicine 02/27/25 documented as of this encounter Additional Source Comments The information contained in this document represents components of the legal health record. It is not the complete legal health record.[facility]
--- OUTSIDE RECORDS SUMMARY | 2025-08-21 14:41 | XMS_ITS | Encounter Summary ---
Author Organization [facility] Address [address] [place] [address] [place] [address] Phone Care Team Providers Care Technical Cable Jointer Name Role Phone Shoshana Hunter MD Primary Care Provider Shoshana Hunter MD Unavailable [phone] Encounter Details Date Type Department Care Team (Late st Contact Info) Description 10/01/2019 Procedure Pass [facility] PERIOPERATIVE DEPT [address] [place] [address] Social History Tobacco Use Types [...] on filedocumented in this encounter Care Teams Technical Cable Jointer Relationship Specialty Start Date End Date Shoshana Hunter MD [address] [place] [address] PCP - General Internal Medicine 05/09/16 Shoshana Hunter MD [address] [place] [address] [place] [address] Referring Physician Internal Medicine 02/27/25 documented as of this encounter Additional Source Comments The information contained in this document represents components of the legal health record. It is not the complete legal health record.[facility]
--- OUTSIDE RECORDS SUMMARY | 2025-08-21 14:41 | XMS_ITS | Encounter Summary ---
Author Organization [facility] Address [address] [place] [address] [place] [address] Phone Care Team Providers Care Radio Producer Name Role Phone Shoshana Hunter MD Primary Care Provider Shoshana Hunter MD Unavailable Encounter Details Date Type Department Care Team (Late st Contact Info) Description 12/15/2020 Procedure Pass [facility]- Breast Imaging, [facility] [address] [place] [address] Social History Tobacco Use Types Packs/Day Years [...] filedocumented in this encounter Care Teams Radio Producer Relationship Specialty Start Date End Date Shoshana Hunter MD [address] [facility] [place] [address] PCP - General Internal Medicine 05/09/16 Shoshana Hunter MD [address] [place] [address] [place] [address] Referring Physician Internal Medicine 02/27/25 documented as of this encounter Additional Source Comments The information contained in this document represents components of the legal health record. It is not the complete legal health record.[facility]
--- OUTSIDE RECORDS SUMMARY | 2025-08-21 14:41 | XMS_ITS | Encounter Summary ---
Author Organization [facility] Address [address] [place] [address] [place] [address] Phone Care Team Providers Care Study Manager Name Role Phone Shoshana Hunter MD Primary Care Provider Shoshana Hunter MD Unavailable [phone] Encounter Details Date Type Department Care Team (Late st Contact Info) Description 07/08/2019 Ancillary Orders [facility], [facility] [place] [address] [facility] [place] [address] Amy Oconnor MD [address] [place] [address] [email or web address] Social History Tobacco Use Types Packs/Day [...] on filedocumented in this encounter Care Teams Study Manager Relationship Specialty Start Date End Date Shoshana Hunter MD [facility] [place] [address] PCP - General Internal Medicine 05/09/16 Shoshana Hunter MD [address] [facility] [place] [address] Referring Physician Internal Medicine 02/27/25 documented as of this encounter Additional Source Comments The information contained in this document represents components of the legal health record. It is not the complete legal health record.[facility]
--- OUTSIDE RECORDS SUMMARY | 2025-08-21 14:41 | XMS_ITS | Encounter Summary ---
Author Organization [facility] Address [address] [place] [address] Phone Care Team Providers Care Firebrick And Refractory Tile Repairer Name Role Phone Shoshana Hunter MD Primary Care Provider Shoshana Hunter MD Unavailable [phone] Encounter Details Date Type Department Care Team (Late st Contact Info) Description 06/01/2016 Ancillary Orders [facility] [address] [place] [address] Coleen Ann MD [address] [place] [address] [email or web address] Breast cancer, right (Primary Dx) Social History [...] is made with the previous examinations from [facility] dated 05/03/2016, 04/21/2016, 04/14/16 and 03/22/2016 . [...] right documented in this encounter Care Teams Firebrick And Refractory Tile Repairer Relationship Specialty Start Date End Date Shoshana Hunter MD [address] [facility] [place] [address] PCP - General Internal Medicine 05/09/16 Shoshana Hunter MD [address] [facility] [place] [address] Referring Physician Internal Medicine 02/27/25 documented as of this encounter Additional Source Comments The information contained in this document represents components of the legal health record. It is not the complete legal health record.[facility]
--- OUTSIDE RECORDS SUMMARY | 2025-08-21 14:41 | XMS_ITS | Encounter Summary ---
Author Organization [facility] Address [address] [place] [address] [place] [address] Phone Care Team Providers Care Assembly Machine Offbearer Name Role Phone Shoshana Hunter MD Primary Care Provider Shoshana Hunter MD Unavailable Encounter Details Date Type Department Care Team (Late st Contact Info) Description 05/22/2018 Procedure Pass [facility] PERIOPERATIVE DEPT [address] [place] [address] Social History Tobacco Use Types [...] on filedocumented in this encounter Care Teams Assembly Machine Offbearer Relationship Specialty Start Date End Date Shoshana Hunter MD [address] [place] [address] [place] [address] PCP - General Internal Medicine 05/09/16 Shoshana Hunter MD [facility] [place] [address] Referring Physician Internal Medicine 02/27/25 documented as of this encounter Additional Source Comments The information contained in this document represents components of the legal health record. It is not the complete legal health record.[facility]
--- OUTSIDE RECORDS SUMMARY | 2025-08-21 14:41 | XMS_ITS | Encounter Summary ---
Author Organization [facility] Address [address] [place] [address] [place] [address] Phone Care Team Providers Care Hydroelectric Plant Electrician Name Role Phone Shoshana Hunter MD Primary Care Provider Shoshana Hunter MD Unavailable [phone] Encounter Details Date Type Department Care Team (Late st Contact Info) Description 07/23/2020 Ancillary Orders [facility] Central Scheduling [address] [place] [address] Shoshana Hunter MD [address] [facility] [place] [address] Visit for screening mammogram Social History Tobacco [...] mammogram documented in this encounter Care Teams Hydroelectric Plant Electrician Relationship Specialty Start Date End Date Shoshana Hunter MD [address] [facility] [place] [address] PCP - General Internal Medicine 05/09/16 Shoshana Hunter MD [address] [place] [address] [place] [address] Referring Physician Internal Medicine 02/27/25 documented as of this encounter Additional Source Comments The information contained in this document represents components of the legal health record. It is not the complete legal health record.[facility]
--- OUTSIDE RECORDS SUMMARY | 2025-08-21 14:41 | XMS_ITS | Encounter Summary ---
Author Organization [facility] Address [address] [place] [address] [place] [address] Phone Care Team Providers Care Reworker Name Role Phone Shoshana Hunter MD Primary Care Provider Shoshana Hunter MD Unavailable [phone] Encounter Details Date Type Department Care Team (Late st Contact Info) Description 05/11/2020 Ancillary Orders [facility] Central Scheduling [address] [place] [address] Shoshana Hunter MD [facility] [place] [address] Visit for screening mammogram Social History Tobacco [...] mammogram documented in this encounter Care Teams Reworker Relationship Specialty Start Date End Date Shoshana Hunter MD [address] [facility] [place] [address] PCP - General Internal Medicine 05/09/16 Shoshana Hunter MD [address] [facility] [place] [address] Referring Physician Internal Medicine 02/27/25 documented as of this encounter Additional Source Comments The information contained in this document represents components of the legal health record. It is not the complete legal health record.[facility]
--- OUTSIDE RECORDS SUMMARY | 2025-08-21 14:41 | XMS_ITS | Data Portability ---
Author Organization [facility] [address] Address [address] [place] [address] Care Team Providers Care Pararescue Manager Name Role Phone JONY MICHAEL Primary Care Provider Assessment No assessment recorded. Plan of Treatment Reminders Order Date Submit Date Provider Last Modified By Organization Details Last Modified Time Details Appointments None recorded . Lab None recorded . Referral orthoped ic surgeon referral 2022 023 [email or web address] [facility] (Seng Mckeon), [address] [place], [address], 10:59:07 Procedures None recorded . Surgeries applicat ion of naif tape/spl int, phalanx (toe) (SURG) 2022 023 [email or web address] Not available 08:47:35 Imaging XR, toe(s), 2 or more view - right 2022 023 [facility]ARR[facility], [address] [place] [address], [address], 3 09:43:39 Medication Orders None recorded . Patient TargetsNo targets recorded. Patient Instructions Encounter Date Encounter Id Patient Instructions Last Modified By Organization Details Last Modified Time 05/20/2023 [id number] broken toe: care instructions [email or web address] Not available 05/20/2023 09:27:42 Keep toe naif taped as instructed. Wear the cast shoe while walking. Elevate your foot as much as possible. Follow-up with your doctor in one week. Over the counter tylenol or ibuprofen may be taken for pain per package instructions as needed. See printed instructions. Seek Emergency Medical evaluation for any worsening symptoms. Not available 05/20/2023 09:27:41 Patient contacte d after official radiology report returned and orthopedic referral made to [facility] for her. [email or web address] Not available 05/20/2023 10:49:19 Reason for Referral [...] more view No observ ation record ed. [email or web address] [facility] [address] [place], [address], 05/20/2023 10:49:56 Result Notes None recorded. Problems No Known Problems Procedures Surgical History Date Name Laterality Status Provider Name and Address Organization Details Recorded Time NAIF TAPE completed Carly Krueger MD [address] [place], [address], [place] - [facility] 05/20/2023 09:34:42 excision [...] rating [Score] - Reported Body temperature Systolic And Diastolic Provider Name and Address Organization Details Last Updated DateTime 3 170.18 cm 23.5 kg/m2 15539.8 6 g 98 % 98 % 81 /min 18 /min 5 96.3 [degF] 129/82 mm[Hg] Radha KENT [employer] 08:35:25 Social History Question Answer Notes LastModified by [employer] Details LastModified Time Tobacco Smoking Status Current Every Day Smoker Radha corrigan PA [employer] 05/20/2023 08:35:07 Have You Had Direct Contact, Or Contact During Intimacy, With Monkeypox Rash, Scabs, Or Body Fluids From A Person With Monkeypox? No Information not available 05/20/2023 How Much Tobacco Do You Smoke? 1 PPW Information not available 05/20/2023 Have You Recently Traveled Abroad? No Information not available 05/20/2023 Sex: Unknown Functional Status Question Answer Note LastModified by [employer] Details LastModified Time Do you use any [...] split virus, quadrivalent, preservative 8 completed Radha [place] null, [place] - [facility] 05/20/2023 08:34:25 Influenza, split virus, quadrivalent, preservative 6 completed Radha [place] null, [place] - [facility] 05/20/2023 08:34:25 Influenza, split virus, quadrivalent, preservative 9 completed Radha [place] null, [place] - [facility] 05/20/2023 08:34:25 Influenza, MDCK, quadrivalent, PF 7 completed Radha [place] null, [place] - [facility] 05/20/2023 08:34:25 Tdap 8 completed Radha [place] null, [place] - [facility] 05/20/2023 08:34:25 Td (adult), 2 Lf tetanus toxoid, preservative free, adsorbed 6 completed Radha Balwinder null, PA - [facility] 05/20/2023 08:34:25 Td (adult), 2 Lf tetanus toxoid, preservative free, adsorbed 9 completed Radha [place] null, [place] - [facility] 05/20/2023 08:34:25 Past Encounters Encounter ID Performer Location Encounter Start Date Encounter Closed Date Diagnosis/Indication Diagnosis SNOMED-CT Code Diagnosis ICD10 Code Diagnosis IMO Codes Diagnosis Note [id number] [address] [address] [address] 06/10/2017 13:44:38 06/10/2017 15:04:45 [id number] [address] [address] [address] 10/15/2019 14:46:06 10/15/2019 15:21:06 [id number] [address] [place] [address] 12/23/2015 15:01:16 12/23/2015 15:33:51 [id number] [address] [place] [address] 09/26/2018 15:26:55 09/26/2018 16:30:37 [id number] [address] [place] [address] 12/10/2015 15:37:10 12/10/2015 16:04:06 [id number] Carly Krueger MD [address] [place] [address] 05/20/2023 08:29:54 05/20/2023 09:36:13 Contusion of right great toe 8120447473 [id number] S90.111A Closed fra cture of proximal phalanx of great toe 184979677 S92.414A Health Concerns Section Related Observation LastModified by Organization Detai ls LastModified Time None Recorded Concern Status LastModified by Organization Details LastModified Time None Recorded Advance Directives Directive None Recorded Payers Insurance Date Sequence Insurance Name Policy Number Policy Howard Covered Member ID Howard Member ID Guarantor Name 05/21/2023 1 CHELSEY [id number] Pratibha Burdick [id number] 1 [id number] Pratibha Burdick Notes Date Note Type Note Provider Name and Address Organization Details Recorded Time 05/20/2023 text/html ToesReported by PatientHPIFor associated symptoms, patient reportsswellingbut reportsno weakness,no numbness,no tingling,no redness,no warmth,no ecchymosis,no catching/locking,no popping/clicking,no buckling,no grinding,no instability,no drainage,no fever, andno chills(limited flexion due to pain.). For source of patient information, patient reportsinformation obtained from patientandpatient arrived at urgent care ambulatory. For location, patient reportsright(great toe, ip joint, proximal phalanx and mtp joint.). For quality, patient reportsaching,throbbing , andconstant. For severity, patient reportsmoderate. For duration, patient reports3 days. For timing, patient reportsacute. For alleviating factors, patient reportsrestandelevation . For aggravating factors, patient reportsstanding,rom, andweightbearing. For previous surgery, patient reportsnone. For previous injections, patient reportsnone. For previous pt, patient reportsnone. For context, (kicked rubber edging with foot.).63 year old female presenting for evaluation of right great toe pain and swelling after kicking a piece of rubber lawn edging 3 days ago. No numbness or weakness of the extremities but has limited movement due to pain. The pain is worse with palpation and weight bearing as well. Carly Krueger MD [address] [facility] [facility] [place], [address], [place] - [facility] 05/20/2023 12:34:15 OBGyn Episode No OBEpisode recorded.
== END 2025-08-21 13:12 | disposition home or self-care (01) ==
PROVIDERS: PCP Internal Medicine; Visit Provider Nurse Practitioner Family
DX: F41.8 Other specified anxiety disorders (principal)

== ENCOUNTER 2025-08-25 08:59 | Outpatient (AMB) | payer OTHER, SELFPAY ==
--- OUTSIDE RECORDS SUMMARY | 2025-08-25 09:43 | XMS_ITS | Patient Health Record ---
Author Organization [facility] Address [address] [place] [address] Care Team Providers Care Contact Centre Supervisor Name Role Phone Dale MESA, Shoshana Wilkerson Primary Care Provider Un available Gloria Poe Unavailable [phone] Reason For Referral No Information Medications Medication [...] Problem Acquired hammer toe of right foot (2392547721145 105) Other hammer toe(s) (acquired), right foot (M20.41) Active confirmed Problem Acquired hammer toe of left foot (9048271679660 103) Other hammer toe(s) (acquired), left foot (M20.42) Active confirmed Plan Of Treatment No Information Insurance Providers Payer Name Payer Address Payer Phone Subscriber Number Group Number Insured Name Patient Relationship to Insured Coverage Start Date Coverage End Date Cigna [address] [place] [phone] [id number] Pratibha Burdick Self - patient is the [...]
--- OUTSIDE RECORDS SUMMARY | 2025-08-25 09:43 | XMS_ITS | Clinical Summary ---
Author Organization [facility] Address [address] [place] [address] Care Team Providers Care Software Engineering Manager Name Role Phone Shoshana Hunter MD Primary Care Provider [phone] Social History Tobacco Use Types Packs/Day Years [...] age to complete this topic Care Teams Software Engineering Manager Relationship Specialty Start Date End Date Shoshana Hunter MD [address] [place] [address] PCP - General Internal Medicine 01/14/21
--- OUTSIDE RECORDS SUMMARY | 2025-08-25 09:43 | XMS_ITS | Data Portability ---
Author Organization [facility], [address] Address [address] [place] [address] Care Team Providers Care Tailoring Teacher Name Role Phone JONY MICHAEL Primary Care Provider [phone] Assessment No assessment recorded. Plan of Treatment Reminders Order Date Submit Date Provider Last Modified By Organization Details Last Modified Time Details Appointments None recorded . Lab None recorded . Referral orthoped ic surgeon referral 2022 023 [email or web address] [facility] (Seng Mckeon), [address] [place], [address], 10:59:07 Procedures None recorded . Surgeries applicat ion of naif tape/spl int, phalanx (toe) (SURG) 2022 023 [email or web address] Not available 08:47:35 Imaging XR, toe(s), 2 or more view - right 2022 023 [facility], [address] [place] [address], [address], 09:43:39 Medication Orders None recorded . Patient TargetsNo targets recorded. Patient Instructions Encounter Date Encounter Id Patient Instructions Last Modified By Organization Details Last Modified Time 05/20/2023 [id number] broken toe: care instructions [email or web address] Not available 05/20/2023 09:27:42 Keep toe naif taped as instructed. Wear the cast shoe while walking. Elevate your foot as much as possible. Follow-up with your doctor in one week. Over the counter tylenol or ibuprofen may be taken for pain per package instructions as needed. See printed instructions. Seek Emergency Medical evaluation for any worsening symptoms. [email or web address] Not available 05/20/2023 09:27:41 Patient contacte d after official radiology report returned and orthopedic referral made to [facility] for her. [email or web address] Not available 05/20/2023 10:49:19 Reason for Referral [...] more view No observ ation record ed. [email or web address] [facility] [address] [place], [address], 05/20/2023 10:49:56 Result Notes None recorded. Problems No Known Problems Procedures Surgical History Date Name Laterality Status Provider Name and Address Organization Details Recorded Time NAIF TAPE completed Carly Krueger MD [address] [place], [address], [place] - [facility] 05/20/2023 09:34:42 excision [...] Updated DateTime 3 170.18 cm 23.5 kg/m2 80700.8 6 g 98 % 98 % 81 /min 18 /min 5 96.3 [degF] 129/82 mm[Hg] Radha KENT [employer] 08:35:25 Social History Question Answer Notes LastModified by [employer] Details LastModified Time Tobacco Smoking Status Current Every Day Smoker Radha corrigan PA [employer] 05/20/2023 08:35:07 Have You Had Direct Contact, Or Contact During Intimacy, With Monkeypox Rash, Scabs, Or Body Fluids From A Person With Monkeypox? No Information not available 05/20/2023 How Much Tobacco Do You Smoke? 1 PPW Information not available 05/20/2023 Have You Recently Traveled Abroad? No Information not available 05/20/2023 Sex: Unknown Functional Status Question Answer Note LastModified by [employer] Details LastModified Time Do you use any [...] split virus, quadrivalent, preservative 8 completed Radha [place] null, [place] - [facility] 05/20/2023 08:34:25 Influenza, split virus, quadrivalent, preservative 6 completed Radha [place] null, [place] - [facility] 05/20/2023 08:34:25 Influenza, split virus, quadrivalent, preservative 9 completed Radha [place] null, PA - [facility] 05/20/2023 08:34:25 Influenza, MDCK, quadrivalent, PF 7 completed Radha [place] null, PA - [facility] 05/20/2023 08:34:25 Tdap 8 completed Radha [place] null, PA - [facility] 05/20/2023 08:34:25 Td (adult), 2 Lf tetanus toxoid, preservative free, adsorbed 6 completed Radha Balwinder null, PA - [facility] 05/20/2023 08:34:25 Td (adult), 2 Lf tetanus toxoid, preservative free, adsorbed 9 completed Rdaha Albert [place] null, [place] - [facility] 05/20/2023 08:34:25 Past Encounters Encounter ID Performer Location Encounter Start Date Encounter Closed Date Diagnosis/Indication Diagnosis SNOMED-CT Code Diagnosis ICD10 Code Diagnosis IMO Codes Diagnosis Note [id number] [address] [address] [address] 06/10/2017 13:44:38 06/10/2017 15:04:45 [id number] [address] [address] 10/15/2019 14:46:06 10/15/2019 15:21:06 [id number] [address] [place] [address] 12/23/2015 15:01:16 12/23/2015 15:33:51 [id number] [address] [place] [address] 09/26/2018 15:26:55 09/26/2018 16:30:37 [id number] [address] [place] [address] 12/10/2015 15:37:10 12/10/2015 16:04:06 [id number] Carly Krueger MD [address] [place] [address] 05/20/2023 08:29:54 05/20/2023 09:36:13 Contusion of right great toe 0536391897 5575840 S90.111A Closed fra cture of proximal phalanx of great toe 973978815 S92.414A Health Concerns Section Related Observation LastModified by Organization Detai ls LastModified Time None Recorded Concern Status LastModified by Organization Details LastModified Time None Recorded Advance Directives Directive None Recorded Payers Insurance Date Sequence Insurance Name Policy Number Policy Howard Covered Member ID Howard Member ID Guarantor Name 05/21/2023 1 CHELSEY [id number] Pratibha Burdick [id number] Pratibha Burdick Notes Date Note Type [...] bearing as well. Carly Krueger MD [address] [place], [address], [place] - [facility] 05/20/2023 12:34:15 OBGyn Episode No OBEpisode recorded.
--- OUTSIDE RECORDS SUMMARY | 2025-08-25 09:43 | XMS_ITS | Clinical Summary ---
Author Organization [facility] Address [address] [place] [address] Care Team Providers Care Open Hearth Furnace Laborer Name Role Phone Shoshana Hunter MD Primary [...] age to complete this topic Care Teams Open Hearth Furnace Laborer Relationship Specialty Start Date End Date Shoshana Hunter MD [address] [place] [address] PCP - General Internal Medicine 01/14/21
--- NOTE | 2025-08-30 20:55 | MHC.OFFVIS ---
Intake Visit Reasons: TH for FMLA application , and ffup anxiety Intake Note: TH for FMLA application , and ffup anxiety Allergies No Known Allergies (No Known Allergies*) Allergy (Verified 08/30/25 20:58) Medication List - Last Reconciled 08/30/25 by Shoshana Hunter MD ascorbate calcium (vitamin C) 500 mg PO DAILY bupropion HCl SR (Wellbutrin SR) 150 mg PO QAM calcium carbonate (Calcium 500) 500 mg PO DAILY cholecalciferol (vitamin D3) 25 mcg PO DAILY hydroxyzine HCl 12.5 - 25 mg PO BID PRN meloxicam 15 mg PO DAILY multivitamin 1 tab PO DAILY HPI Comments Details: The patient is a 65-year-old female presenting to discuss completing FMLA paperwork. She reports a recurrence of anxiety and depression due to her work situation, where her employer intends to change her to a different position where she would be working in an enclosed space with poor ventilation and a lot of dust which triggers her claustrophobia and repiratory symptoms . The patient also reports a recent emotional stressor involving her ex-boyfriend and an incident at work where her medical report was read in front of her boss. For her anxiety and depression, she is taking bupropion 150 mg and hydroxyzine as needed. She has a forthcoming therapy appointment on September 08 with Joe at [facility] . . [facility] Medical History Environmental and seasonal allergies Claustrophobia History of ductal carcinoma in situ (DCIS) of breast (~2015) Hepatitis C Tubular adenoma of colon (~2021) Osteopenia of left femoral neck (~2015) Nicotine dependence, cigarettes, uncomplicated Depression with anxiety History of varicose veins Spondylosis of lumbar region without myelopathy or radiculopathy History of COVID-19 Vaccination refused by patient Surgical History History of colonoscopy History of esophagogastroduodenoscopy (EGD) History of right mastectomy History of right breast biopsy History of endometrial ablation History of tubal ligation Family History Father CAD (coronary artery disease) Mother Medical history non-contributory Brother No problems noted. Sister No problems noted. Daughter No problems noted. Social History Housing: House Are you a primary healthcare account manager to a significant other at home: No Do you presently have visiting nurse or other home services: No Alcohol intake: current Alcohol intake frequency: holidays/special occasions only Patient Tobacco Use Status: Current someday Tobacco user Tobacco use type: Cigarette Cigarette Packs Per Day: 0 Cigarettes Per Day: 2 Years Smoked: (onset 13yo, 1/2ppd x 51yrs, now 2cig/day - 25pyh) e-Cigarette/Vaping Use: Never Used service: No Current occupational status: employed Sexual orientation: Straight/Heterosexual Gender identity: Female Cognitive needs: No Hearing needs: No Vision needs: No Review of Systems Const All systems reviewed & are unremarkable except as noted in HPI and below ENT Reports post nasal drip and Denies sore throat Card Denies chest pain, Denies rapid heart rate and Denies irregular heart rhythm Resp Reports cough and Reports wheezing (intermittent wheezing ) GI Reports no additional complaints Musc Reports no additional complaints Psych Reports as per HPI Endo Reports no additional complaints Aller/Immun Reports wheezing (intermittent wheezing ) Telehealth Telehealth Telehealth Platform: [email or web address] Location of patient: address on file Patient Identification confirmed using: Name, : Yes Telehealth method: video Patient verbally consented to treatment: Yes Patient verbally consented to billing insurance company: Yes Patient informed of any privacy concerns related to visit: Yes Minutes spent on Phone/Video with Pt.: 15 Assessment & Plan Assessment & Plan (1) Depression with anxiety: Comment: Ashley MEEKS Code(s): F41.8 - Other specified anxiety disorders Category: Medical (2) Claustrophobia: Code(s): F40.240 - Claustrophobia Category: Medical (3) Environmental and seasonal allergies: Code(s): J30.89 - Other allergic rhinitis Category: Medical Plan 1. Anxiety and Depression The patient reports a recurrence of symptoms due to work-related stress, including a potential change in her job role. She is requesting a continuous FMLA leave of absence for four weeks, beginning August 21 and ending around September 20. Plan: The FMLA paperwork will be completed once received from Bennie. Patient to continue bupropion 150 mg and hydroxyzine as needed. Patient will attend her therapy appointment on September 08. Advised patient to also seek consultation with a psychiatrist. Patient will follow up to ensure the paperwork is faxed to the office. Patient was informed and verbally consented to the use of an ambient scribe for clinic note documentation during this visit. Coding Level of Care Code Tele Est Pt Level 4 (80019) Diagnoses Depression with anxiety F41.8 Claustrophobia F40.240 Environmental and seasonal allergies J30.89
== END 2025-08-25 09:00 | disposition home or self-care (01) ==
LOC: HO.HMCC 08:59
PROVIDERS: PCP Internal Medicine; Visit Provider Internal Medicine
DX: F41.8 Other specified anxiety disorders (principal); F40.240 Claustrophobia; J30.89 Other allergic rhinitis

== ENCOUNTER 2025-09-25 06:35 | Day surgery (SDC) | payer OTHER, SELFPAY ==
--- OUTSIDE RECORDS SUMMARY | 2016-04-14 | XMS_ITS | Encounter Summary ---
Author Organization [facility] Address [address] [place] [address] [place] [address] Phone Care Team Providers Care Greens Keeper Name Role Phone Unavailable Primary Care Provider Unavailabl e Encounter Details Date Type Department Care Team (Late st Contact Info) Description 04/14/2016 Hospital Encounter [facility] IM OUTSIDE IMG [address] [place] [address] System, Provider Not In, [facility] [address] [address] Unknown, Unknown, Social History Tobacco Use Types [...] high school, GED, job training, learning the Mongolian language, technical skills, or developing parenting skills)? [...] your housing situation today? I have george sing 04/04/2025 How many times have you move [...] Comments BI MAMMOGRAM OUTSIDE (NO INTERPRETATION) Routine 04/14/2016 12:00 AM EDT documented in this encounter Results * Mammogram Outside (No Interpretation) (04/14/2016 12:00 AM EDT) Narrative [facility] IMG INTERFACES - 05/11/2016 10:39 AM EDT This study is for PACS storage only and not for interpretation. Procedure Note SYSTEMGENERATED, DOCUMENTATION - 05/11/2016 This study is for PACS storage only and not for interpretation. us Provider Not In System PhD IMG OUTSIDE IMAGING W /OUT INTERPRETATION Final Result [facility] IMG INTERFACES documented in this encounter Visit Diagnoses Not on filedocumented in this encounter Additional Source Comments The information contained in this document represents components of the legal health record. It is not the complete legal health record.[facility]
--- OUTSIDE RECORDS SUMMARY | 2016-04-21 00:15 | XMS_ITS | Encounter Summary ---
Author Organization [facility] Address [address] [place] [address] [place] [address] Phone Care Team Providers Care Ground Wood Supervisor Name Role Phone Unavailable Primary Care Provider Unavailabl e Encounter Details Date Type Department Care Team (Late st Contact Info) Description 04/21/2016 12:15 AM EDT Hospital Encounter [facility] IMG OUTSIDE IMG 2013 [place] [address] Coleen Ann MD [address] [address] [email or web address] Social History Tobacco Use Types Packs/Day [...] high school, GED, job training, learning the Albanian language, technical skills, or developing parenting skills)? [...] OUTSIDE WITH INTERPRETATION OR CONSULT Routine 04/21/2016 12:15 AM EDT Breast cancer, right documented in this encounter Results * (ABNORMAL) Mammogram Outside With Interpretation Or Consult (04/21/2016 12:15 AM EDT) Impressions [facility] - 06/01/2016 3:11 PM EDT IMPRESSION: [...] been entered into a reminder system. Narrative [facility] - 06/01/2016 3:11 PM EDT INTERPRETATION [...] is made with the previous examinations from [place] dated 05/03/2016, 04/21/2016, 04/14/16 and 03/22/2016 . [...] OUTSIDE IMAGING W/ INTE RPRETATION Final Result [facility] [address] [facility] [place] [address] documented in this encounter Visit Diagnoses Diagnosis Breast cancer, right documented in this encounter Additional Source Comments The information contained in this document represents components of the legal health record. It is not the complete legal health record.[facility]
--- OUTSIDE RECORDS SUMMARY | 2016-04-21 00:30 | XMS_ITS | Encounter Summary ---
Author Organization [facility] Address [address] [place] [address] [place] [phone] Phone Care Team Providers Care Work Environment Safety Inspector Name Role Phone Unavailable Primary Care Provider Unavailabl e Encounter Details Date Type Department Care Team (Late st Contact Info) Description 04/21/2016 12:30 AM EDT Hospital Encounter [facility] IMG OUTSIDE IM [address] [place] [address] System, Provider Not In, [facility] [address] [address] Unknown, Unknown, Social History Tobacco Use Types [...] high school, GED, job training, learning the Setswana language, technical skills, or developing parenting skills)? [...] (No Interpretation) (04/21/2016 12:30 AM EDT) Narrative [facility] IMG INTERFACES - 05/11/2016 10:37 AM EDT This study is for PACS storage only and not for interpretation. us Provider Not In System PhD IMG OUTSIDE IMAGING W /OUT INTERPRETATION Final Result [facility] IMG INTERFACES documented in this encounter Visit Diagnoses Not on filedocumented in this encounter Additional Source Comments The information contained in this document represents components of the legal health record. It is not the complete legal health record.[facility]
--- OUTSIDE RECORDS SUMMARY | 2016-05-03 | XMS_ITS | Encounter Summary ---
Author Organization [facility] Address [address] [place] [address] [place] [phone] Phone Care Team Providers Care Softball Coach Name Role Phone Unavailable Primary Care Provider Unavailabl e Encounter Details Date Type Department Care Team (Late st Contact Info) Description 05/03/2016 Hospital Encounter [facility] IM OUTSIDE IMG [address] [place] [address] System, Provider Not In, [facility] [address] [address] Unknown, Unknown, Social History Tobacco Use Types [...] high school, GED, job training, learning the Swedish language, technical skills, or developing parenting skills)? [...] Comments BI MAMMOGRAM OUTSIDE (NO INTERPRETATION) Routine 05/03/2016 12:00 AM EDT documented in this encounter Results * Mammogram Outside (No Interpretation) (05/03/2016 12:00 AM EDT) Narrative [facility] IMG INTERFACES - 05/11/2016 10:36 AM EDT This study is for PACS storage only and not for interpretation. us Provider Not In System PhD IMG OUTSIDE IMAGING W /OUT INTERPRETATION Final Result [facility] IMG INTERFACES documented in this encounter Visit Diagnoses Not on filedocumented in this encounter Additional Source Comments The information contained in this document represents components of the legal health record. It is not the complete legal health record.[facility]
--- OUTSIDE RECORDS SUMMARY | 2025-08-19 09:29 | XMS_ITS | Encounter Summary ---
Author Organization [facility] Address [address] [place] [address] [place] [id number] Phone Care Team Providers Care Supervisor Rose Grading Name Role Phone Shoshana Hunter MD Primary Care Provider Shoshana Hunter MD Unavailable Encounter Details Date Type Department Care Team (Late st Contact Info) Description 05/22/2018 Procedure Pass [facility] PERIOPERATIVE DEPT [address] [place] [address] Social History Tobacco Use Types [...] on filedocumented in this encounter Care Teams Supervisor Rose Grading Relationship Specialty Start Date End Date Shoshana Hunter MD [address] [place] [address] [place] [address] PCP - General Internal Medicine 05/09/16 Shoshana Hunter MD [facility] [place] [address] Referring Physician Internal Medicine 02/27/25 documented as of this encounter Additional Source Comments The information contained in this document represents components of the legal health record. It is not the complete legal health record.[facility]
--- OUTSIDE RECORDS SUMMARY | 2025-08-19 09:30 | XMS_ITS | Encounter Summary ---
Author Organization [facility] Address [address] [place] [address] [place] [phone] Phone Care Team Providers Care Computer System Specialist Name Role Phone Shoshana Hunter MD Primary Care Provider Shoshana Hunter MD Unavailable [phone] Encounter Details Date Type Department Care Team (Late st Contact Info) Description 07/08/2019 Ancillary Orders [facility] Central Scheduling [address] [place] [address] Amy Oconnor MD [address] [place] [id number] [email or web address] Visit for screening mammogram Social History [...] mammogram documented in this encounter Care Teams Computer System Specialist Relationship Specialty Start Date End Date Shoshana Hunter MD [address] [facility] [place] [address] PCP - General Internal Medicine 05/09/16 Shoshana Hunter MD [address] [facility] [place] [address] Referring Physician Internal Medicine 02/27/25 documented as of this encounter Additional Source Comments The information contained in this document represents components of the legal health record. It is not the complete legal health record.[facility]
--- OUTSIDE RECORDS SUMMARY | 2025-08-19 09:30 | XMS_ITS | Clinical Summary ---
Author Organization [facility] Address [address] [place] [address] [place] [address] Phone Care Team Providers Care Shuttle Van Driver Name Role Phone Shoshana Hunter MD Primary Care Provider Shoshana Hunter MD Unavailable [phone] Allergies No known active allergies Medications BIOTIN [...] high school, GED, job training, learning the Welsh language, technical skills, or developing parenting skills)? [...] this topic Medical Devices Implanted Type Area Charging Car Operator Device Identifier Shelf Expiration Date Model / Serial / Lot R Breast Chips Dental N/A: Mouth Description:2 dental implant s, front/middle lower jaw Graft Soft Tissue 19.3x9.6cm Med 1.6 Plus/Minus .4mm Contour Large Perforated Rtu Alloderm Regenerative Matrix Implantable Bx/1ea - [id number] Implanted:Qty: 1 on 06/17/2016 by Mitch Nickerson MD, FACS at [facility] Right: Breast LIFECELL AMOS 07/22/2017 [id number] / / [id number] Implant Breast 3.1cmx12.8cm 300ml Round Smooth Moderate Profile Memorygel - [id number] Implanted:Qty: 1 on 06/17/2016 by Mitch Nickerson MD, FACS at [facility] Right: Breast MENTOR AMOS 07/31/2020 [id number] / / [id number] Srl Natrelle Inspira Breast Implant 200cc Implanted:Qty: 1 on 07/12/2016 by Mitch Nickerson MD, FACS at [facility] Right: Breast 10/12/2020 [id number] / / [id number] Breast Implant Gel Memorygel 3.1cmx12.8 300 Memory Profile Moderate Classic Smooth Round - [id number] Implanted:Qty: 1 on 10/01/2019 by Mitch Nickerson MD, FACS at [facility] Breast MENTOR AMOS 05/25/2024 [id number] / [id number] / [id number] Description:The implant type , laterality (when [...] [facility] [address] [place] [address] Referring Physician: AMY VIVAS M.D. Study: Bone densitometry was performed on Hologic DXA. Accession number: [id number] INDICATION: 57 y/o postmenopausal woman with history [...] to Health Maintenance [place] [address] [place] [address] CIGNA PPO CIGNA PPO CIGNA PPO CIGNA PPO CIGNA PPO CIGNA PPO CIGNA PPO CIGNA PPO CIGNA PPO CIGNA PPO Advance Directives For more information, please contact: [phone] (9AM - 5PM [facility], Monday-Monday) * Full Code (Presumed) (Latest Code Status on File) Date Activated Date Inactivated Comments 06/17/2016 11:11 AM 06/18/2016 7:22 PM * Full Code (Presumed) Date Activated Date Inactivated Comments 06/17/2016 6:25 AM 06/17/2016 11:11 AM Care Teams Shuttle Van Driver Relationship Specialty Start Date End Date Shoshana Hunter MD [facility] [place] [address] PCP - General Internal Medicine 05/09/16 Shoshana Hunter MD [address] [place] [address] [place] [address] Referring Physician Internal Medicine 02/27/25 Additional Source Comments The information contained in this document represents components of the legal health record. It is not the complete legal health record.[facility]
--- OUTSIDE RECORDS SUMMARY | 2025-08-19 09:30 | XMS_ITS | Encounter Summary ---
Author Organization [facility] Address [address] [place] [address] Phone Care Team Providers Care Account Technician Name Role Phone Shoshana Hunter MD Primary Care Provider Shoshana Hunter MD Unavailable [phone] Encounter Details Date Type Department Care Team (Late st Contact Info) Description 06/01/2016 Ancillary Orders [facility] [place] [address] [place] [address] Coleen Ann MD [address] [place] [address] [email or web address] Breast cancer, right (Primary Dx) Social [...] is made with the previous examinations from [place] dated 05/03/2016, 04/21/2016, 04/14/16 and 03/22/2016 . [...] right documented in this encounter Care Teams Account Technician Relationship Specialty Start Date End Date Shoshana Hunter MD [address] [facility] [place] [address] PCP - General Internal Medicine 05/09/16 Shoshana Hunter MD [address] [facility] [place] [address] Referring Physician Internal Medicine 02/27/25 documented as of this encounter Additional Source Comments The information contained in this document represents components of the legal health record. It is not the complete legal health record.[facility]
--- OUTSIDE RECORDS SUMMARY | 2025-08-19 09:30 | XMS_ITS | Encounter Summary ---
Author Organization [facility] Address [address] [place] [address] [place] [address] Phone Care Team Providers Care Museum Curator Name Role Phone Shoshana Hunter MD Primary Care Provider Shoshana Hunter MD Unavailable [phone] Encounter Details Date Type Department Care Team (Late st Contact Info) Description 10/01/2019 Procedure Pass [facility] PERIOPERATIVE DEPT [address] [place] [address] Social History Tobacco Use Types [...] on filedocumented in this encounter Care Teams Museum Curator Relationship Specialty Start Date End Date Shoshana Hunter MD [address] [facility] [place] [address] PCP - General Internal Medicine 05/09/16 Shoshana Hunter MD [address] [place] [address] [place] [address] Referring Physician Internal Medicine 02/27/25 documented as of this encounter Additional Source Comments The information contained in this document represents components of the legal health record. It is not the complete legal health record.[facility]
--- OUTSIDE RECORDS SUMMARY | 2025-08-19 09:30 | XMS_ITS | Encounter Summary ---
Author Organization [facility] Address [address] [place] [address] [place] [address] Phone Care Team Providers Care Hay Buckler Name Role Phone Shoshana Hunter MD Primary Care Provider Shoshana Hunter MD Unavailable [phone] Encounter Details Date Type Department Care Team (Late st Contact Info) Description 12/15/2020 Procedure Pass [facility]- Breast Imaging, [facility] [address] [place] [address] Social History Tobacco Use Types Packs/Day Years [...] on filedocumented in this encounter Care Teams Hay Buckler Relationship Specialty Start Date End Date Shoshana Hunter MD [address] [place] [address] PCP - General Internal Medicine 05/09/16 Shoshana Hunter MD [address] [place] [address] [place] [address] Referring Physician Internal Medicine 02/27/25 documented as of this encounter Additional Source Comments The information contained in this document represents components of the legal health record. It is not the complete legal health record.[facility]
--- OUTSIDE RECORDS SUMMARY | 2025-08-19 09:30 | XMS_ITS | Encounter Summary ---
Author Organization [facility] Address [address] [place] [address] [place] [address] Phone Care Team Providers Care Title Investigator Name Role Phone Shoshana Hunter MD Primary Care Provider Shoshana Hunter MD Unavailable [phone] Encounter Details Date Type Department Care Team (Late st Contact Info) Description 05/11/2020 Ancillary Orders [facility] Central Scheduling [address] [place] [address] Shoshana Hunter MD [facility] [place] [address] Visit for screening mammogram Social History Tobacco [...] mammogram documented in this encounter Care Teams Title Investigator Relationship Specialty Start Date End Date Shoshana Hunter MD [address] [facility] [place] [place] [address] PCP - General Internal Medicine 05/09/16 Shoshana Hunter MD [address] [facility] [place] [address] Referring Physician Internal Medicine 02/27/25 documented as of this encounter Additional Source Comments The information contained in this document represents components of the legal health record. It is not the complete legal health record.[facility]
--- OUTSIDE RECORDS SUMMARY | 2025-08-19 09:30 | XMS_ITS | Encounter Summary ---
Author Organization [facility] Address [address] [place] [address] [place] [address] Phone Care Team Providers Care Philosophy Faculty Name Role Phone Shoshana Hunter MD Primary Care Provider Shoshana Hunter MD Unavailable [phone] Encounter Details Date Type Department Care Team (Late st Contact Info) Description 07/22/2019 Ancillary Orders [facility] Central Scheduling [address] [place] [address] Amy Oconnor MD [address] [place] [address] [email or web address] Visit for screening mammogram Social History [...] mammogram documented in this encounter Care Teams Philosophy Faculty Relationship Specialty Start Date End Date Shoshana Hunter MD [address] [facility] [place] [address] PCP - General Internal Medicine 05/09/16 Shoshana Hunter MD [address] [facility] [place] [address] Referring Physician Internal Medicine 02/27/25 documented as of this encounter Additional Source Comments The information contained in this document represents components of the legal health record. It is not the complete legal health record.[facility]
--- OUTSIDE RECORDS SUMMARY | 2025-08-19 09:30 | XMS_ITS | Encounter Summary ---
Author Organization [facility] Address [address] [place] [address] [place] [address] Phone Care Team Providers Care Network Engineer Name Role Phone Shoshana Hunter MD Primary Care Provider Shoshana Hunter MD Unavailable [phone] Encounter Details Date Type Department Care Team (Late st Contact Info) Description 07/23/2020 Ancillary Orders [facility] Central Scheduling [address] [place] [address] Shoshana Hunter MD [address] [facility] [place] [address] Visit for screening mammogram Social History Tobacco [...] mammogram documented in this encounter Care Teams Network Engineer Relationship Specialty Start Date End Date Shoshana Hunter MD [address] [place] [address] PCP - General Internal Medicine 05/09/16 Shoshana Hunter MD [address] [place] [address] [place] [address] Referring Physician Internal Medicine 02/27/25 documented as of this encounter Additional Source Comments The information contained in this document represents components of the legal health record. It is not the complete legal health record.[facility]
--- OUTSIDE RECORDS SUMMARY | 2025-08-19 09:30 | XMS_ITS | Encounter Summary ---
Author Organization [facility] Address [address] [place] [address] [place] [address] Phone Care Team Providers Care Patient Placement Coordinator Name Role Phone Shoshana Hunter MD Primary Care Provider Shoshana Hunter MD Unavailable [phone] Encounter Details Date Type Department Care Team (Late st Contact Info) Description 07/08/2019 Ancillary Orders [facility] [place] [address] [facility] 10th [place] [address] Amy Oconnor MD [address] [place] [address] [email or web address] Social History Tobacco Use Types Packs/Day [...] on filedocumented in this encounter Care Teams Patient Placement Coordinator Relationship Specialty Start Date End Date Shoshana Hunter MD [facility] [place] [address] PCP - General Internal Medicine 05/09/16 Shoshana Hunter MD [address] [facility] [place] [address] Referring Physician Internal Medicine 02/27/25 documented as of this encounter Additional Source Comments The information contained in this document represents components of the legal health record. It is not the complete legal health record.[facility]
--- OUTSIDE RECORDS SUMMARY | 2025-08-19 09:30 | XMS_ITS | Encounter Summary ---
Author Organization [facility] Address [address] [place] [address] [place] [address] Phone Care Team Providers Care Quality Control Industrial Engineer Name Role Phone Shoshana Hunter MD Primary Care Provider Shoshana Hunter MD Unavailable [phone] Encounter Details Date Type Department Care Team (Late st Contact Info) Description 05/11/2016 Ancillary Orders [facility] Imaging Services [address] [place] [address] System, Provider Not In, [place] [address] Social History Tobacco Use Types Packs/Day Years [...] (No Interpretation) (05/03/2016 12:00 AM EDT) Narrative [facility] IMG INTERFACES - 05/11/2016 10:36 AM EDT This study is for PACS storage only and not for interpretation. us Provider Not In System PhD IMG OUTSIDE IMAGING W /OUT INTERPRETATION Final Result Performing Organization Address City/[facility] de Phone Number [facility] IMG INTERFACES * Mammogram Outside (No Interpretation) (04/21/2016 12:30 AM EDT) Narrative [facility] INTERFACES - 05/11/2016 10:37 AM EDT This study is for PACS storage only and not for interpretation. us Provider Not In System PhD IMG OUTSIDE IMAGING W /OUT INTERPRETATION Final Result Performing Organization Address City/[facility] de Phone Number [facility] IMG INTERFACES * [...] /OUT INTERPRETATION Final Result Performing Organization Address [facility] de Phone Number [facility] IMG INTERFACES * [...] /OUT INTERPRETATION Final Result Performing Organization Address [facility] de Phone Number NW IMG INTERFACES documented in this encounter Visit Diagnoses Not on filedocumented in this encounter Care Teams Quality Control Industrial Engineer Relationship Specialty Start Date End Date Shoshana Hunter MD [address] [facility] [place] [address] PCP - General Internal Medicine 05/09/16 Shoshana Hunter MD [facility] [place] [address] Referring Physician Internal Medicine 02/27/25 documented as of this encounter Additional Source Comments The information contained in this document represents components of the legal health record. It is not the complete legal health record.[facility]
--- OUTSIDE RECORDS SUMMARY | 2025-08-19 09:30 | XMS_ITS | Encounter Summary ---
Author Organization [facility] Address [address] [place] [address] Phone Care Team Providers Care Hot Box Spotter Name Role Phone Shoshana Hunter MD Primary Care Provider Shoshana Hunter MD Unavailable [phone] Reason for Visit * Reason Onset Date Comments Post Discharge Follow Up Call 06/21/2016 Encounter Details Date Type Department Care Team (Late st Contact Info) Description 06/21/[address] [facility] [address] [place] [address] Gabriela Blackwell RN [address] [place] [address] [email or web address] Discharge Follow Up Call Social [...] on filedocumented in this encounter Care Teams Hot Box Spotter Relationship Specialty Start Date End Date Shoshana Hunter MD [facility] [place] [address] PCP - General Internal Medicine 05/09/16 Shoshana Hunter MD [address] [facility] [place] [address] Referring Physician Internal Medicine 02/27/25 documented as of this encounter Additional Source Comments The information contained in this document represents components of the legal health record. It is not the complete legal health record.[facility]
--- OUTSIDE RECORDS SUMMARY | 2025-08-19 09:30 | XMS_ITS | Clinical Summary ---
Author Organization [facility] Address [address] [place] [address] Care Team Providers Care Non Profit Job Titles Name Role Phone Shoshana Hunter MD Primary [...] age to complete this topic Care Teams Non Profit Job Titles Relationship Specialty Start Date End Date Shoshana Hunter MD [address] [place] [address] PCP - General Internal Medicine 01/14/21
--- OUTSIDE RECORDS SUMMARY | 2025-08-19 09:30 | XMS_ITS | Encounter Summary ---
Author Organization [facility] Address [address] [place] [address] [place] [address] Phone Care Team Providers Care Breaker Tender Name Role Phone Shoshana Hunter MD Primary Care Provider Shoshana Hunter MD Unavailable [phone] Encounter Details Date Type Department Care Team (Late st Contact Info) Description 06/23/2020 Procedure Pass [facility]- Breast Imaging, [facility] [address] [place] [address] Social History Tobacco Use Types Packs/Day Years [...] on filedocumented in this encounter Care Teams Breaker Tender Relationship Specialty Start Date End Date Shoshana Hunter MD [facility] [place] [address] PCP - General Internal Medicine 05/09/16 Shoshana Hunter MD [address] [place] [address] [place] [address] Referring Physician Internal Medicine 02/27/25 documented as of this encounter Additional Source Comments The information contained in this document represents components of the legal health record. It is not the complete legal health record.[facility]
--- OUTSIDE RECORDS SUMMARY | 2025-08-19 09:30 | XMS_ITS | Patient Health Record ---
Author Organization [facility] Address [address] [facility] [place] [address] Care Team Providers Care Ux Architect Name Role Phone Dale MESA, Shoshana Wilkerson Primary Care Provider Un available Gloria Poe Unavailable [phone] Reason For Referral No Information Medications Medication [...] Problem Acquired hammer toe of right foot (4519667463839 105) Other hammer toe(s) (acquired), right foot (M20.41) Active confirmed Problem Acquired hammer toe of left foot ([id number] 103) Other hammer toe(s) (acquired), left foot (M20.42) Active confirmed Plan Of Treatment No Information Insurance Providers Payer Name Payer Address Payer Phone Subscriber Number Group Number Insured Name Patient Relationship to Insured Coverage Start Date Coverage End Date Cigna [address] [place] [phone] [id number] Pratibha Burdick Self - patient is the [...]
--- OUTSIDE RECORDS SUMMARY | 2025-08-19 09:31 | XMS_ITS | Clinical Summary ---
Author Organization [facility] Address [address] [place] [address] Care Team Providers Care Product Craftsman Name Role Phone Shoshana Hunter MD Primary Care Provider [phone] Social History Tobacco Use Types Packs/Day Years [...] age to complete this topic Care Teams Product Craftsman Relationship Specialty Start Date End Date Shoshana Hunter MD [address] [place] [address] PCP - General Internal Medicine 01/14/21
--- NOTE | 2025-09-22 12:52 | HO.ANESPROP2 ---
Documented by User: Tammi Roberto NP 09/22/25 12:52 HPI - Anesthesia Eval Consult details Narrative: 65 yr old female for colonoscopy PMF Active Problems Active Problems: All Active Problems (Updated 07/26/25 @ 14:46 by Joy Law PA-C) Right upper limb pain (Acute) Environmental and seasonal allergies (Acute) History of constipation (Acute) Claustrophobia (Acute) History of ductal carcinoma in situ (DCIS) of breast (Acute ~2015) Osteopenia of left femoral neck (Acute ~2015) Tubular adenoma of colon (Acute ~2021) Nicotine dependence, cigarettes, uncomplicated (Acute) Depression with anxiety (Acute) Spondylosis of lumbar region without myelopathy or radiculopathy (Acute) Vaccination refused by patient (Acute) Past Medical History Medical History Environmental and seasonal allergies Claustrophobia History of ductal carcinoma in situ (DCIS) of breast (~2015) Hepatitis C Tubular adenoma of colon (~2021) Osteopenia of left femoral neck (~2015) Nicotine dependence, cigarettes, uncomplicated Depression with anxiety History of varicose veins Spondylosis of lumbar region without myelopathy or radiculopathy History of COVID-19 Vaccination refused by patient Family History Family History Father CAD (coronary artery disease) Mother Medical history non-contributory Brother No problems noted. Sister No problems noted. Daughter No problems noted. Family history of problems with anesthesia: No Surgical History Surgical History History of colonoscopy History of esophagogastroduodenoscopy (EGD) History of right mastectomy History of right breast biopsy History of endometrial ablation History of tubal ligation History of Problems with Anesthesia: No Social History Social History Housing: House Are you a primary care transitions nurse to a significant other at home: No Do you presently have visiting nurse or other home services: No Alcohol intake: current Alcohol intake frequency: holidays/special occasions only Patient Tobacco Use Status: Current everyday Tobacco user Tobacco use type: Cigarette Cigarette Packs Per Day: 0 Cigarettes Per Day: 1 Years Smoked: (onset 13yo, 1/2ppd x 51yrs, now 2cig/day - 25pyh) e-Cigarette/Vaping Use: Never Used Use of substances other than those prescribed or required for medical reasons: No Are you DNR?: No Advance Directives: No Advance Directives Information Provided: Yes Patient : No : No service: No Current occupational status: employed Sexual orientation: Straight/Heterosexual Gender identity: Female Cognitive needs: No Hearing needs: No Vision needs: No Meds Allergies Allergy/AdvReac Type Severity Reaction Status Date / Time No Known Allergies (No Known Allergy Verified 08/30/25 20:58 Allergies*) Home Medications ?Medication ?Instructions ?Recorded ?Confirmed ?Last Taken ?Type ascorbate calcium (vitamin C) 500 500 mg PO DAILY 03/24/21 09/23/25 Unknown History mg tablet calcium carbonate (Calcium 500) 500 mg PO DAILY 03/24/21 09/23/25 Unknown History cholecalciferol (vitamin D3) 25 25 mcg PO DAILY 03/24/21 09/23/25 Unknown History mcg (1,000 unit) capsule multivitamin 1 tab PO DAILY 03/24/21 09/23/25 Unknown History hydroxyzine HCl 25 mg tablet 12.5 - 25 mg PO BID PRN anxiety 07/03/25 09/23/25 Unknown History Assessment and Plan Final Anesthetic Review Family History of Problems with Anesthesia: No History of Problems with Anesthesia: No Documented by User: Sergey Schultz MD 09/25/25 07:24 [facility] Past Medical History Medical History Environmental and seasonal allergies Claustrophobia History of ductal carcinoma in situ (DCIS) of breast (~2015) Hepatitis C Tubular adenoma of colon (~2021) Osteopenia of left femoral neck (~2015) Nicotine dependence, cigarettes, uncomplicated Depression with anxiety History of varicose veins Spondylosis of lumbar region without myelopathy or radiculopathy History of COVID-19 Vaccination refused by patient Functional capacity: independent ambulation Family History Family History Father CAD (coronary artery disease) Mother Medical history non-contributory Brother No problems noted. Sister No problems noted. Daughter No problems noted. Surgical History Surgical History History of colonoscopy History of esophagogastroduodenoscopy (EGD) History of right mastectomy History of right breast biopsy History of endometrial ablation History of tubal ligation Social History Social History Housing: House Are you a primary care transitions nurse to a significant other at home: No Do you presently have visiting nurse or other home services: No Alcohol intake: current Alcohol intake frequency: holidays/special occasions only Patient Tobacco Use Status: Current everyday Tobacco user Tobacco use type: Cigarette Cigarette Packs Per Day: 0 Cigarettes Per Day: 1 Years Smoked: (onset 13yo, 1/2ppd x 51yrs, now 2cig/day - 25pyh) e-Cigarette/Vaping Use: Never Used Use of substances other than those prescribed or required for medical reasons: No Are you DNR?: No Advance Directives: No Advance Directives Information Provided: Yes Patient : No : No service: No Current occupational status: employed Sexual orientation: Straight/Heterosexual Gender identity: Female Cognitive needs: No Hearing needs: No Vision needs: No Meds Allergies Allergy/AdvReac Type Severity Reaction Status Date / Time No Known Allergies (No Known Allergy Verified 08/30/25 20:58 Allergies*) Home Medications ?Medication ?Instructions ?Recorded ?Confirmed ?Last Taken ?Type ascorbate calcium (vitamin C) 500 500 mg PO DAILY 03/24/21 09/23/25 Unknown History mg tablet calcium carbonate (Calcium 500) 500 mg PO DAILY 03/24/21 09/23/25 Unknown History cholecalciferol (vitamin D3) 25 25 mcg PO DAILY 03/24/21 09/23/25 Unknown History mcg (1,000 unit) capsule multivitamin 1 tab PO DAILY 03/24/21 09/23/25 Unknown History hydroxyzine HCl 25 mg tablet 12.5 - 25 mg PO BID PRN anxiety 07/03/25 09/23/25 Unknown History Exam Exam Date and Time: 09/25/25 Airway Mallampati Class: II TM Dist: >3cm Neck ROM: Full Denture: Upper Partial: Lower Loose/Missing/Broken Teeth: Yes (no teeth) Heart: rrr Lungs: cta Assessment and Plan Final Anesthetic Review NPO: Yes ASA Class: II Final Preanesthetic Review: No Changes in Pt Med Stat, Meds/Allgs Chart Reviewed, Consent Obtained/Reviewed and Anes Risks/Benef Reviewed Patient Risk: Low Procedure Risk: Low Anesthetic Plan Anesthetic Plan: MAC: Disposition: Standard PACU
[2025-09-23 12:10] VITALS: BMI 20.4
[2025-09-25 06:53] VITALS: BMI 21.9
[2025-09-25 07:00] VITALS: BP 129/81; PULSE 76; RESP 16; TEMP 36.7; O2SAT 98
[2025-09-25] MEDS: Lactated Ringers 1,000 ML 100 ML IVCONT (07:14)
--- NOTE | 2025-09-25 07:52 | P.HPSUR_ITS ---
Pre-Procedural Eval Section A - 24 Hr Update-Section A only Date of Service: 09/25/25 Section B - Complete if H&P > 30 days Chief Complaint: Hx of polyps Details of Present Illness: Environmental and seasonal allergies Claustrophobia History of ductal carcinoma in situ (DCIS) of breast (~2015) Hepatitis C Tubular adenoma of colon (~2021) Osteopenia of left femoral neck (~2015) Nicotine dependence, cigarettes, uncomplicated Depression with anxiety History of varicose veins Spondylosis of lumbar region without myelopathy or radiculopathy History of COVID-19 Vaccination refused by patient Surgical History History of colonoscopy History of esophagogastroduodenoscopy (EGD) History of right mastectomy History of right breast biopsy History of endometrial ablation History of tubal ligation Present Medications: see Short Stay Collaborative assessment Allergies: Allergies Allergy/AdvReac Type Severity Reaction Status Date / Time No Known Allergies (No Known Allergy Verified 08/30/25 20:58 Allergies*) Review of Systems Review of Systems Comment: Ten point ROS negative Exam Exam Comment: Gen appear: No acute distress HEENT: no icterus Chest: No overt resp distress Abd: soft, nontender, nondistended Psych: Stable affect, answering questions appropriately Neuro: A/Ox3 noted to move all extremities spontaneously Ext: no peripheral edema Plan Diagnosis/Plan: Unchanged I have reviewed the history and physical and performed a pertinent physical examination on my patient. No changes have occurred unless specified. Time Spent With Patient Time: Total time managing care of this patient today ____ minutes.
--- NOTE | 2025-09-25 08:34 | P.OPN-COLO_ITS ---
Colonoscopy Operative Note Operative Note Date of Service: 09/25/25 Narrative: Procedure: Colonoscopy Indication: Personal history of polyps Endoscopist: Aisah Zimmerman MD Anesthesia Provider: Dr Schultz Anesthesia type: MAC Instrument: Olympus [id number]-[id number] Consent: Indication, risks vs benefits, and alternatives were discussed with the patient who gave written informed consent to proceed. EKG, pulse, pulse oximetry and blood pressure were monitored throughout the procedure. Please see anesthesia flowsheet. Procedure: The patient was brought to the procedure room and placed in the left lateral decubitus position. IV medications were administered by the anesthesia provider in attendance. A digital rectal exam was performed which was abnormal due to finding of hemorrhoids. A distal attachment cap was affixed to the tip of the colonoscope which was then inserted through the anus and advanced through the colon to the cecum at 75 cm,and terminal ileum. Appendiceal orifice and ileocecal valve were identified. Mucosa was carefully examined under high definition white light as the instrument was slowly withdrawn in a retrograde panoramic fashion. Retroflexion was performed in rectum. The procedure was not difficult. There were no immediate obvious complications. The quality of the prep was BBPS: 2+3+3 = adequate Withdrawal time 20 minutes. Limitations: No limitations. Findings: Mucosa: Normal to cecum and terminal ileum. Protruding lesions: * 1 sessile polyp of size 2 mm in cecum. Cold snare polypectomy was performed. The polyp was completely removed and retrieved. * 1 sessile polyp of size 4 mm in transverse colon. Cold snare polypectomy was performed. The polyp was completely removed and retrieved. * 2 sessile polyps of size 4-8 mm in rectum. Cold snare polypectomy was performed. The polyps were completely removed and retrieved. * Medium internal hemorrhoids without stigmata of recent bleeding. Excavated lesions: * Moderate diverticulosis of left sided colon. Impression: 1. Normal colon and terminal ileum mucosa 2. Total of 4 polyps removed 3. Diverticulosis 4. External and internal hemorrhoids Recommendations: - Follow path results. - Repeat colonoscopy in 3 years if 3 or more polyps are adenomas, otherwise 5 years.
[2025-09-25 08:38] VITALS: BP 115/74; PULSE 68; RESP 16; TEMP 36.3; O2SAT 99
[2025-09-25 08:50] VITALS: BP 122/68; PULSE 72; RESP 16; TEMP 36.3; O2SAT 99
== END 2025-09-25 10:03 | disposition home or self-care (01) ==
PROVIDERS: PCP Internal Medicine; Visit Provider Internal Medicine
PROC: 0DJD8ZZ Inspection of Lower Intestinal Tract, Via Natural or Artificial Opening Endoscopic (ICD-10-PCS; CPT 45378; principal; 2025-09-25 07:30)
DX: Z12.11 Encounter for screening for malignant neoplasm of colon (principal); Z86.0101 Personal history of adenomatous and serrated colon polyps; Z87.19 Personal history of other diseases of the digestive system; K57.30 Diverticulosis of large intestine without perforation or abscess without bleeding; K64.4 Residual hemorrhoidal skin tags; K64.8 Other hemorrhoids; D12.0 Benign neoplasm of cecum; K63.5 Polyp of colon
CPT/HCPCS: 45380; 45385; 88305; J2003; J2704; J3010

== ENCOUNTER → 2025-09-25 06:35 | Outpatient (BNV) | payer OTHER, SELFPAY | PROVIDERS: PCP Internal Medicine; Visit Provider Internal Medicine | DX: Z12.11 Encounter for screening for malignant neoplasm of colon (principal); K63.5 Polyp of colon; K57.90 Diverticulosis of intestine, part unspecified, without perforation or abscess without bleeding; K64.8 Other hemorrhoids | CPT/HCPCS: 45385 ==